=== PATIENT | female | born 1970 | race Caucasian/White ===

== ENCOUNTER 2019-02-12 12:08 | Emergency (ER) | payer MEDICAID, OTHER ==
[~2019-02-12] VITALS: Ht 157.5 cm; Wt 72.6 kg
--- OUTSIDE RECORDS SUMMARY | 2019-02-12 12:17 | XMS REPORT ---
Author Author STAR GARCIA Organization [facility] Address [address] [place] [address] Care Team Providers Care Cloth Shearer Name Role Phone STAR GARCIA Unavailable PROBLEMS Type Condition ICD9-CM Code [id number] Code Onset Dates Condition Status SNOMED Code Problem Essential hypertension I10 Active 28899258 Problem COPD mixed type J44.9 Active 17500901 Problem Hyperlipidemia, unspecified hyperlipidemia type E78.5 Active 19949199 Problem Gastroesophageal reflux disease without esophagitis K21.9 Active 981230568 Problem Lumbago with sciatica, left side M54.42 Active 331968142 Problem Depression with anxiety F41.8 Active 99084183 Problem Lumbago with sciatica, right side M54.41 Active 167676142854085 Problem Mental retardation F79 Active 421476805 Problem Other chronic pain G89.29 Active 86668892 Problem Anxiety with depression F41.8 Active 32101074 Problem Neuropathy of both feet G57.93 Active 655238464 Problem Insomnia, unspecified type G47.00 Active 770335019 ALLERGIES No Information ENCOUNTERS Encounter Location Date Diagnosis [address] [address] January, Lumbago with sciatica, left side M54.[address] [address] Dec, Lumbago with sciatica, left side M54.[address] [address] Dec, Insomnia, unspecified type G47.00 and Depression with anxiety F41.[address] [address] Dec, [address] [address] Dec, [facility] [address] [address] Dec, Lumbago with sciatica, left side M54.[address] [address] Nov, Lumbago with sciatica, left side M54.42 [facility] [address] [id number] [address] Nov, Depression with anxiety F41.[address] [address] Nov, Depression with anxiety F41.8 [facility] [address] [id number] [address] Nov, [address] [address] Nov, [address] [address] Nov, Depression with anxiety F41.8 ; Hyperlipidemia, unspecified hyperlipidemia type E78.5 and Essential hypertension I10 [facility] [address] [address] Nov, [address] [address] Nov, Essential hypertension I10 [address] [address] Nov, [address] [address] Nov, Essential hypertension I10 [address] [address] Oct, [facility] [address] [facility] [id number] [address] Oct, [address] [address] Oct, [facility] [address] [facility] [id number] [address] Oct, Neuropathy of both feet G57.93 [facility] [address] [place] [address] [place] [id number] 14 Oct, [address] [address] Oct, [address] [address] Oct, Essential hypertension I10 ; Anxiety with depression F41.8 ; COPD mixed type J44.9 ; Other chronic pain G89.29 ; Non-recurrent acute suppurative otitis media of right ear without spontaneous rupture of tympanic membrane H66.001 ; Lumbago with sciatica, left side M54.42 ; Lumbago with sciatica, right side M54.41 ; Insomnia, unspecified type G47.00 ; Neuropathy of both feet G57.93 and Gastroesophageal reflux disease without esophagitis K21.9 [facility] [address] [facility] [id number] [address] Jul, Depression with anxiety F41.8 ; COPD mixed type J44.9 ; Essential hypertension I10 ; Hyperlipidemia, unspecified hyperlipidemia type E78.5 ; Pain in thoracic spine M54.6 and Other chronic pain G89.[address] [facility] [address] [place] [address] Apr, [address] [address] Mar, COPD mixed type J44.9 ; Depression with anxiety F41.8 ; Gastroesophageal reflux disease without esophagitis K21.9 ; Essential hypertension I10 and Mental retardation F79 [facility] [address] [place] [address] Aug, IMMUNIZATIONS No Known Immunizations SOCIAL HISTORY Never Assessed REASON FOR VISIT Controlled Med Refill 11/22 PLAN OF CARE VITAL SIGNS MEDICATIONS Medication Instructions Dosage Frequency Start Date End Date Duration Status Klonopin 0.5 MG Orally 2 times a day 1/2 tablet 12h Oct, 05 days Active RESULTS No Results PROCEDURES No Known procedures INSTRUCTIONS MEDICATIONS ADMINISTERED No Known Medications MEDICAL (GENERAL) HISTORY Type Description Date Medical History patient poor historian Medical History HTN Medical History anxiety and depression Medical History Chronic obstructive pulmonary disease, unspecified Surgical History hysterectomy Surgical History Surgical History colonoscopy with possible polyps, repeat 1-2 years from now 2016 Hospitalization History surgeries/childbirth Hospitalization History chest pain
--- OUTSIDE RECORDS SUMMARY | 2019-02-12 12:17 | XMS REPORT ---
Author Author MARINA GUERRERO Organization [facility] [address] Address [address] [place] [address] Care Team Providers Care Foundry Hand Name Role Phone MARINA GUERRERO Unavailable PROBLEMS Type Condition ICD9-CM Code [id number] Code Onset Dates Condition Status SNOMED Code Problem Essential hypertension I10 Active 90806218 Problem Depression with anxiety F41.8 Active 86903008 Problem COPD mixed type J44.9 Active 66132666 Problem Mental retardation F79 Active 806511704 Problem Gastroesophageal reflux disease without esophagitis K21.9 Active 254124251 ALLERGIES No Information ENCOUNTERS Encounter Location Date Diagnosis [facility] [address] [place] [address] Apr, [facility] [address] [place] [address] Mar, COPD mixed type J44.9 ; Depression with anxiety F41.8 ; Gastroesophageal reflux disease without esophagitis K21.9 ; Essential hypertension I10 and Mental retardation F79 [facility] [address] [place] [address] Aug, IMMUNIZATIONS No Known Immunizations SOCIAL HISTORY Never Assessed REASON FOR VISIT Medication question PLAN OF CARE VITAL SIGNS MEDICATIONS Unknown Medications RESULTS No Results PROCEDURES No Known procedures INSTRUCTIONS MEDICATIONS ADMINISTERED No Known Medications MEDICAL (GENERAL) HISTORY Type Description Date Medical History patient poor historian Medical History HTN Surgical History hysterectomy Surgical History Surgical History colonoscopy with possible polyps, repeat 1-1/2 years from now 2016 Hospitalization History surgeries/childbirth Hospitalization History chest pain
--- OUTSIDE RECORDS SUMMARY | 2019-02-12 12:17 | XMS REPORT ---
Author Author MARINA GUERRERO Organization [facility] [address] Address [address] [place] [address] Care Team Providers Care Recapper Name Role Phone MARINA GUERRERO Unavailable PROBLEMS Type Condition ICD9-CM Code [id number] Code Onset Dates Condition Status SNOMED Code Problem Essential hypertension I10 Active 90932273 Problem Depression with anxiety F41.8 Active 55702331 Problem COPD mixed type J44.9 Active 51631491 Problem Mental retardation F79 Active 319387748 Problem Gastroesophageal reflux disease without esophagitis K21.9 Active 318156891 ALLERGIES Substance Reaction Event Type Date Status Iodine anaphylaxis Drug Allergy Mar, Active ENCOUNTERS Encounter Location Date [facility] [address] [place] [phone] Apr, [facility] [address] [place] [phone] Mar, COPD mixed type J44.9 ; Depression with anxiety F41.8 ; Gastroesophageal reflux disease without esophagitis K21.9 ; Essential hypertension I10 and Mental retardation F79 [facility] [place] [address] [place] [phone] Aug, IMMUNIZATIONS No Known Immunizations SOCIAL HISTORY Never Assessed REASON FOR VISIT Establish Chaka Sher RN, Patient brought in medications with her to [facility], she reports taking xanax 1 mg 3 times per day but she did not have the [facility] PLAN OF CARE Activity Details Follow Up 4 Weeks Reason:copd/bp VITAL SIGNS Height 62 in 2018-04-01 Weight 155.1 lbs 2018-04-01 Temperature 97.9 degrees Fahrenheit 2018-04-01 Heart Rate 88 bpm 2018-04-01 Respiratory Rate 18 2018-04-01 BMI 28.37 kg/m2 2018-04-01 Blood pressure systolic 150 mmHg 2018-04-01 Blood pressure diastolic 92 mmHg 2018-04-01 MEDICATIONS Medication Instructions Dosage Frequency Start Date End Date Duration Status Duloxetine HCl 30 MG Orally Once a day 1 capsule 24h Active Ondansetron HCl 4 MG Orally every8 hrs 1 tablet as needed Active Pantoprazole Sodium 40 MG Orally Once a day 1 tablet 24h Active ProAir HFA 108 (90 Base) MCG/ACT Inhalation every 6 hrs 2 puffs as needed 6h Active Aspirin Adult Low Dose 81 MG Orally Once a day 1 tablet 24h Active Potassium Chloride ER 10 MEQ Orally Once a day 2 tablet with food 24h Active Loperamide HCl 2 MG Orally Four times a day 1 tablet as needed 6h Active Cyclobenzaprine HCl 10 MG Orally Three times a day 1 tablet as needed 8h Active Propranolol HCl 20 mg Orally 3 times a day 1 tablet 8h Active RESULTS No Results PROCEDURES Procedure Date Ordered Result Body Site LAB [facility] April 01, 2018 INSTRUCTIONS MEDICATIONS ADMINISTERED No Known Medications MEDICAL (GENERAL) HISTORY Type Description Date Medical History patient poor historian Medical History HTN Surgical History hysterectomy Surgical History Surgical History colonoscopy with possible polyps, repeat 1-1/2 years from now 2016 Hospitalization History surgeries/childbirth Hospitalization History chest pain
--- OUTSIDE RECORDS SUMMARY | 2019-02-12 12:17 | XMS REPORT ---
Author Author AMANDO QUISPE Organization [facility] Address [address] [place] [address] Care Team Providers Care Mat Repairer Name Role Phone AMANDO QUISPE Unavailable PROBLEMS Type Condition ICD9-CM Code ZGD29-YB Code Onset Dates Condition Status SNOMED Code Problem COPD mixed type J44.9 Active 81372533 Problem Other chronic pain G89.29 Active 17591910 Problem Hyperlipidemia, unspecified hyperlipidemia type E78.5 Active 00283195 Problem Mental retardation F79 Active 764804480 Problem Gastroesophageal reflux disease without esophagitis K21.9 Active 054846886 Problem Essential hypertension I10 Active 02434629 Problem Depression with anxiety F41.8 Active 46502058 ALLERGIES Substance Reaction Event Type Date Status Iodine anaphylaxis Drug Allergy Jul, Active ENCOUNTERS Encounter Location Date Diagnosis [facility] [address] [facility] [id number] [address] Jul, Depression with anxiety F41.8 ; COPD mixed type J44.9 ; Essential hypertension I10 ; Hyperlipidemia, unspecified hyperlipidemia type E78.5 ; Pain in thoracic spine M54.6 and Other chronic pain G89.29 [facility] [address] [place] [address] Apr, [facility] [address] [place] [phone] Mar, COPD mixed type J44.9 ; Depression with anxiety F41.8 ; Gastroesophageal reflux disease without esophagitis K21.9 ; Essential hypertension I10 and Mental retardation F79 [facility] [address] [place] [phone] Aug, IMMUNIZATIONS No Known Immunizations SOCIAL HISTORY Never Assessed REASON FOR VISIT establish care - transf from dr hector byrne in [place], medica tion refills Constance Trevizo MA PLAN OF CARE Activity Details Follow Up 3 Months. 3 months or as indicated by lab Reason: VITAL SIGNS Height 62 in 2018-08-12 Weight 154.5 lbs 2018-08-12 Temperature 97.2 degrees Fahrenheit 2018-08-12 Heart Rate 97 bpm 2018-08-12 Respiratory Rate 20 2018-08-12 BMI 28.26 kg/m2 2018-08-12 Blood pressure systolic 136 mmHg 2018-08-12 Blood pressure diastolic 84 mmHg 2018-08-12 MEDICATIONS Medication Instructions Dosage Frequency Start Date End Date Duration Status Potassium Chloride ER 10 MEQ Orally Once a day 2 tablet with food 24h Active ProAir HFA 108 (90 Base) MCG/ACT Inhalation every 6 hrs 2 puffs as needed 6h Active Propranolol HCl 20 mg Orally 3 times a day 1 tablet 8h Active Duloxetine HCl 30 MG Orally Once a day 1 capsule 24h Active Tizanidine HCl 4 MG Orally 4 times a day, prn muscle spasm 1 tablet as needed Jul, 28 days Active Simvastatin 5 mg Orally Once a day 1 tablet in the evening 24h 30 day(s) Active Aspirin Adult Low Dose 81 MG Orally Once a day 1 tablet 24h Active Pantoprazole Sodium 40 MG Orally Once a day 1 tablet 24h Active Loperamide HCl 2 MG Orally Four times a day 1 tablet as needed 6h Active Ondansetron HCl 4 MG Orally every8 hrs 1 tablet as needed Active Aspirin 81 MG Orally Once a day 1 tablet 24h Jul, 30 day(s) Active RESULTS No Results PROCEDURES No Known procedures INSTRUCTIONS MEDICATIONS ADMINISTERED No Known Medications MEDICAL (GENERAL) HISTORY Type Description Date Medical History patient poor historian Medical History HTN Surgical History hysterectomy Surgical History Surgical History colonoscopy with possible polyps, repeat 1-1/2 years from now 2016 Hospitalization History surgeries/childbirth Hospitalization History chest pain
--- OUTSIDE RECORDS SUMMARY | 2019-02-12 12:17 | XMS REPORT | Continuity of Care Document ---
Author Organization Unknown Address Unknown Allergies There is no data. Medications There is no data. Problems There is no data. Procedures There is no data. Results There is no data. Encounters ACCT No. Visit Date/Time Discharge Status Pt. Type Provider Facility Loc./Unit Complaint [id number] 02/03/2019 10:20:00 02/03/2019 23:59:59 CLS Outpatient GENOVEVA BROWN [facility]
--- OUTSIDE RECORDS SUMMARY | 2019-02-12 12:17 | XMS REPORT ---
Author Author MARINA GUERRERO [facility] Address [address] [place] [address] Care Team Providers Care Book Illustrator Name Role Phone MARINA GUERRERO Unavailable PROBLEMS Unknown Problems ALLERGIES No Information ENCOUNTERS Encounter Location Date Diagnosis [facility] [address] [facility] [id number] [place] [id number] Aug, IMMUNIZATIONS No Known Immunizations SOCIAL HISTORY Never Assessed REASON FOR VISIT PMH attempt PLAN OF CARE VITAL SIGNS MEDICATIONS Medication Instructions Dosage Frequency Start Date End Date Duration Status Propranolol HCl 20 mg Orally 3 times a day 1 tablet 8h Active RESULTS No Results PROCEDURES No Known procedures INSTRUCTIONS MEDICATIONS ADMINISTERED No Known Medications MEDICAL (GENERAL) HISTORY Type Description Date Medical History patient poor historian
[2019-02-12] MEDS: LIDOCAINE 1% INJ 20 ML 20 ML VIAL INJ ONE (12:20)
--- NOTE | 2019-02-12 12:24 | ED Head Injury ---
General Chief Complaint: Head/Cervical Problems Stated Complaint: HEAD INJ Source: patient Exam Limitations: no limitations History of Present Illness Date Seen by Provider: February 12, 2019 Time Seen by Provider: 12:08 Initial Comments Patient comes ER by private conveyance with her sister and chief complaint that 3 or 4 days ago she was working in her dog's kennel and struck the top of her right parietal scalp against the inside bar of the kennel. She thinks, infected because now it's getting more swollen and painful and causing headaches today. She has history of abscesses in the past. No fevers chills nausea or loss of consciousness. Allergies and Home Medications Allergies Coded Allergies: iodine (Verified Allergy, Unknown, 02/12/19) diphenhydramine (Verified Adverse Reaction, Unknown, eyes water, 02/12/19) Patient Home Medication List Home Medication List Reviewed: Yes Review of Systems Review of Systems Constitutional: No chills, No fever, No malaise Eyes: Denies Blindness, Denies Blurred Vision Ears, Nose, Mouth, Throat: denies ear pain, denies ear discharge Respiratory: No cough, No short of breath Cardiovascular: No chest pain, No edema Gastrointestinal: No abdominal pain, No nausea Genitourinary: No discharge, No dysuria Past Toiqysu-Rcwwoy-Snnxrr Hx Patient Social History Smoking Status: Current Everyday Smoker Physical Exam Vital Signs Capillary Refill : Height, Weight, BMI Height: '" Weight: lbs. oz. kg; BMI Method: General Appearance: WD/WN, no apparent distress HEENT: PERRL/EOMI, normal ENT inspection, TMs normal, pharynx normal, other (no Chavez sign and raccoon eyes or hemotympanum. She does have a right parietal scalp an erythematous, raised 1 cm nodule with a central pore and pointing consistent with possible abscess.) Neck: non-tender, full range of motion, normal inspection Cardiovascular: normal peripheral pulses, regular rate, rhythm Respiratory: no respiratory distress, no accessory muscle use Psychiatric: alert, oriented x 3 Procedures/Interventions I&D : Site: right parietal scalp Blade Size: 15 Progress Wound was cleaned thoroughly with hydrogen peroxide and then infiltrated with 2 cc of 1% lidocaine without epinephrine. When the skin was not styes we then made a cross becerril incision using a 15 blade scalpel and expressed about 1-2 cc of whi te thick caseous purulent material. Progress/Results/Core Measures Results/Orders My Orders Orders - SKYLAR ROSE Lidocaine 1% Inj 20 Ml (Xylocaine 1% Inj (02/12/19 12:30) Progress Progress Note : Time: 12:21 Progress Note Plan to harshal this with lidocaine and put her on a couple days of antibiotics and follow-up in a week with primary care. It's an unusual presentation for an abscess/folliculitis. Departure Impression Primary Impression: Abscess Disposition: 01 HOME, SELF-CARE Condition: Stable Departure-Patient Inst. Decision time for Depature: 12:31 Referrals: [facility]EL[facility] (PCP) Primary Care Physician GENOVEVA BROWN APRN (Family) Primary Care Physician Patient Instructions: Abscess Incision and Drainage Add. Discharge Instructions: Keep the wound clean with regular soap and water or shampoo only. Do not put anything on the wound. material control supervisor the Bactrim take one tablet twice a day for the next 5 days. Follow-up with primary care. Improving. Tylenol and Motrin as necessary for pain. Hydrocodone for breakthrough pain. All discharge instructions reviewed with patient and/or family. Voiced understanding. Scripts Hydrocodone Bit/Acetaminophen (Hydrocodone/Acetaminophen 5/325mg Tablet) 1 Tab Tab 1 EACH PO Q6H PRN for PAIN-MODERATE MDD 10, #6 TAB 0 Refills Prov: SKYLAR ROSE 02/12/19 Sulfamethoxazole/Trimethoprim (Bactrim Ds Tablet) 1 Each Tablet 1 EACH PO BID for 5 Days, #10 TAB 0 Refills Prov: SKYLAR ROSE 02/12/19 SKYLAR ROSE February 12, 2019 12:24
[2019-02-12] MEDS ORDERED: ACHD5005 PO (12:33)
[2019-02-12] MEDS ORDERED: SULF1TAB35 PO (12:33)
[2019-02-12 12:45] VITALS: BP 173/91
== END 2019-02-12 12:46 | disposition home or self-care (01) ==
LOC: ER FS 12:11
DX: L02.811 Cutaneous abscess of head [any part, except face] (principal); F17.200 Nicotine dependence, unspecified, uncomplicated; Z91.041 Radiographic dye allergy status; Z88.8 Allergy status to other drugs, medicaments and biological substances; W22.09XA Striking against other stationary object, initial encounter
CPT/HCPCS: 99282

== ENCOUNTER 2019-06-03 19:00 | Emergency (ER) | payer MEDICAID ==
[~2019-06-03] VITALS: Ht 157 cm; Wt 73.0 kg
[~2019-06-03 19:00] MED LIST: ACHD5005 PO; SULF1TAB35 PO
--- NOTE | 2019-06-03 20:18 | Diagnostic Imaging Report ---
PROCEDURE: CT head and CT cervical spine without contrast. TECHNIQUE: Multiple contiguous axial images were obtained through the brain and cervical spine without the use of intravenous contrast. Sagittal and coronal reformations through the cervical spine were then performed. Auto Exposure Controls were utilized during the CT exam to meet ALARA standards for radiation dose reduction. INDICATION: Fall with head and neck pain CT HEAD: CT images of the head were obtained. FINDINGS: Ventricles and sulci are within normal limits for size. There is no intracranial hemorrhage identified. There is no abnormal mass effect or shift of midline structures. IMPRESSION: Unremarkable CT of the head. CT CERVICAL SPINE: Multiple contiguous axial CT images of the cervical spine were obtained with sagittal and coronal reformatted images produced. FINDINGS: There is loss of normal cervical lordosis. Vertebral body heights and disc spaces are maintained. Prevertebral soft tissues are unremarkable, and there is no evidence of paraspinous hematoma. IMPRESSION: Loss of normal cervical lordosis which may be due to positioning or muscle spasm. There is, otherwise, no CT evidence of acute cervical spinal abnormality. Dictated by: Dictated on workstation # [id number]
[2019-06-03 20:19] LABS: HEMATOCRIT 36 % (35-52); HEMOGLOBIN 11.8 G/DL (11.5-16.0); MEAN CORPUSCULAR HEMOGLOBIN 31 PG (25-34); MEAN CORPUSCULAR HGB CONC 33 G/DL (32-36); MEAN CORPUSCULAR VOLUME 94 FL (80-99); MEAN PLATELET VOLUME 10.2 FL (7.4-10.4); PLATELET COUNT 238 10^3/uL (130-400); RED CELL DISTRIBUTION WIDTH 13.2 % (10.0-14.5); WHITE BLOOD COUNT 9.2 10^3/uL (4.3-11.0)
--- NOTE | 2019-06-03 20:19 | Diagnostic Imaging Report ---
INDICATION: Fall with chest pain and dyspnea Single AP view of the chest is obtained. There is no previous study for comparison. Overall heart size and pulmonary vascularity are within normal limits. There is mild atelectasis in the right base. There is no evidence of pneumothorax or consolidation. No significant pleural fluid is seen. IMPRESSION: Mild right basilar atelectasis with otherwise unremarkable chest. Dictated by: Dictated on workstation # [id number]
[2019-06-03 20:20] LABS: BASOPHILS # (AUTO) 0.1 10^3/uL (0.0-0.1); BASOPHILS % (AUTO) 1 % (0-10); EOSINOPHILS # (AUTO) 0.2 10^3/uL (0.0-0.3); EOSINOPHILS % (AUTO) 2 % (0-10); LYMPHOCYTES # (AUTO) 3.2 X 10^3 (1.0-4.0); LYMPHOCYTES % (AUTO) 35 % (12-44); MONOCYTES # (AUTO) 0.6 X 10^3 (0.0-1.0); MONOCYTES % (AUTO) 6 % (0-12); NEUTROPHILS # (AUTO) 5.1 X 10^3 (1.8-7.8); NEUTROPHILS % (AUTO) 56 % (42-75)
[2019-06-03 20:33] LABS: PROTHROMBIN TIME PATIENT 13.7 SEC (12.2-14.7)
[2019-06-03 20:41] LABS: BUN/CREATININE RATIO 8; CARBON DIOXIDE 28 MMOL/L (21-32); CHLORIDE 97 MMOL/L (98-107); CREATININE SERUM 0.73 MG/DL (0.60-1.30); GFR ESTIMATED > 60; POTASSIUM 3.5 MMOL/L (3.6-5.0); SODIUM 138 MMOL/L (135-145)
[2019-06-03 20:42] LABS: ALANINE AMINOTRANSFERASE 41 U/L (0-55); ALBUMIN 3.6 GM/DL (3.2-4.5); ALKALINE PHOSPHATASE 152 U/L (40-136); BILIRUBIN,TOTAL 0.3 MG/DL (0.1-1.0); CALCIUM 8.5 MG/DL (8.5-10.1); GLUCOSE 104 MG/DL (70-105); MAGNESIUM 1.4 MG/DL (1.6-2.4); TOTAL PROTEIN 6.3 GM/DL (6.4-8.2)
--- NOTE | 2019-06-03 21:18 | ED General ---
General Chief Complaint: General Problems/Pain Stated Complaint: WEAK,HEADACHE, BUMPS ON HEAD, CHEST PAIN Nursing Triage Note: PT FELL ONE WEEK AGO AND HIT BACK OF HER HEAD. PT WAS NOT SEEN FOR THE FALL AT THAT TIME. PT PRESENTS TODAY WITH DIZZINESS, CHEST PAIN, ABRASIONS TO LEFT SIDE, AND PAIN IN BACK OF HEAD FROM THE FALL Nursing Sepsis Screen: No Definite Risk Source of Information: Patient, Family History of Present Illness Date Seen by Provider: Jun 03, 2019 Time Seen by Provider: 20:51 Initial Comments 49-year-old female presenting with complaints of falling about a week ago. She has been having dizziness with occipital headache since then. She also has been coughing and having chest pain. She is not feeling well overall. She has some occasional nausea and vomiting. She denies any fever or chills. She has been more somnolent. She is been sleeping at home in bed most the day. Her family brought her to the emergency department this evening to be evaluated. She has a sore spot on the back of her head from where she had hit it. Allergies and Home Medications Allergies Coded Allergies: iodine (Verified Allergy, Unknown, 02/12/19) diphenhydramine (Verified Adverse Reaction, Unknown, eyes water, 02/12/19) Home Medications Hydrocodone Bit/Acetaminophen 1 Tab Tab, 1 EACH PO Q6H PRN for PAIN-MODERATE Prescribed by: SKYLAR ROSE on 02/12/19 1233 Sulfamethoxazole/Trimethoprim 1 Each Tablet, 1 EACH PO BID Prescribed by: SKYLAR ROSE on 02/12/19 1233 Patient Home Medication List Home Medication List Reviewed: Yes Review of Systems Review of Systems Constitutional: No chills; dizziness; No fever; malaise EENTM: No ear pain, No double vision, No mouth swelling, No epistaxis, No throat swelling Respiratory: cough Cardiovascular: chest pain (pain with the deep breaths) Gastrointestinal: nausea, vomiting (occasional) Genitourinary: decreased output; No dysuria Musculoskeletal: muscle pain Skin: No rash Psychiatric/Neurological: Headache (occipital where she hit her head) Past Iejrbvw-Pjceaw-Bfoiac Hx Past Med/Social Hx: Reviewed Nursing Past Med/Soc Hx Patient Social History Alcohol Use: Denies Use Recreational Drug Use: No Drug of Choice: marijuana Smoking Status: Current Everyday Smoker Type Used: Cigarettes 2nd Hand Smoke Exposure: No Recent Foreign Travel: No Contact w/Someone Who Travel: No Recent Infectious Disease Expo: No Recent Hopitalizations: No Physical Abuse: No Sexual Abuse: No Mistreated: No Fear: No Seasonal Allergies Seasonal Allergies: No Past Medical History Surgeries: Yes Section, Gallbladder, Hysterectomy Respiratory: No Cardiac: Yes High Cholesterol Neurological: Yes Neuropathy Genitourinary: No Gastrointestinal: No Musculoskeletal: Yes Chronic Back Pain Endocrine: No HEENT: No Cancer: No Psychosocial: No Integumentary: No Blood Disorders: No Physical Exam Vital Signs Vital Signs - First Documented 06/03/19 19:05 Temp 37.1 Pulse 61 Resp 22 B/P (MAP) 139/94 (109) Pulse Ox 96 O2 Delivery Room Air Capillary Refill : Less Than 3 Seconds Height, Weight, BMI Height: 5'2.00" Weight: 160lbs. oz. [id number]; 29.00 BMI Method:Stated General Appearance: No Apparent Distress, Chronically ill, Other (patient appears somnolent) Eyes: Bilateral Eye PERRL, Bilateral Eye EOMI HEENT: PERRL/EOMI, TMs Normal, Pharynx Normal Neck: Normal Inspection, Supple Respiratory: Chest Non Tender, Lungs Clear, Normal Breath Sounds, No Accessory Muscle Use, No Respiratory Distress Cardiovascular: Regular Rate, Rhythm, Normal Peripheral Pulses Gastrointestinal: Normal Bowel Sounds, No Pulsatile Mass, Non Tender, Soft Extremity: Normal Capillary Refill, Normal Inspection, No Pedal Edema Neurologic/Psychiatric: Oriented x3, No Motor/Sensory Deficits, Other (patient is awake but somnolent) Skin: Normal Color, Warm/Dry Progress/Results/Core Measures Suspected Sepsis Recent Fever Within 48 Hours: No Infection Criteria Present: None New/Unexplained Altered Menta: No Sepsis Screen: No Definite Risk SIRS Temperature: Pulse: 61 Respiratory Rate: 22 Laboratory Tests 06/03/19 19:50: White Blood Count 9.2 Blood Pressure 139 /94 Mean: 109 Laboratory Tests 06/03/19 19:50: Creatinine 0.73, INR Comment 1.0, Platelet Count 238, Total Bilirubin 0.3 Results/Orders Lab Results Laboratory Tests Test 06/03/19 19:50 Range/Units White Blood Count 9.2 4.3-11.0 10^3/uL Red Blood Count 3.81 L 4.35-5.85 10^6/uL Hemoglobin 11.8 11.5-16.0 G/DL Hematocrit 36 35-52 % Mean Corpuscular Volume 94 80-99 FL Mean Corpuscular Hemoglobin 31 25-34 PG Mean Corpuscular Hemoglobin Concent 33 32-36 G/DL Red Cell Distribution Width 13.2 10.0-14.5 % Platelet Count 238 130-400 10^3/uL Mean Platelet Volume 10.2 7.4-10.4 FL Neutrophils (%) (Auto) 56 42-75 % Lymphocytes (%) (Auto) 35 12-44 % Monocytes (%) (Auto) 6 0-12 % Eosinophils (%) (Auto) 2 0-10 % Basophils (%) (Auto) 1 0-10 % Neutrophils # (Auto) 5.1 1.8-7.8 X 10^3 Lymphocytes # (Auto) 3.2 1.0-4.0 X 10^3 Monocytes # (Auto) 0.6 0.0-1.0 X 10^3 Eosinophils # (Auto) 0.2 0.0-0.3 10^3/uL Basophils # (Auto) 0.1 0.0-0.1 10^3/uL Prothrombin Time 13.7 12.2-14.7 SEC INR Comment 1.0 0.8-1.4 Activated Partial Thromboplast Time 26 24-35 SEC Sodium Level 138 135-145 MMOL/L Potassium Level 3.5 L 3.6-5.0 MMOL/L Chloride Level 97 L 98-107 MMOL/L Carbon Dioxide Level 28 21-32 MMOL/L Anion Gap 13 5-14 MMOL/L Blood Urea Nitrogen 6 L 7-18 MG/DL Creatinine 0.73 0.60-1.30 MG/DL Estimat Glomerular Filtration Rate > 60 BUN/Creatinine Ratio 8 Glucose Level 104 70-105 MG/DL Calcium Level 8.5 8.5-10.1 MG/DL Corrected Calcium 8.8 8.5-10.1 MG/DL Magnesium Level 1.4 L 1.6-2.4 MG/DL Total Bilirubin 0.3 0.1-1.0 MG/DL Aspartate Amino Transf (AST/SGOT) 40 H 5-34 U/L Alanine Aminotransferase (ALT/SGPT) 41 0-55 U/L Alkaline Phosphatase 152 H 40-136 U/L Troponin I < 0.30 <0.30 NG/ML Pro-B-Type Natriuretic Peptide 250.0 H <75.0 PG/ML Total Protein 6.3 L 6.4-8.2 GM/DL Albumin 3.6 3.2-4.5 GM/DL My Orders Orders - DORIAN ALEJANDRA MD Cbc With Automated Diff (06/03/19 19:30) Magnesium (06/03/19 19:30) Chest 1 View Ap/Pa Only (06/03/19:30) Ekg Tracing (06/03/19:30) Comprehensive Metabolic Panel (06/03/19:30) Protime With Inr (06/03/19:30) Partial Thromboplastin Time (06/03/19:30) O2 (06/03/19:30) Monitor-Rhythm Ecg Trace Only (06/03/19:30) Ed Iv/Invasive Line Start (06/03/19:30) Troponin I (06/03/19:30) Probnp Fs (06/03/19:30) Ct Head/Cervical Spine Wo (06/03/19 19:30) Ketorolac Injection (Toradol Injection) (06/03/19 21:30) Medications Given in ED Current Medications Medications Dose Ordered Sig/Jason Route Start Time Stop Time Status Last Admin Dose Admin Ketorolac Tromethamine 30 mg ONCE ONCE IVP 06/03/19 21:30 06/03/19 21:31 DC 06/03/19 21:23 30 MG Vital Signs/I&O 06/03/19 06/03/19 19:05 21:50 Temp 37.1 Pulse 61 60 Resp 22 18 B/P (MAP) 139/94 (109) 128/74 Pulse Ox 96 94 O2 Delivery Room Air Capillary Refill : Less Than 3 Seconds Blood Pressure Mean: 109 Progress Note #1: Progress Note Check basic labs as well as CT abdomen and evaluate for any intracranial hemorrhage or stroke. With her also complaining of the sharp chest pain with breathing well check an electrocardiogram and chest x-ray. Progress Note #2: Progress Note No acute findings on CT of the head. Her chest x-ray did not show any infiltrate or pneumothorax. Her labs were negative for acute coronary syndrome. She had no elevation of her white blood cell count. She was requesting something for her headache and to be discharged to home. She didn't look like she was little dehydrated and I advised her to give her some fluids and try and get her to feel better here. She refused that wanted to just get something for pain to be discharged home. She stated that she will follow up with Therese Brown in the clinic for further concerns. Give a dose of Toradol here IV and discharged home as the patient was already little somnolent a did not feel comfortable giving her any sedating medications or narcotics. ECG Initial ECG Impression Date: Jun 03, 2019 Initial ECG Impression Time: 19:10 Initial ECG Rate: 62 Initial ECG Rhythm: Normal Sinus Initial ECG Comparisson: No Previous ECG Available Comment Normal sinus rhythm with heart rate 62 bpm. DC interval of 217 ms. QT interval 448 ms and a QT corrected interval 455 ms. There is no acute ST elevation. No prior tracing available for comparison. Diagnostic Imaging Diagonstic Imaging: CT Plain Films/CT/US/NM/MRI: c-spine, head Comments NAME: ANA CRISTINA CHERRY [facility] REC#: [id number] PT STATUS: DEP ER : 1970 PHYSICIAN: DORIAN ALEJANDRA MD ADMIT DATE: 06/03/19/ER FS Signed Date of Exam:06/03/19 CT HEAD/CERVICAL SPINE WO PROCEDURE: CT head and CT cervical spine without contrast. TECHNIQUE: Multiple contiguous axial images were obtained through the brain and cervical spine without the use of intravenous contrast. Sagittal and coronal reformations through the cervical spine were then performed. Auto Exposure Controls were utilized during the CT exam to meet ALARA standards for radiation dose reduction. INDICATION: Fall with head and neck pain CT HEAD: CT images of the head were obtained. FINDINGS: Ventricles and sulci are within normal limits for size. There is no intracranial hemorrhage identified. There is no abnormal mass effect or shift of midline structures. IMPRESSION: Unremarkable CT of the head. CT CERVICAL SPINE: Multiple contiguous axial CT images of the cervical spine were obtained with sagittal and coronal reformatted images produced. FINDINGS: There is loss of normal cervical lordosis. Vertebral body heights and disc spaces are maintained. Prevertebral soft tissues are unremarkable, and there is no evidence of paraspinous hematoma. IMPRESSION: Loss of normal cervical lordosis which may be due to positioning or muscle spasm. There is, otherwise, no CT evidence of acute cervical spinal abnormality. Dictated by: Dictated on workstation # [id number] Dict: 06/03/192014 Trans: 06/03/[address] [facility] [id number] Interpreted by: AURE AUGUST MD Electronically signed by: AURE AUGUST MD 06/03/192152 Diagonstic Imaging: Xray Plain Films/CT/US/NM/MRI: chest Comments NAME: ANA CRISTINA CHERRY [facility] REC#: [id number] PT STATUS: DEP ER : 1970 PHYSICIAN: DORIAN ALEJANDRA MD ADMIT DATE: 06/03/19/ER FS Signed Date of Exam:06/03/19 CHEST 1 VIEW AP/PA ONLY INDICATION: Fall with chest pain and dyspnea Single AP view of the chest is obtained. There is no previous study for comparison. Overall heart size and pulmonary vascularity are within normal limits. There is mild atelectasis in the right base. There is no evidence of pneumothorax or consolidation. No significant pleural fluid is seen. IMPRESSION: Mild right basilar atelectasis with otherwise unremarkable chest. Dictated by: Dictated on workstation # [id number] Dict: 06/03/192016 Trans: 06/03/192152 [facility] [id number] Interpreted by: AURE AUGUST MD Electronically signed by: AURE AUGUST MD 06/03/192152 Departure Impression Primary Impression: Concussion Qualified Codes: S06.0X0A - Concussion without loss of consciousness, initial encounter Additional Impressions: Dehydration Hypomagnesemia Occipital headache Disposition: 01 HOME, SELF-CARE Condition: Stable Departure-Patient Inst. Decision time for Depature: 21:41 [place]: [facility] [place] Primary Care Physician GENOVEVA BROWN APRN (Family) Primary Care Physician Patient Instructions: Concussion, Adult (DC), Tension Headache (DC), Low Magnesium Level (DC), Dehydration, Adult (DC) Add. Discharge Instructions: Check back with Therese Brown in clinic. Try to drink more fluids Continue on your regular medicines. Be more careful in your bed and with walking around to prevent falls. All discharge instructions reviewed with patient and/or family. Voiced understanding. DORIAN ALEJANDRA MD Jun 03, 2019 21:18
[2019-06-03] MEDS ORDERED: KETOROLAC 30 MG/ML VIAL IVP ONE (21:30)
[2019-06-03 21:50] VITALS: BP 128/74
== END 2019-06-03 21:52 | disposition home or self-care (01) ==
LOC: EDUNIT# 19:00 → ER FS 19:02
DX: S06.0X9A Concussion with loss of consciousness of unspecified duration, initial encounter (principal); E86.0 Dehydration; E83.42 Hypomagnesemia; R51 Headache; E78.00 Pure hypercholesterolemia, unspecified; G62.9 Polyneuropathy, unspecified; F17.210 Nicotine dependence, cigarettes, uncomplicated; Z90.710 Acquired absence of both cervix and uterus; Z88.8 Allergy status to other drugs, medicaments and biological substances; W19.XXXA Unspecified fall, initial encounter; W22.8XXA Striking against or struck by other objects, initial encounter
CPT/HCPCS: 36415; 70450; 71045; 72125; 80053; 83735; 83880; 84484; 85025; 85610; 85730; 93005; 93041

== ENCOUNTER 2019-12-03 15:14 | Emergency (ER) | payer MEDICAID ==
[~2019-12-03] VITALS: Ht 157.4 cm; Wt 70.4 kg
--- NOTE | 2019-12-03 15:23 | ED Abdominal Pain ---
General Chief Complaint: Abdominal/GI Problems Stated Complaint: COUGHING BLOOD Source of Information: Patient, EMS History of Present Illness Date Seen by Provider: Dec 03, 2019 Time Seen by Provider: 15:23 Initial Comments 49-year-old female presents with generalized body aches, nausea, vomiting, diarrhea, cough. Patient vomited/coughed up a little bit of red. She nausea versus blood or a cough drop. Patient has no abdominal pain. Patient feels a little dizzy. Patient is not having chest pain. Patient is unsure if she's had a fever. She denies any shortness of breath. She does not have any urinary symptom s Allergies and Home Medications Allergies Coded Allergies: iodine (Verified Allergy, Unknown, 02/12/19) diphenhydramine (Verified Adverse Reaction, Unknown, eyes water, 02/12/19) Home Medications Hydrocodone Bit/Acetaminophen 1 Tab Tab, 1 EACH PO Q6H PRN for PAIN-MODERATE Prescribed by: SKYLAR ROSE on 02/12/19 1233 Sulfamethoxazole/Trimethoprim 1 Each Tablet, 1 EACH PO BID Prescribed by: SKYLAR ROSE on 02/12/19 1233 Patient Home Medication List Home Medication List Reviewed: Yes Review of Systems Review of Systems Constitutional: dizziness; No fever Respiratory: Cough Cardiovascular: Denies Chest Pain, Denies Edema, Denies Irregular Heart Rate Gastrointestinal: Denies Abdominal Pain; Diarrhea, Nausea, Vomiting Genitourinary: No Symptoms Reported Musculoskeletal: no symptoms reported Skin: no symptoms reported, change in hair/nails Endocrine: No Symptoms Reported Past Fwqrhmz-Ksdihs-Umxddc Hx Past Med/Social Hx: Reviewed Nursing Past Med/Soc Hx Patient Social History Drug of Choice: marijuana Type Used: Cigarettes 2nd Hand Smoke Exposure: No Recent Hopitalizations: No Seasonal Allergies Seasonal Allergies: No Past Medical History Surgeries: Yes Section, Gallbladder, Hysterectomy Respiratory: No Cardiac: Yes High Cholesterol Neurological: Yes Neuropathy Genitourinary: No Gastrointestinal: No Musculoskeletal: Yes Chronic Back Pain Endocrine: No HEENT: No Cancer: No Psychosocial: No Integumentary: No Blood Disorders: No Physical Exam Vital Signs Vital Signs - First Documented 12/03/19 15:23 Temp 36.6 Pulse 102 Resp 18 B/P (MAP) 102/71 (81) Pulse Ox 94 O2 Delivery Room Air Capillary Refill : Height/Weight/BMI Height: 5'2.00" Weight: 160lbs. oz. 72.838168qr; 29.00 BMI Method:Stated General Appearance: WD/WN, no apparent distress Respiratory: chest non-tender, lungs clear, normal breath sounds Cardiovascular: normal peripheral pulses, regular rate, rhythm Gastrointestinal: non tender, soft Extremities: non-tender, normal inspection Back: no CVA tenderness, no vertebral tenderness Neurologic/Psychiatric: no motor/sensory deficits, alert, normal mood/affect, oriented x 3 Skin: normal color, warm/dry Progress/Results/Core Measures Results/Orders Lab Results Laboratory Tests Test 12/03/19 15:18 12/03/19 15:32 Range/Units White Blood Count 15.9 H 4.3-11.0 10^3/uL Red Blood Count 5.34 4.35-5.85 10^6/uL Hemoglobin 16.5 H 11.5-16.0 G/DL Hematocrit 48 35-52 % Mean Corpuscular Volume 89 80-99 FL Mean Corpuscular Hemoglobin 31 25-34 PG Mean Corpuscular Hemoglobin Concent 35 32-36 G/DL Red Cell Distribution Width 13.2 10.0-14.5 % Platelet Count 390 130-400 10^3/uL Mean Platelet Volume 9.7 7.4-10.4 FL Sodium Level 135 135-145 MMOL/L Potassium Level 2.7 L 3.6-5.0 MMOL/L Chloride Level 85 L 98-107 MMOL/L Carbon Dioxide Level 25 21-32 MMOL/L Anion Gap 25 H 5-14 MMOL/L Blood Urea Nitrogen 14 7-18 MG/DL Creatinine 1.58 H 0.60-1.30 MG/DL Estimat Glomerular Filtration Rate 35 BUN/Creatinine Ratio 9 Glucose Level 114 H 70-105 MG/DL Calcium Level 10.2 H 8.5-10.1 MG/DL Corrected Calcium 8.5-10.1 MG/DL Total Bilirubin 0.5 0.1-1.0 MG/DL Aspartate Amino Transf (AST/SGOT) 16 5-34 U/L Alanine Aminotransferase (ALT/SGPT) 17 0-55 U/L Alkaline Phosphatase 118 40-136 U/L Total Protein 8.7 H 6.4-8.2 GM/DL Albumin 4.7 H 3.2-4.5 GM/DL Lipase 36 8-78 U/L Urine Color YELLOW Urine Clarity CLEAR Urine pH 6.0 5-9 Urine Specific [place] 1.010 L 1.016-1.022 Urine Protein NEGATIVE NEGATIVE Urine Glucose (UA) NEGATIVE NEGATIVE Urine Ketones NEGATIVE NEGATIVE Urine Nitrite NEGATIVE NEGATIVE Urine Bilirubin NEGATIVE NEGATIVE Urine Urobilinogen 0.2 < = 1.0 MG/DL Urine Leukocyte Esterase NEGATIVE NEGATIVE Urine RBC (Auto) NEGATIVE NEGATIVE Urine RBC RARE /HPF Urine WBC RARE /HPF Urine Squamous Epithelial Cells 10-25 H /HPF Urine Crystals NONE /LPF Urine Bacteria NEGATIVE /HPF Urine Casts NONE /LPF Urine Mucus NONE /LPF Urine Culture Indicated NO Micro Results Microbiology 12/03/19 Influenza Types A,B Antigen (BRENT) - Final, Complete My Orders Orders - DUKE BHATIA L DO Cbc No Diff (12/03/19 15:24) Comprehensive Metabolic Panel (12/03/19 15:24) Lipase (12/03/19 15:24) Ua Culture If Indicated (12/03/19 15:24) Influenza A And B Antigens (12/03/19 15:24) Acute Abd Series (12/03/19 15:24) Ed Iv/Invasive Line Start (12/03/19 15:24) Ns Iv 1000 Ml (Sodium Chloride 0.9%) (12/03/19 15:24) Ondansetron Injection (Zofran Injectio (12/03/19 15:30) Famotidine Injection (Pepcid Injection) (12/03/19 15:24) Potassium Chloride (Tablet) (K Dur Table (12/03/19 16:15) Medications Given in ED Current Medications Medications Dose Ordered Sig/Jason Route Start Time Stop Time Status Last Admin Dose Admin Ondansetron HCl 4 mg ONCE ONCE IVP 12/03/19 15:30 12/03/19 15:31 DC 12/03/19 15:31 4 MG Vital Signs/I&O 12/03/19 15:23 Temp 36.6 Pulse 102 Resp 18 B/P (MAP) 102/71 (81) Pulse Ox 94 O2 Delivery Room Air Departure Impression Primary Impression: Viral gastroenteritis Disposition: HOME, SELF-CARE Condition: Stable Departure-Patient Inst. Referrals: [facility] ([facility]P) Primary Care Physician GENOVEVA BROWN APRN (Family) Primary Care Physician Patient Instructions: Viral Gastroenteritis, Adult (DC), Viral Syndrome (DC) Add. Discharge Instructions: Please follow CBC recommendations for self quarantining for 14 days. Please refrain from unnecessary activity in the community. Aryan as needed for nausea Take a potassium pill daily Follow-up with her primary care provider by phone call and to 3 days to determine next appointment Emergency department focuses on treating and ruling out life-threatening diseases. Whenever possible, a diagnosis is given. However, most patients are given an impression based on their history, physical exam, and workup during your brief time in the ER. Information about probable diagnosis and other educational material has been provided. Please take the time to read and understand this information. It is very important that you follow up with a physician as discussed during the visit today. Failure to adhere to your follow-up instructions may lead to severe disability, injury, or so please make sure to keep your appointments or o btain one as requested. Please keep in mind the emergency department is not designed to your primary care or "family doctor" and nonurgent issues are best evaluated by an outpatient physician All discharge instructions reviewed with patient and/or family. Voiced understanding. Scripts Potassium Chloride (Potassium Chloride) 20 Meq Tab.er.prt 20 MEQ PO DAILY, #30 CAP Prov: DUKE BHATIA DO 12/03/19 Ondansetron (Ondansetron Odt) 4 Mg Tab.rapdis 4 MG PO Q6H PRN for NAUSEA/VOMITING, #20 TAB 0 Refills Prov: DUKE BHATIA DO 12/03/19 DUKE BHATIA DO Dec 03, 2019 15:23
[2019-12-03] MEDS ORDERED: FAMOTIDINE 20MG/2ML IV (PEPCID) IV STA (15:24)
[2019-12-03] MEDS ORDERED: NS IV 1000 ML 1,000 ML IV SCH (15:24)
[2019-12-03] MEDS ORDERED: ONDANSETRON 4 MG/2 ML (SDV) Z0FRAN IVP ONE (15:30)
[2019-12-03 15:37] LABS: HEMOGLOBIN 16.5 G/DL (11.5-16.0); MEAN PLATELET VOLUME 9.7 FL (7.4-10.4); RED CELL DISTRIBUTION WIDTH 13.2 % (10.0-14.5); WHITE BLOOD COUNT 15.9 10^3/uL (4.3-11.0)
[2019-12-03 15:47] LABS: CLARITY,URINE CLEAR; COLOR,URINE YELLOW
[2019-12-03 15:48] LABS: BACTERIA,URINE NEGATIVE /HPF; BILIRUBIN,URINE NEGATIVE (NEGATIVE); GLUCOSE, URINE (UA) NEGATIVE (NEGATIVE); KETONES,URINE NEGATIVE (NEGATIVE); LEUKOCYTE ESTERASE ,URINE NEGATIVE (NEGATIVE); NITRITE,URINE NEGATIVE (NEGATIVE); PROTEIN,URINE NEGATIVE (NEGATIVE); RBC,URINE RARE /HPF; WBC,URINE RARE /HPF
[2019-12-03 15:58] LABS: ALANINE AMINOTRANSFERASE 17 U/L (0-55); ALBUMIN 4.7 GM/DL (3.2-4.5); ALKALINE PHOSPHATASE 118 U/L (40-136); BILIRUBIN,TOTAL 0.5 MG/DL (0.1-1.0); BUN/CREATININE RATIO 9; CALCIUM 10.2 MG/DL (8.5-10.1); CARBON DIOXIDE 25 MMOL/L (21-32); CHLORIDE 85 MMOL/L (98-107); CREATININE SERUM 1.58 MG/DL (0.60-1.30); GFR ESTIMATED 35; GLUCOSE 114 MG/DL (70-105); LIPASE 36 U/L (8-78); POTASSIUM 2.7 MMOL/L (3.6-5.0); SODIUM 135 MMOL/L (135-145); TOTAL PROTEIN 8.7 GM/DL (6.4-8.2)
--- NOTE | 2019-12-03 16:07 | Diagnostic Imaging Report ---
INDICATION: Nausea and emesis. EXAMINATION: Supine and upright views of the abdomen were obtained with a single view of chest. COMPARISON: Previous chest x-ray of 06/03/2019. Heart size and pulmonary vascularity are within normal limits. There is no evidence of an acute abnormality. Old left rib fracture is noted. Bowel gas pattern is unremarkable. There are punctate calcifications projecting over the kidneys, bilaterally. There are numerous calcified phleboliths seen in the pelvis, bilaterally, as well. No bowel obstruction is identified. There is aortoiliac atherosclerotic calcification. Gallbladder fossa contains surgical clips. IMPRESSION: Bilateral punctate renal calcifications compatible with nephrolithiasis. Clinical correlation with regard to possible stone passage would be useful. Otherwise, no acute abnormality is identified. Dictated by: Dictated on workstation # [id number]
[2019-12-03] MEDS ORDERED: KCL 20 MEQ TAB (K-DUR) PO ONE (16:15)
[2019-12-03] MEDS ORDERED: ONDA4TAB11 PO (16:16)
[2019-12-03] MEDS ORDERED: POTA20TA15 PO (16:16)
[2019-12-03 16:29] VITALS: BP 115/64
--- OUTSIDE RECORDS SUMMARY | 2019-12-03 19:51 | XMS REPORT ---
Author Author Trixie BROWN [facility] Address [address] [place] [address] Care Team Providers Care Town Clerk Name Role Phone GENOVEVA BROWN Unavailable PROBLEMS Type Condition ICD9-CM Code [id number] Code Onset Dates Condition S tatus SNOMED Code Problem Essential hypertension I10 Active 23015030 Problem COPD mixed type J44.9 Active 1364 5005 Problem Other chronic pain G89.29 Active 8 4339538 Problem Gastroesophageal reflux disease without esophagitis K21.9 Active 392548837 Problem Insomnia, unspecified type G47.00 Act moy 886616573 Problem Depression with anxiety F41.8 Active 16966278 Problem Dehydration E86.0 Active 68973454 Problem Mental retardation F79 Active 2 32802627 Problem Hyperlipidemia, unspecified hyperlipidemia type E7 8.5 Active 68015233 Problem Neuropathy of both feet G57.93 Active 120547805 Problem Lumbago with sciatica, left side M54.42 Active 871836025 Problem Lumbago with sciatica, right side M54.41 Active [id number] ALLERGIES No Information ENCOUNTERS Encounter Location Date Diagnosis [address] [place] [address] Jul, [address] [place] [address] Jun, Depression with anxiety F41. 8 [address] [place] [address] May, Essential hypertension I10 a nd Depression with anxiety F41.[address] [place] [address] May, [address] [place] [address] May, [facility] [address] [place] [address] May, [facility] [address] [place] [address] May, [facility] [address] [place] [address] May, Diarrhea, unspecified type R 19.7 [facility] [address] [place] [address] May, Depression with anxiety F41. [address] [place] [address] May, Orthostatic hypotension I95. 1 ; Depression with anxiety F41.8 ; Dehydration E86.0 ; Concussion without loss of consciousness, subsequent encounter S06.0X0D and COPD mixed type J44.9 [facility] [place] [address] [place] [address] May, [facility] [address] [facility] [place] [address] May, [facility] [address] [place] [address] May, Lumbago with sciatica, right side M54.41 [facility] [address] [place] [address] May, [address] [place] [address] May, Depression with anxiety F41. 8 [facility] [address] [place] [address] Apr, [facility] [address] [place] [address] Apr, [facility] [address] [place] [address] Apr, [facility] [address] [facility] [place] [address] Apr, Depression with anxiety F41. 8 and Insomnia, unspecified type G47.00 [facility] [address] [place] [address] Apr, [facility] [address] [place] [address] Apr, [facility] [address] [facility] [place] [address] Mar, [facility] [address] [place] [address] Mar, [facility] [address] [place] [address] Mar, Hyperlipidemia, unspecified hyperlipidemia type E78.5 [facility] [address] [place] [address] Mar, Insomnia, unspecified type G 47.00 [facility] [address] [place] [address] Mar, [facility] [address] [place] [address] Mar, Depression with anxiety F41. 8 [facility] [address] [place] [address] Mar, Acute swimmer''s ear of left side H60.332 ; High risk medications (not anticoagulants) long-term use Z79.899 and Depression with anxiety F41.8 [facility] [place] [address] Mar, [facility] [address] [place] [address] Mar, [facility] [address] [place] [address] Mar, [facility] [address] [place] [address] Mar, [facility] [place] [address] [place] [address] Mar, Diarrhea, unspecified type R 19.7 [facility] [place] [address] [place] [address] Feb, [facility] [address] [place] [address] Feb, Depression with anxiety F41. 8 and Lumbago with sciatica, left side M54.42 [facility] [address] [place] [address] Feb, [facility] [place] [address] [place] [address] Feb, Insomnia, unspecified type G 47.00 [facility] [address] [place] [address] Feb, [facility] [address] [place] [address] Feb, Lumbago with sciatica, left side M54.42 [facility] [address] [place] [address] Feb, Depression with anxiety F41. 8 [facility] [place] [address] [place] [address] January, Anxiety with depression F41. 8 [facility] [place] [address] [place] [address] January, [facility] [place] [address] [place] [address] January, [facility] [address] [place] [address] January, Depression with anxiety F41. 8 ; Lumbago with sciatica, left side M54.42 ; Diarrhea, unspecified type R19.7 and Hematuria, unspecified type R31.9 [facility] [address] [place] [address] January, Depression with anxiety F41. 8 [facility] [address] [place] [address] January, [facility] [address] [place] [address] January, Lumbago with sciatica, left side M54.42 [facility] [address] [place] [address] Dec, Lumbago with sciatica, left side M54.42 [facility] [address] [place] [address] Dec, Insomnia, unspecified type G 47.00 and Depression with anxiety F41.8 [address] [place] [address] Dec, [facility] [address] [place] [address] Dec, [facility] [address] [place] [address] Dec, Lumbago with sciatica, left side M54.42 [facility] [address] [address] [place] [address] Nov, Lumbago with sciatica, left side M54.42 [facility] [address] [facility] [place] [address] Nov, Depression with anxiety F41.8 [facility] [address] [place] [address] Nov, Depression with anxiety F41. 8 [facility] [address] [facility] [place] [address] Nov, [facility] [address] [place] [address] Nov, [facility] [address] [place] [address] Nov, Depression with anxiety F41. 8 ; Hyperlipidemia, unspecified hyperlipidemia type E78.5 and Essential hypertension I10 [facility] [address] [place] [address] Nov, [facility] [place] [address] [place] [address] Nov, Essential hypertension I10 [facility] [address] [place] [address] Nov, [facility] [address] [place] [address] Nov, Essential hypertension I10 [facility] [place] [address] [place] [address] Oct, [facility] [address] [facility] [place] [address] Oct, [facility] [address] [place] [address] Oct, [facility] [address] [facility] [place] [address] Oct, Neuropathy of both feet G57.93 [facility] [address] [facility] [place] [address] Oct, [facility] [place] [address] [place] [address] Oct, [facility] [address] [place] [address] Oct, Essential hypertension I10 ; Anxiety with [...] Gastroesophageal reflux disease without esophagitis K21.9 [facility] [address] [facility] [id number] [place] [address] Jul, Depression with anxiety F41.8 ; COPD mix ed type J44.9 ; Essential hypertension I10 ; Hyperlipidemia, unspecified hyperlipidemia type E78.5 ; Pain in thoracic spine M54.6 and Other chronic pain G89.29 [facility] [address] [place] [id number] [place] [address] Apr, [facility] [address] [place] [address] [place] [address] Mar, COPD mixed type J44.9 ; Depression with anxiety F41.8 ; Gastroesophageal reflux disease without esophagitis K21.9 ; Essential hypertension I10 and Mental retardation F79 [facility] [address] [place] [address] Aug, 17 IMMUNIZATIONS No Known Immunizations SOCIAL HISTORY Never Assessed REASON FOR VISIT med refill PLAN OF CARE VITAL SIGNS MEDICATIONS Medication Instructions Dosage Frequency Start Date End Date Duration S tatus Ultram 50 MG Orally 4 times a day 1 tablet as needed 6h 07 days Active RESULTS No Results PROCEDURES No Known procedures INSTRUCTIONS MEDICATIONS ADMINISTERED No Known Medications MEDICAL (GENERAL) HISTORY Type Description Date Medical History patient poor historian Medical History HTN Medical History anxiety and depression Medical History Chronic obstructive pulmonary disease, u nspecified Surgical History hysterectomy Surgical History Surgical History colonoscopy with possible polyps, repeat 1-1/2 years from now 2016 Hospitalization History surgeries/childbirth Hospitalization History chest pain
--- OUTSIDE RECORDS SUMMARY | 2019-12-03 19:51 | XMS REPORT | Continuity of Care Document ---
Author Organization Unknown Address Unknown Phone Unavailable Allergies Active Description Code Type Severity Reaction Onset Reported/Identified Relationship to Patient Clinical Status Yes diphenhydramine [id number] D rug Allergy Unknown eyes water 02/12/2019 Yes iodine [id number] Drug Allergy Unknown N/A 02/12/2019 Yes No Known Drug Allergies [id number] Drug Allergy Unknown N/A 02/12/2019 Medications There is no data. Problems Date Dx Coded Attending Type Code Diagnosis Diagnosed By 02/12/2019 SKYLAR ROSE MD Ot F17.200 NICOTINE DEPENDENCE, UNSPECIFIED, UNCOMP 02/12/2019 SKYLAR ROSE MD Ot L02.811 CUTANEOUS ABSCESS OF HEAD [ANY PART, EXC 02/12/2019 SKYLAR ROSE MD Ot W22.09XA STRIKING AGAINST OTHER STATIONARY OBJECT 02/12/2019 SKYLAR ROSE MD Ot Z88. 8 ALLERGY STATUS TO OTH DRUG/MEDS/BIOL SUB 02/12/2019 SKYLAR ROSE MD Ot Z91.041 RADIOGRAPHIC DYE ALLERGY STATUS 02/15/2019 SKYLAR ROSE MD Ot F17.200 NICOTINE DEPENDENCE, UNSPECIFIED, UNCOMP 02/15/2019 SKYLAR ROSE MD Ot L02.811 CUTANEOUS ABSCESS OF HEAD [ANY PART, EXC 02/15/2019 SKYLAR ROSE MD Ot W22.09XA STRIKING AGAINST OTHER STATIONARY OBJECT 02/15/2019 SKYLAR ROSE MD Ot Z88. 8 ALLERGY STATUS TO OTH DRUG/MEDS/BIOL SUB 02/15/2019 SKYLAR ROSE MD Ot Z91.041 RADIOGRAPHIC DYE ALLERGY STATUS 06/05/2019 DORIAN ALEJANDRA MD Ot E78.0 0 PURE HYPERCHOLESTEROLEMIA, UNSPECIFIED 06/05/2019 DORIAN ALEJANDRA MD Ot E83.4 2 HYPOMAGNESEMIA 06/05/2019 DORIAN ALEJANDRA MD Ot E86.0 DEHYDRATION 06/05/2019 DORIAN ALEJANDRA MD Ot F17.2 10 NICOTINE DEPENDENCE, CIGARETTES, UNCOMPL 06/05/2019 DORIAN ALEJANDRA MD, Ot G62.9 POLYNEUROPATHY, UNSPECIFIED 06/05/2019 DORIAN ALEJANDRA MD, Ot R51 HEADACHE 06/05/2019 DORIAN ALEJANDRA MD, Ot S06.0X9A CONCUSSION W LOSS OF CONSCIOUSNESS OF UN 06/05/2019 DORIAN ALEJANDRA MD, Ot W19.XXXA UNSPECIFIED FALL, INITIAL ENCOUNTER 06/05/2019 DORIAN ALEJANDRA MD, Ot W22.8XXA STRIKING AGAINST OR STRUCK BY OTHER OBJE 06/05/2019 DORIAN ALEJANDRA MD, Ot Z88.8 ALLERGY STATUS TO [facility] DRUG/MEDS/BIOL SUB 06/05/2019 DORIAN ALEJANDRA MD, Ot Z90.7 10 ACQUIRED ABSENCE OF BOTH CERVIX AND UTER Procedures There is no data. Results Test Result Range LIPID PANEL - 11/25/18 09:00 CHOLESTEROL, TOTAL 276 mg/dL <200 HDL CHOLESTEROL 55 mg/dL >50 TRIGLYCERIDES 216 mg/dL <150 LDL-CHOLESTEROL 180 mg/dL (calc) NRG CHOL/HDLC RATIO 5.0 (calc) <5.0 NON HDL CHOLESTEROL 221 mg/dL (calc) <13 0 CMP - 11/25/18 09:00 GLUCOSE 107 mg/dL 65-99 UREA NITROGEN (BUN) 9 mg/dL 7-25 CREATININE 0.54 mg/dL 0.50-1.10 eGFR NON-AFR. CZECH 111 mL/min/1.73m2 > OR = 60 eGFR 128 mL/min/1.73m2 > OR = 60 BUN/CREATININE RATIO NOT APPLICABLE (calc) 6-22 SODIUM 140 mmol/L 135-146 POTASSIUM 3.6 mmol/L 3.5-5.3 CHLORIDE 103 mmol/L 98-110 CARBON DIOXIDE 29 mmol/L 20-32 CALCIUM 9.6 mg/dL 8.6-10.2 PROTEIN, TOTAL 6.8 g/dL 6.1-8.1 ALBUMIN 4.2 g/dL 3.6-5.1 GLOBULIN 2.6 g/dL (calc) 1.9-3.7 ALBUMIN/GLOBULIN RATIO 1.6 (calc) 1.0-2. 5 BILIRUBIN, TOTAL 0.3 mg/dL 0.2-1.2 ALKALINE PHOSPHATASE 105 U/L 33-115 AST 16 U/L 10-35 ALT 17 U/L 6-29 CBC w/MANUAL DIFF - 11/25/18 09:00 WHITE BLOOD CELL COUNT 7.6 Thousand/uL 3 .8-10.8 RED BLOOD CELL COUNT 4.58 Million/uL 3.8 0-5.10 HEMOGLOBIN 14.0 g/dL 11.7-15.5 HEMATOCRIT 41.9 % 35.0-45.0 MCV 91.5 fL 80.0-100.0 MCH 30.6 pg 27.0-33.0 MCHC 33.4 g/dL 32.0-36.0 RDW 12.9 % 11.0-15.0 PLATELET COUNT 195 Thousand/uL 140-400 MPV 10.4 fL 7.5-12.5 ABSOLUTE NEUTROPHILS 4704 cells/uL 1500- 7800 ABSOLUTE MONOCYTES 388 cells/uL 200-950 ABSOLUTE EOSINOPHILS 160 cells/uL 15-500 ABSOLUTE BASOPHILS 76 cells/uL 0-200 NEUTROPHILS 61.9 % NRG LYMPHOCYTES 26.8 % NRG MONOCYTES 5.1 % NRG EOSINOPHILS 2.1 % NRG BASOPHILS 1.0 % NRG ABSOLUTE BAND NEUTROPHILS 236 cells/uL 0 -750 ABSOLUTE LYMPHOCYTES 2037 cells/uL 850-3 900 BAND NEUTROPHILS 3.1 % NRG PLATELET ESTIMATION ADEQUATE ADEQUATE COMMENT(S) NRG PDM - GABAPENTIN - 03/13/19 09:14 Prescribed Drug 1 Gabapentin NRG COMMENT NRG Prescribed Drug 2 Tramadol NRG Prescribed Drug 3 Clonazepam NRG Gabapentin 31692 ng/mL <1000 medMATCH Gabapentin CONSISTENT NRG PDM - TRAMADOL - 03/13/19 09:14 Prescribed Drug 1 Gabapentin NRG COMMENT NRG Desmethyltramadol NEGATIVE ng/mL <100 medMATCH Desmethyltram INCONSISTENT NRG Tramadol NEGATIVE ng/mL <100 medMATCH Tramadol INCONSISTENT NRG Prescribed Drug 2 Tramadol NRG Prescribed Drug 3 Clonazepam NRG PDM - TRAMADOL - 04/02/19 10:34 Prescribed Drug 1 Tramadol NRG COMMENT NRG Desmethyltramadol 3904 ng/mL <100 medMATCH Desmethyltram CONSISTENT NRG Tramadol >67079 ng/mL <100 medMATCH Tramadol CONSISTENT NRG Complete blood count (CBC) with automate d white blood cell (WBC) differential - 06/03/19 19:50 Blood leukocytes automated count (number/volume) 9.2 10*3/uL 4.3-11.0 Blood erythrocytes automated count (number/volume) 3.81 10*6/uL 4.35-5.85 Venous blood hemoglobin measurement (mass/volume) 11.8 g/dL 11.5-16.0 Blood hematocrit (volume fraction) 36 % 35-52 Automated erythrocyte mean corpuscular volume 94 [ foz_us] 80-99 Automated erythrocyte mean corpuscular h emoglobin (mass per erythrocyte) 31 pg 25-34 Automated erythrocyte mean corpuscular h emoglobin concentration measurement (mass/volume) 33 g/dL 32-36 Automated erythrocyte distribution width ratio 13. 2 % 10.0- 14.5 Automated blood platelet count (count/volume) 238 10*3/uL 130-400 Automated blood platelet mean volume measurement 10.2 [foz_us] 7.4-10.4 Automated blood neutrophils/100 leukocytes 56 % 42-75 Automated blood lymphocytes/100 leukocytes 35 % 12-44 Blood monocytes/100 leukocytes 6 % 0-12 Automated blood eosinophils/100 leukocytes 2 % 0-10 Automated blood basophils/100 leukocytes 1 % 0-10 Blood neutrophils automated count (number/volume) 5.1 10*3 1.8-7.8 Blood lymphocytes automated count (number/volume) 3.2 10*3 1.0-4.0 Blood monocytes automated count (number/volume) 0. 6 10*3 0.0-1.0 Automated eosinophil count 0.2 10*3/uL 0 .0-0.3 Automated blood basophil count (count/volume) 0.1 10*3/uL 0.0-0.1 PT panel in platelet poor plasma by coag ulation assay - 06/03/19 19:50 Prothrombin time (PT) in platelet poor plasma by coagu lation assay 13.7 s 12.2-14.7 INR in platelet poor plasma or blood by coagulation as say 1.0 0.8-1.4 Activated partial thromboplastin time (a PTT) in platelet poor plasma bycoagulation assay - 06/03/19 19:50 Activated partial thromboplastin time (a PTT) in platelet poor plasma bycoagulation assay 26 s 24-35 Comprehensive metabolic panel - 06/03/19 19:50 Serum or plasma sodium measurement (moles/volume) 138 mmol/L 135-145 Serum or plasma potassium measurement (moles/volume) 3.5 mmol/L 3.6-5.0 Serum or plasma chloride measurement (moles/volume) 97 mmol/L 98-107 Carbon dioxide 28 mmol/L 21-32 Serum or plasma anion gap determination (moles/volume) 13 mmol/L 5-14 Serum or plasma urea nitrogen measurement (mass/volume ) 6 mg/dL 7-18 Serum or plasma creatinine measurement (mass/volume) 0.73 mg/dL 0.60-1.30 Serum or plasma urea nitrogen/creatinine mass ratio 8 NRG Serum or plasma creatinine measurement w ith calculation of estimated glomerular filtration rate > NRG Serum or plasma glucose measurement (mass/volume) 104 mg/dL 70-105 Serum or plasma calcium measurement (mass/volume) 8.5 mg/dL 8.5-10.1 Serum or plasma total bilirubin measurement (mass/volu me) 0.3 mg/dL 0.1-1.0 Serum or plasma alkaline phosphatase zari surement (enzymatic activity/volume) 152 U/L 40-136 Serum or plasma aspartate aminotransfera se measurement (enzymatic activity/volume) 40 U/L 5-34 Serum or plasma alanine aminotransferase measurement (enzymatic activity/volume) 41 U/L 0-55 Serum or plasma protein measurement (mass/volume) 6.3 g/dL 6.4-8.2 Serum or plasma albumin measurement (mass/volume) 3.6 g/dL 3.2-4.5 CALCIUM CORRECTED 8.8 mg/dL 8.5-10.1 Magnesium - 06/03/19 19:50 Magnesium 1.4 mg/dL 1.6-2.4 Serum or plasma troponin i.cardiac measu rement (mass/volume) - 06/03/19 19:50 Serum or plasma troponin i.cardiac measurement (mass/v olume) < ng/mL <0.30 PROBNP FS - 06/03/19 19:50 PROBNP FS 250.0 pg/mL <75.0 Influenza virus A and B antigen detectio n - 12/03/19 15:15 FLU RESULT NEGATIVE FOR INFLUENZA A AND B ANTIGENS BY IA NR Automated blood complete blood count (he mogram) panel - 12/03/19 15:18 Blood leukocytes automated count (number/volume) 15.9 10*3/uL 4.3-11.0 Blood erythrocytes automated count (number/volume) 5.34 10*6/uL 4.35-5.85 Venous blood hemoglobin measurement (mass/volume) 16.5 g/dL 11.5-16.0 Blood hematocrit (volume fraction) 48 % 35-52 Automated erythrocyte mean corpuscular volume 89 [ foz_us] 80-99 Automated erythrocyte mean corpuscular h emoglobin (mass per erythrocyte) 31 pg 25-34 Automated erythrocyte mean corpuscular h emoglobin concentration measurement (mass/volume) 35 g/dL 32-36 Automated erythrocyte distribution width ratio 13. 2 % 10.0- 14.5 Automated blood platelet count (count/volume) 390 10*3/uL 130-400 Automated blood platelet mean volume measurement 9.7 [foz_us] 7.4-10.4 Comprehensive metabolic panel - 12/03/19 15:18 Serum or plasma sodium measurement (moles/volume) 135 mmol/L 135-145 Serum or plasma potassium measurement (moles/volume) 2.7 mmol/L 3.6-5.0 Serum or plasma chloride measurement (moles/volume) 85 mmol/L 98-107 Carbon dioxide 25 mmol/L 21-32 Serum or plasma anion gap determination (moles/volume) 25 mmol/L 5-14 Serum or plasma urea nitrogen measurement (mass/volume ) 14 mg/dL 7-18 Serum or plasma creatinine measurement (mass/volume) 1.58 mg/dL 0.60-1.30 Serum or plasma urea nitrogen/creatinine mass ratio 9 NRG Serum or plasma creatinine measurement w ith calculation of estimated glomerular filtration rate 35 NRG Serum or plasma glucose measurement (mass/volume) 114 mg/dL 70-105 Serum or plasma calcium measurement (mass/volume) 10.2 mg/dL 8.5-10.1 Serum or plasma total bilirubin measurement (mass/volu me) 0.5 mg/dL 0.1-1.0 Serum or plasma alkaline phosphatase zari surement (enzymatic activity/volume) 118 U/L 40-136 Serum or plasma aspartate aminotransfera se measurement (enzymatic activity/volume) 16 U/L 5-34 Serum or plasma alanine aminotransferase measurement (enzymatic activity/volume) 17 U/L 0-55 Serum or plasma protein measurement (mass/volume) 8.7 g/dL 6.4-8.2 Serum or plasma albumin measurement (mass/volume) 4.7 g/dL 3.2-4.5 Lipase - 12/03/19 15:18 Lipase 36 U/L 8-78 Complete urinalysis with reflex to cultu re - 12/03/19 15:32 Urine color determination YELLOW NRG Urine clarity determination CLEAR NR G Urine pH measurement by test strip 6.0 5-9 Specific gravity of urine by test strip 1.010 1.016-1.022 Urine protein assay by test strip, semi-quantitative NEGATIVE NEGATIVE Urine glucose detection by automated test strip NE GATIVE NEGATIVE Erythrocytes detection in urine sediment by light micr oscopy NEGATIVE NEGATIVE Urine ketones detection by automated test strip NE GATIVE NEGATIVE Urine nitrite detection by test strip NEGATIVE NEGATIVE Urine total bilirubin detection by test strip NEGA TIVE NEGATIVE Urine urobilinogen measurement by automated test strip (mass/volume) 0.2 mg/dL < = 1.0 Urine leukocyte esterase detection by dipstick NEG ATIVE NEGATIVE Automated urine sediment erythrocyte cou nt by microscopy (number/high power field) RARE NRG Automated urine sediment leukocyte count by microscopy (number/high power field) RARE NRG Bacteria detection in urine sediment by light microsco py NEGATIVE NRG Squamous epithelial cells detection in u rine sediment by light microscopy 10-25 NRG Crystals detection in urine sediment by light microsco py NONE NRG Casts detection in urine sediment by light microscopy NONE NRG Mucus detection in urine sediment by light microscopy NONE NRG Complete urinalysis with reflex to culture NO NRG Encounters ACCT No. Visit Date/Time Discharge Status Pt. Type Provider Facility Loc./Unit Complaint [id number] 06/16/2019 10:00:00 06/16/2019 23:59:5 9 [facility] Outpatient [facility]EV[facility]OWN [facility] [id number] 04/02/2019 09:20:00 Document Registration [id number] 03/13/2019 09:00:00 Document Registration [id number] 11/25/2018 10:20:00 Document Registration [id number] 12/03/2019 15:16:00 020 16:27:00 DIS Emergency DUKE BHATIA DO [facility] ER FS COUGHING BLOOD [id number] 06/03/2019 19:02:00 019 21:52:00 DIS Outpatient JUSTYN WALSH, DORIAN Peng [facility] ER FS WEAK,HEADACHE, BUMPS ON HEAD, CHEST PAIN [id number] 02/12/2019 12:11:00 019 12:46:00 DIS Emergency ROSE WALSH, SKYLAR Flower [facility] ER FS HEAD INJ
== END 2019-12-03 16:27 | disposition home or self-care (01) ==
LOC: EDUNIT# 15:14 → ER FS 15:16
DX: A08.4 Viral intestinal infection, unspecified (principal); Z88.8 Allergy status to other drugs, medicaments and biological substances
CPT/HCPCS: 36415; 74022; 80053; 81000; 83690; 85027; 87804

== ENCOUNTER 2020-03-22 15:34 | Emergency (ER) | payer MEDICAID ==
[~2020-03-22] VITALS: Ht 157.5 cm; Wt 71.4 kg
[~2020-03-22 15:34] MED LIST changes: +ONDA4TAB11 PO; +POTA20TA15 PO
[2020-03-22 15:54] LABS: HEMATOCRIT 40 % (35-52); HEMOGLOBIN 13.9 G/DL (11.5-16.0); MEAN CORPUSCULAR HEMOGLOBIN 33 PG (25-34); WHITE BLOOD COUNT 16.2 10^3/uL (4.3-11.0)
[2020-03-22 15:55] LABS: BASOPHILS # (AUTO) 0.1 10^3/uL (0.0-0.1); BASOPHILS % (AUTO) 0 % (0-10); EOSINOPHILS # (AUTO) 0.1 10^3/uL (0.0-0.3); EOSINOPHILS % (AUTO) 0 % (0-10); LYMPHOCYTES % (AUTO) 18 % (12-44); MEAN CORPUSCULAR HGB CONC 35 G/DL (32-36); MEAN CORPUSCULAR VOLUME 93 FL (80-99); MEAN PLATELET VOLUME 10.6 FL (7.4-10.4); MONOCYTES % (AUTO) 6 % (0-12); NEUTROPHILS % (AUTO) 74 % (42-75); PLATELET COUNT 391 10^3/uL (130-400); RED CELL DISTRIBUTION WIDTH 14.4 % (10.0-14.5)
[2020-03-22 16:10] LABS: BAND NEUTROPHILS 1 %; BASOPHILS % (MANUAL) 0 %; EOSINOPHILS % (MANUAL) 0 %; LYMPHOCYTES % (MANUAL) 22 %; MONOCYTES % (MANUAL) 6 %; NEUTROPHILS % (MANUAL) 71 %; RBC MORPH NORMAL
[2020-03-22] MEDS ORDERED: NS IV 1000 ML 1,000 ML ONE (16:10)
[2020-03-22 16:20] LABS: INR 1.2 (0.8-1.4); PROTHROMBIN TIME PATIENT 15.6 SEC (12.2-14.7)
[2020-03-22] MEDS ORDERED: NS IV 1000 ML 1,000 ML IV SCH ×2 (16:30→17:45)
[2020-03-22 16:41] LABS: ALANINE AMINOTRANSFERASE 24 U/L (0-55); ALBUMIN 4.3 GM/DL (3.2-4.5); ALKALINE PHOSPHATASE 83 U/L (40-136); BILIRUBIN,TOTAL 0.7 MG/DL (0.1-1.0); BUN/CREATININE RATIO 9; CALCIUM 9.2 MG/DL (8.5-10.1); CARBON DIOXIDE 21 MMOL/L (21-32); CREATININE SERUM 6.61 MG/DL (0.60-1.30); GFR ESTIMATED 7; GLUCOSE 120 MG/DL (70-105); TOTAL PROTEIN 7.8 GM/DL (6.4-8.2)
--- NOTE | 2020-03-22 16:41 | ED Neurological Problem ---
General Chief Complaint: Altered Mental Status Stated Complaint: STROKE SYMPTOMS Nursing Triage Note: Patient reports she has not been out of bed in 3-4 days and has not been eating and drinking because she has been depressed. Patient's mother states she checked on patient today and that patient was not "acting right", so she brought patient to the ED for evaluation. Mother is unsure of last known normal time. Patient is oriented to person, time, and situation. Patient also states that she did not have good balance and was very weak when she attempted to walk today. Nursing Sepsis Screen: No Definite Risk Source: patient Exam Limitations: clinical condition History of Present Illness Date Seen by Provider: Mar 22, 2020 Time Seen by Provider: 15:33 Initial Comments The patient is a 50-year-old female brought in for altered mental status. The patient's mother brought her to the emergency Department today and states that she checked on the patient because she had not been out of bed in the last 3-4 days and apparently had not been eating or drinking because she had been feeling depressed. When the patient's mother went to check on her 1500 today she found her altered. The patient is having difficulty speaking upon arrival and having difficulty moving her legs and arms. Timing/Duration: other (within the last 3-4 days) Severity: moderate Associated Symptoms: confusion Allergies and Home Medications Allergies Coded Allergies: iodine (Verified Allergy, Unknown, 02/12/19) diphenhydramine (Verified Adverse Reaction, Unknown, eyes water, 02/12/19) Home Medications Hydrocodone Bit/Acetaminophen 1 Tab Tab, 1 EACH PO Q6H PRN for PAIN-MODERATE Prescribed by: SKYLAR ROSE on 02/12/19 1233 Ondansetron 4 Mg Tab.rapdis, 4 MG PO Q6H PRN for NAUSEA/VOMITING Prescribed by: DUKE BHATIA on 12/03/19 1616 Potassium Chloride 20 Meq Tab.er.prt, 20 MEQ PO DAILY Prescribed by: DUKE BHATIA on 12/03/19 1616 Sulfamethoxazole/Trimethoprim 1 Each Tablet, 1 EACH PO BID Prescribed by: SKYLAR ROSE on 02/12/19 1233 Patient Home Medication List Home Medication List Reviewed: Yes Review of Systems Review of Systems Constitutional: no symptoms reported Eyes: No Symptoms Reported Ears, Nose, Mouth, Throat: no symptoms reported Respiratory: no symptoms reported Cardiovascular: no symptoms reported Gastrointestinal: no symptoms reported Genitourinary: no symptoms reported Musculoskeletal: no symptoms reported Skin: no symptoms reported Psychiatric/Neurological: Depressed (denies suicidal ideation), Other (confused, having difficulty moving all extremities on arrival) Endocrine: No Symptoms Reported Hematologic/Lymphatic: No Symptoms Reported All Other Systems Reviewed Negative Unless Noted: Yes Past Mltlhqz-Kznqwx-Yfcsaw Hx Past Med/Social Hx: Reviewed Nursing Past Med/Soc Hx Patient Social History Alcohol Use: Occasionally Uses Recreational Drug Use: Yes Drug of Choice: Recent marijuana use, history of meth use. Smoking Status: Current Everyday Smoker Type Used: Cigarettes 2nd Hand Smoke Exposure: No Recent Foreign Travel: No Contact w/Someone Who Travel: No Recent Infectious Disease Expo: No Recent Hopitalizations: No Physical Abuse: No Sexual Abuse: No Mistreated: No Fear: No Seasonal Allergies Seasonal Allergies: No Past Medical History Surgeries: Yes Section, Gallbladder, Hysterectomy Respiratory: Yes COPD Cardiac: Yes High Cholesterol Neurological: Yes Neuropathy, Stroke Genitourinary: No Gastrointestinal: No Musculoskeletal: Yes Chronic Back Pain Endocrine: No HEENT: No Cancer: No Psychosocial: No Integumentary: No Blood Disorders: No Physical Exam Vital Signs Vital Signs - First Documented 03/22/20 15:48 Temp 36.4 Pulse 77 Resp 12 B/P (MAP) 108/72 (84) Pulse Ox 93 O2 Delivery Room Air Capillary Refill : Less Than 3 Seconds Height, Weight, BMI Height: 5'2.00" Weight: 160lbs. oz. 72.852965jh; 28.00 BMI Method:Stated General Appearance: WD/WN, other (confused and having difficulty speaking upon arrival) HEENT: PERRL/EOMI, pharynx normal Neck: full range of motion, supple, normal inspection Respiratory: lungs clear, normal breath sounds, no respiratory distress, no accessory muscle use Cardiovascular: regular rate, rhythm, no edema, no JVD Gastrointestinal: normal bowel sounds, non tender, soft Extremities: non-tender, normal inspection, no pedal edema, no calf tenderness, normal capillary refill Neurologic/Psychiatric: summer intern II-XII nml as tested, alert, disoriented x 3 (disoriented to time upon arrival) Crainal Nerves: normal hearing, PERRL Skin: normal color, warm/dry Progress/Results/Core Measures Results/Orders Lab Results Laboratory Tests Test 03/22/20 15:46 7/6/20 15:56 03/22/20 16:27 Range/Units White Blood Count 16.2 H 4.3-11.0 10^3/uL Red Blood Count 4.27 L 4.35-5.85 10^6/uL Hemoglobin 13.9 11.5-16.0 G/DL Hematocrit 40 35-52 % Mean Corpuscular Volume 93 80-99 FL Mean Corpuscular Hemoglobin 33 25-34 PG Mean Corpuscular Hemoglobin Concent 35 32-36 G/DL Red Cell Distribution Width 14.4 10.0-14.5 % Platelet Count 391 130-400 10^3/uL Mean Platelet Volume 10.6 H 7.4-10.4 FL Neutrophils (%) (Auto) 74 42-75 % Lymphocytes (%) (Auto) 18 12-44 % Monocytes (%) (Auto) 6 0-12 % Eosinophils (%) (Auto) 0 0-10 % Basophils (%) (Auto) 0 0-10 % Neutrophils # (Auto) 12.0 H 1.8-7.8 X 10^3 Lymphocytes # (Auto) 3.0 1.0-4.0 X 10^3 Monocytes # (Auto) 1.0 0.0-1.0 X 10^3 Eosinophils # (Auto) 0.1 0.0-0.3 10^3/uL Basophils # (Auto) 0.1 0.0-0.1 10^3/uL Neutrophils % (Manual) 71 % Lymphocytes % (Manual) 22 % Monocytes % (Manual) 6 % Eosinophils % (Manual) 0 % Basophils % (Manual) 0 % Band Neutrophils 1 % Blood Morphology Comment NORMAL Prothrombin Time 15.6 H 12.2-14.7 SEC INR Comment 1.2 0.8-1.4 Activated Partial Thromboplast Time 26 24-35 SEC Sodium Level 133 L 135-145 MMOL/L Potassium Level 3.8 3.6-5.0 MMOL/L Chloride Level 89 L 98-107 MMOL/L Carbon Dioxide Level 21 21-32 MMOL/L Anion Gap 23 H 5-14 MMOL/L Blood Urea Nitrogen 58 H 7-18 MG/DL Creatinine 6.61 H 0.60-1.30 MG/DL Estimat Glomerular Filtration Rate 7 BUN/Creatinine Ratio 9 Glucose Level 120 H 70-105 MG/DL Calcium Level 9.2 8.5-10.1 MG/DL Corrected Calcium 9.0 8.5-10.1 MG/DL Total Bilirubin 0.7 0.1-1.0 MG/DL Aspartate Amino Transf (AST/SGOT) 26 5-34 U/L Alanine Aminotransferase (ALT/SGPT) 24 0-55 U/L Alkaline Phosphatase 83 40-136 U/L Troponin I < 0.30 <0.30 NG/ML Total Protein 7.8 6.4-8.2 GM/DL Albumin 4.3 3.2-4.5 GM/DL Glucometer 121 H 70-110 MG/DL Salicylates Level < 5.0 L 5.0-20.0 MG/DL Acetaminophen Level < 10 L 10-30 UG/ML Serum Alcohol < 10 <10 MG/DL My Orders Orders - MARCO QURESHI DO Cbc With Automated Diff (03/22/20 15:39) Protime With Inr (03/22/20 15:39) Partial Thromboplastin Time (03/22/20 15:39) Comprehensive Metabolic Panel (03/22/20 15:39) Troponin I Fs (03/22/20 15:39) Ua Culture If Indicated (03/22/20 15:39) Chest 1 View Ap/Pa Only (03/22/20 15:39) Ekg Tracing (03/22/20 15:39) Nothing By Mouth (03/22/20 Dinner) Accucheck Stat ONCE (03/22/20 15:39) Ed Iv/Invasive Line Start (03/22/20 15:39) Ed Iv/Invasive Line Start (03/22/20 15:39) Vital Signs Stroke Patient Q15M (03/22/20 15:39) Ct Head Wo-R/O Stroke (03/22/20 15:39) O2 (03/22/20 15:39) Intake & Output 06,14,22 (03/22/20 15:39) Monitor-Rhythm Ecg Trace Only (03/22/20 15:39) Dysphagia Screening Tool (03/22/20 15:39) Manual Differential (03/22/20 15:46) Ns Iv 1000 Ml (Sodium Chloride 0.9%) (03/22/20 16:10) Ns Iv 1000 Ml (Sodium Chloride 0.9%) (03/22/20 16:30) Alcohol (03/22/20 16:41) Drug Screen Stat (Urine) (03/22/20 16:41) Acetaminophen (03/22/20 16:41) Salicylate (03/22/20 16:41) Ns Iv 1000 Ml (Sodium Chloride 0.9%) (03/22/20 17:45) Vital Signs/I&O 03/22/20 15:48 Temp 36.4 Pulse 77 Resp 12 B/P (MAP) 108/72 (84) Pulse Ox 93 O2 Delivery Room Air Blood Pressure Mean: 84 FSBG Bedside Testing Finger Stick Blood Glucose: 121 Blood Glucose Action Taken: n/a Progress Progress Note : Progress Note @1730 - Pt's speech has improved significantly. Pt now moving extremities better, no focal deficit. @174 - Pt's family prefers [facility] in [facility]. Spoke with transfer line, they will call physician and call back. @1804 - Called for update, told physician had not even been paged yet as she was busy. @1811 - Dr. Rodriguez accepts the transfer to [facility] at this time. Diagnostic Imaging Diagonstic Imaging: CT Plain Films/CT/US/NM/MRI: head Comments [facility], [place] NAME: ANA CRISTINA CHERRY MED REC#: [id number] PT STATUS: REG ER : 1970 PHYSICIAN: MARCO QURESHI DO ADMIT DATE: 03/22/20/ER FS Draft Date of Exam:03/22/20 CT HEAD WO-R/O STROKE INDICATION: Slurred speech and confusion. TECHNIQUE: Multiple contiguous axial images were obtained through the brain without the use of intravenous contrast. Auto Exposure Controls were utilized during the CT exam to meet ALARA standards for radiation dose reduction. COMPARISON: 06/03/2019. There are no extra-axial fluid collections. No intracranial hemorrhage. No intracranial mass or mass effect. No midline shift. The ventricles are normal in size and position. There were no focal parenchymal abnormalities in the brain. Calvarial windows appear unremarkable. IMPRESSION: Negative noncontrast brain CT. Dictated on workstation # [id number] Dict: 03/22/20 1652 Trans: 03/22/20 1656 [facility] [id number] Interpreted by: SHWETHA BRANNON MD Electronically signed by: Critical Care Note Critical Care Start Time: 17:00 Stop Time: 18:00 Total Time (minutes) 60 Progress Prevention of acute renal failure, response to treatment, multiple examinations, interpretation of lab results, arranging transfer, discussion with consultants, discussion with family Departure Impression Primary Impression: Acute kidney failure Additional Impressions: Altered mental status Dehydration Disposition: XFER SHT-TRM HOSP Condition: Stable Admissions Decision to Admit Reason: Admit from ER (General) Transfer Transfer Reason: Exceeds level of care Time Spoke to Accepting Phy: 18:[address] Rodriguez accepts the admission at [facility] Transfer Time: 18:20 Transfer Facility: [facility] Method of Transfer: EMS Departure-Patient Inst. Referrals: [facility]/ELIZABETH (PCP) Primary Care Physician GENOVEVA BROWN APRN (Family) Primary Care Physician MARCO QURESHI DO Mar 22, 2020 16:41
--- NOTE | 2020-03-22 16:55 | Diagnostic Imaging Report ---
Indication: Slurred speech and confusion Portable chest 4:42 PM Heart size and pulmonary vascularity are normal. There is a small nodular lesion at the right lung apex measuring 8 mm in diameter that appears increased compared to exam 06/03/2019. IMPRESSION: Possible developing pulmonary nodule right apex. Further evaluation with CT recommended. Dictated by: Dictated on workstation # [id number]
--- NOTE | 2020-03-22 16:56 | Diagnostic Imaging Report ---
INDICATION: Slurred speech and confusion. TECHNIQUE: Multiple contiguous axial images were obtained through the brain without the use of intravenous contrast. Auto Exposure Controls were utilized during the CT exam to meet ALARA standards for radiation dose reduction. COMPARISON: 06/03/2019. There are no extra-axial fluid collections. No intracranial hemorrhage. No intracranial mass or mass effect. No midline shift. The ventricles are normal in size and position. There were no focal parenchymal abnormalities in the brain. Calvarial windows appear unremarkable. IMPRESSION: Negative noncontrast brain CT. Dictated by: Dictated on workstation # [id number]
[2020-03-22 17:03] LABS: ACETAMINOPHEN < 10 UG/ML (10-30); SALICYLATE < 5.0 MG/DL (5.0-20.0)
--- NOTE | 2020-03-22 17:14 | NUR ---
Patient's daughter contacted, they prefer [facility] for transfer destination for patient.
[2020-03-22 17:15] LABS: CHLORIDE 89 MMOL/L (98-107); POTASSIUM 3.8 MMOL/L (3.6-5.0); SODIUM 133 MMOL/L (135-145)
--- OUTSIDE RECORDS SUMMARY | 2020-03-22 17:22 | XMS REPORT | Continuity of Care Document ---
Author Organization Unknown Address Unknown Phone Unavailable Allergies Active Description Code Type Severity Reaction Onset Reported/Identified Relationship to Patient Clinical Status Yes diphenhydramine [id number] D rug Allergy Unknown eyes water 02/12/2019 Yes iodine [id number] Drug Allergy Unknown N/A 02/12/2019 Yes No Known Drug Allergies [id number] Drug Allergy Unknown N/A 02/12/2019 Medications There [...] Ot G62.9 POLYNEUROPATHY, UNSPECIFIED 06/05/2019 DORIAN ALEJANDRA MD Ot R51 HEADACHE 06/05/2019 DORIAN ALEJANDRA MD, Ot S06.0X9A CONCUSSION W LOSS OF CONSCIOUSNESS OF UN 06/05/2019 DORIAN ALEJANDRA MD, Ot W19.XXXA UNSPECIFIED FALL, INITIAL ENCOUNTER 06/05/2019 DORIAN ALEJANDRA MD, Ot W22.8XXA STRIKING AGAINST OR STRUCK BY OTHER OBJE 06/05/2019 DORIAN ALEJANDRA MD, Ot Z88.8 ALLERGY STATUS TO OTH DRUG/MEDS/BIOL SUB 06/05/2019 DORIAN ALEJANDRA MD, Ot Z90.7 10 ACQUIRED ABSENCE OF BOTH CERVIX AND UTER 12/05/2019 BHATIA DO, DUKE L Ot A08.4 VIRAL INTESTINAL INFECTION, UNSPECIFIED 12/05/2019 BHATIA DO, DUKE L Ot R11.2 NAUSEA WITH VOMITING, UNSPECIFIED 12/05/2019 BHATIA DO, DUKE L Ot Z88.8 ALLERGY STATUS TO OTH DRUG/MEDS/BIOL SUB Procedures There is no data. Results Test [...] 7-25 CREATININE 0.54 mg/dL 0.50-1.10 eGFR NON-AFR. ITALIAN 111 mL/min/1.73m2 > OR = 60 eGFR [...] NRG Prescribed Drug 3 Clonazepam NRG Gabapentin 51307 ng/mL <1000 medMATCH Gabapentin CONSISTENT NRG PDM [...] ng/mL <100 medMATCH Desmethyltram CONSISTENT NRG Tramadol >80446 ng/mL <100 medMATCH Tramadol CONSISTENT NRG Complete [...] INFLUENZA A AND B ANTIGENS BY IA NRG Automated blood complete blood count (he mogram) [...] urinalysis with reflex to culture NO NRG Complete blood count (CBC) with automate d white blood cell (WBC) differential - 03/22/20 15:46 Blood leukocytes automated count (number/volume) 16.2 10*3/uL 4.3-11.0 Blood erythrocytes automated count (number/volume) 4.27 10*6/uL 4.35-5.85 Venous blood hemoglobin measurement (mass/volume) 13.9 g/dL 11.5-16.0 Blood hematocrit (volume fraction) 40 % 35-52 Automated erythrocyte mean corpuscular volume 93 [ foz_us] 80-99 Automated erythrocyte mean corpuscular h emoglobin (mass per erythrocyte) 33 pg 25-34 Automated erythrocyte mean corpuscular h emoglobin concentration measurement (mass/volume) 35 g/dL 32-36 Automated erythrocyte distribution width ratio 14. 4 % 10.0- 14.5 Automated blood platelet count (count/volume) 391 10*3/uL 130-400 Automated blood platelet mean volume measurement 10.6 [foz_us] 7.4-10.4 Automated blood neutrophils/100 leukocytes 74 % 42-75 Automated blood lymphocytes/100 leukocytes 18 % 12-44 Blood monocytes/100 leukocytes 6 % 0-12 Automated blood eosinophils/100 leukocytes 0 % 0-10 Automated blood basophils/100 leukocytes 0 % 0-10 Blood neutrophils automated count (number/volume) 12.0 10*3 1.8-7.8 Blood lymphocytes automated count (number/volume) 3.0 10*3 1.0-4.0 Blood monocytes automated count (number/volume) 1. 0 10*3 0.0-1.0 Automated eosinophil count 0.1 10*3/uL 0 .0-0.3 Automated blood basophil count (count/volume) 0.1 10*3/uL 0.0-0.1 Manual absolute plasma cell count - 03/06 15:46 Blood monocytes/100 leukocytes 6 % NRG Manual blood segmented neutrophils/100 leukocytes 71 % NRG Blood band neutrophils/100 leukocytes 1 % NRG Manual blood lymphocytes/100 leukocytes 22 % NRG Manual eosinophils/100 leukocytes in nose 0 % NRG Manual blood basophils/100 leukocytes 0 % NRG Blood erythrocyte morphology finding identification NORMAL NRG PT panel in platelet poor plasma by coag ulation assay - 03/22/20 15:46 Prothrombin time (PT) in platelet poor plasma by coagu lation assay 15.6 s 12.2-14.7 INR in platelet poor plasma or blood by coagulation as say 1.2 0.8-1.4 Activated partial thromboplastin time (a PTT) in platelet poor plasma bycoagulation assay - 03/22/20 15:46 Activated partial thromboplastin time (a PTT) in platelet poor plasma bycoagulation assay 26 s 24-35 Comprehensive metabolic panel - 03/22/20 15:46 Serum or plasma sodium measurement (moles/volume) 133 mmol/L 135-145 Serum or plasma potassium measurement (moles/volume) 3.8 mmol/L 3.6-5.0 Serum or plasma chloride measurement (moles/volume) 89 mmol/L 98-107 Carbon dioxide 21 mmol/L 21-32 Serum or plasma anion gap determination (moles/volume) 23 mmol/L 5-14 Serum or plasma urea nitrogen measurement (mass/volume ) 58 mg/dL 7-18 Serum or plasma creatinine measurement (mass/volume) 6.61 mg/dL 0.60-1.30 Serum or plasma urea nitrogen/creatinine mass ratio 9 NRG Serum or plasma creatinine measurement w ith calculation of estimated glomerular filtration rate 7 NRG Serum or plasma glucose measurement (mass/volume) 120 mg/dL 70-105 Serum or plasma calcium measurement (mass/volume) 9.2 mg/dL 8.5-10.1 Serum or plasma total bilirubin measurement (mass/volu me) 0.7 mg/dL 0.1-1.0 Serum or plasma alkaline phosphatase zari surement (enzymatic activity/volume) 83 U/L 40-136 Serum or plasma aspartate aminotransfera se measurement (enzymatic activity/volume) 26 U/L 5-34 Serum or plasma alanine aminotransferase measurement (enzymatic activity/volume) 24 U/L 0-55 Serum or plasma protein measurement (mass/volume) 7.8 g/dL 6.4-8.2 Serum or plasma albumin measurement (mass/volume) 4.3 g/dL 3.2-4.5 CALCIUM CORRECTED 9.0 mg/dL 8.5-10.1 TROPONIN I FS - 03/22/20 15:46 TROPONIN I FS < 0.30 <0.30 Capillary blood glucose measurement by g lucometer (mass/volume) - 03/22/20 15:56 Capillary blood glucose measurement by glucometer (mas s/volume) 121 mg/dL 70-110 Serum or plasma salicylates measurement (mass/volume) - 03/22/20 16:27 Serum or plasma salicylates measurement (mass/volume) < mg/dL 5.0-20.0 Serum or plasma acetaminophen measuremen t (mass/volume) - 03/22/20 16:27 Serum or plasma acetaminophen measurement (mass/volume ) < ug/mL 10-30 Serum or plasma ethanol measurement (mas s/volume) - 03/22/20 16:27 Serum or plasma ethanol measurement (mass/volume) < mg/dL <10 Encounters ACCT No. Visit Date/Time Discharge Status Pt. Type Provider Facility Loc./Unit Complaint [id number] 06/16/2019 10:00:00 06/16/2019 23:59:5 9 [facility] Outpatient GENOVEVA BROWN [facility] [id number] 04/02/2019 09:20:00 Document Registration [id number] 03/13/2019 09:00:00 Document Registration [id number] 11/25/2018 10:20:00 Document Registration [id number] 12/03/2019 15:16:00 020 16:27:00 DIS Outpatient DUKE BHATIA DO [facility] ER FS COUGHING BLOOD [id number] 06/03/2019 19:02:00 019 21:52:00 DIS Outpatient DORIAN ALEJANDRA MD [facility] ER FS WEAK,HEADACHE, BUMPS ON HEAD, CHEST PAIN [id number] 02/12/2019 12:11:00 019 12:46:00 DIS Emergency SKYLAR ROSE MD [facility] ER FS HEAD INJ [id number] 03/22/2020 15:35:[address] Emergency TITUS LARA DO [facility] ER FS STROKE SYMPTOMS
[2020-03-22 19:49] LABS: BILIRUBIN,URINE NEGATIVE (NEGATIVE); CLARITY,URINE CLEAR; COLOR,URINE YELLOW; GLUCOSE, URINE (UA) NEGATIVE (NEGATIVE); KETONES,URINE NEGATIVE (NEGATIVE); NITRITE,URINE NEGATIVE (NEGATIVE); PROTEIN,URINE 1+ (NEGATIVE)
[2020-03-22 19:50] LABS: BACTERIA,URINE FEW /HPF; HYALINE CASTS, URINE 0-2 /LPF; LEUKOCYTE ESTERASE ,URINE NEGATIVE (NEGATIVE)
[2020-03-22 20:40] VITALS: BP 94/52
[2020-03-22 21:05] LABS: AMPHETAMINE SCREEN, URINE POSITIVE (NEGATIVE); BARBITURATE SCREEN URINE NEGATIVE (NEGATIVE); BENZODIAZEPINES SCREEN URINE POSITIVE (NEGATIVE); CANNABINOID SCREEN, URINE NEGATIVE (NEGATIVE); COCAINE SCREEN URINE NEGATIVE (NEGATIVE); METHADONE STAT NEGATIVE (NEGATIVE); METHAMPHETAMINE SCREEN URINE S POSITIVE (NEGATIVE); OPIATE SCREEN URINE NEGATIVE (NEGATIVE); OXYCODONE STAT NEGATIVE (NEGATIVE); PROPOXYPHENE STAT NEGATIVE (NEGATIVE); TRICYCLIC ANTIDEPRESSANTS SCRE NEGATIVE (NEGATIVE)
== END 2020-03-22 20:42 | disposition short-term general hospital (02) ==
LOC: EDUNIT# 15:34 → ER FS 15:35
DX: N17.9 Acute kidney failure, unspecified (principal); R41.82 Altered mental status, unspecified; E86.0 Dehydration; J44.9 Chronic obstructive pulmonary disease, unspecified; E78.00 Pure hypercholesterolemia, unspecified; G62.9 Polyneuropathy, unspecified; M54.9 Dorsalgia, unspecified; Z86.73 Personal history of transient ischemic attack (TIA), and cerebral infarction without residual deficits; Z88.8 Allergy status to other drugs, medicaments and biological substances; Z91.048 Other nonmedicinal substance allergy status
CPT/HCPCS: 36415; 70450; 71045; 80053; 80306; 81000; 82962; 84484; 85007; 85027; 85610; 85730; 93005; 93041; 99284; G0480 ×3; 80320; 80329

== ENCOUNTER 2020-11-29 16:53 | Emergency (ER) | payer MEDICAID ==
[~2020-11-29] VITALS: Ht 167 cm; Wt 70.0 kg
[2020-11-29 17:26] LABS: BACTERIA,URINE NEGATIVE /HPF; BILIRUBIN,URINE NEGATIVE (NEGATIVE); CLARITY,URINE CLEAR; COLOR,URINE YELLOW; GLUCOSE, URINE (UA) NEGATIVE (NEGATIVE); KETONES,URINE NEGATIVE (NEGATIVE); LEUKOCYTE ESTERASE ,URINE NEGATIVE (NEGATIVE); NITRITE,URINE NEGATIVE (NEGATIVE); PROTEIN,URINE NEGATIVE (NEGATIVE); RBC,URINE RARE /HPF; WBC,URINE RARE /HPF
[2020-11-29 17:29] VITALS: BP 124/61
[2020-11-29 17:32] LABS: AMPHETAMINE SCREEN, URINE NEGATIVE (NEGATIVE); BARBITURATE SCREEN URINE NEGATIVE (NEGATIVE); BENZODIAZEPINES SCREEN URINE POSITIVE (NEGATIVE); CANNABINOID SCREEN, URINE NEGATIVE (NEGATIVE); COCAINE SCREEN URINE NEGATIVE (NEGATIVE); METHADONE STAT NEGATIVE (NEGATIVE); METHAMPHETAMINE SCREEN URINE S NEGATIVE (NEGATIVE); OPIATE SCREEN URINE NEGATIVE (NEGATIVE); TRICYCLIC ANTIDEPRESSANTS SCRE POSITIVE (NEGATIVE)
[2020-11-29 17:33] LABS: OXYCODONE STAT NEGATIVE (NEGATIVE); PROPOXYPHENE STAT NEGATIVE (NEGATIVE)
--- NOTE | 2020-11-29 17:44 | ED General ---
General Chief Complaint: Trauma-Non Activation Stated Complaint: FELL,HIT HEAD Nursing Triage Note: PT FELL 4 DAYS AGO AND HITTHE BACK RIGHT SIDE OF HER HEAD. NO LOC Nursing Sepsis Screen: No Definite Risk Source of Information: Patient History of Present Illness Date Seen by Provider: Nov 29, 2020 Time Seen by Provider: 16:55 Initial Comments 50 yo female presents from Dr. Munoz's office with her mom. She reports falling and hitting back of her head 4 days ago. She had no LOC. He had seen her in clinic today and was concerned about her being confused. Pt recognized me from a few years ago when I worked with [employer] and remember that I used to have blonde hair. Initially she declined to be evaluated then she agreed after her mom talked her into being seen. She denies any Methamphetamines but does admit to alcohol today. She denies any acute change in vision, nausea, vomiting. Location Injury Occurred: HOME Allergies and Home Medications Allergies Coded Allergies: iodine (Verified Allergy, Unknown, 02/12/19) diphenhydramine (Verified Adverse Reaction, Unknown, eyes water, 02/12/19) Home Medications Hydrocodone Bit/Acetaminophen 1 Tab Tab, 1 EACH PO Q6H PRN for PAIN-MODERATE Prescribed by: SKYLAR ROSE on 02/12/19 1233 Ondansetron 4 Mg Tab.rapdis, 4 MG PO Q6H PRN for NAUSEA/VOMITING Prescribed by: DUKE BHATIA on 12/03/19 1616 Potassium Chloride 20 Meq Tab.er.prt, 20 MEQ PO DAILY Prescribed by: DUKE BHATIA on 12/03/19 1616 Sulfamethoxazole/Trimethoprim 1 Each Tablet, 1 EACH PO BID Prescribed by: SKYLAR ROSE on 02/12/19 1233 Patient Home Medication List Home Medication List Reviewed: Yes Review of Systems Review of Systems Constitutional: No chills, No diaphoresis, No fever EENTM: No ear discharge, No ear pain, No blurred vision, No double vision, No eye pain, No vision loss, No epistaxis, No nose congestion Respiratory: No cough Cardiovascular: no symptoms reported Gastrointestinal: No nausea, No vomiting Genitourinary: No dysuria Musculoskeletal: no symptoms reported Skin: other (mild tenderness and mild swelling to occiput on right side where she hit her head 4 days ago with fall) Psychiatric/Neurological: Headache (back of head where she hit it with fall 4 days ago) Hematologic/Lymphatic: No Symptoms Reported Immunological/Allergic: no symptoms reported Past Rzvmecw-Lerhas-Shylgz Hx Past Med/Social Hx: Reviewed Nursing Past Med/Soc Hx Patient Social History Alcohol Use: Denies Use Drug of Choice: Recent marijuana use, history of meth use. Type Used: Cigarettes 2nd Hand Smoke Exposure: No Recent Infectious Disease Expo: No Recent Hopitalizations: No Seasonal Allergies Seasonal Allergies: No Past Medical History Surgeries: Yes Section, Gallbladder, Hysterectomy Respiratory: Yes COPD Cardiac: Yes High Cholesterol Neurological: Yes Neuropathy, Stroke Genitourinary: No Gastrointestinal: No Musculoskeletal: Yes Chronic Back Pain Endocrine: No HEENT: No Cancer: No Psychosocial: No Integumentary: No Blood Disorders: No Physical Exam Vital Signs Vital Signs - First Documented 11/29/20 17:29 Temp 36.5 Pulse 81 Resp 18 B/P (MAP) 124/61 (82) Pulse Ox 96 O2 Delivery Room Air Capillary Refill : Less Than 3 Seconds Height, Weight, BMI Height: 5'2.00" Weight: 160lbs. oz. 72.939049kb; 25.00 BMI Method:Stated General Appearance: No Apparent Distress (slurred speech and disheveled appearance) Eyes: Bilateral Eye PERRL, Bilateral Eye EOMI HEENT: PERRL/EOMI, Pharynx Normal, Other (blue tympanostomy tube present in both TM without drainage. No hemotympanum. 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 Norm as Tested Skin: Normal Color, Warm/Dry Progress/Results/Core Measures Suspected Sepsis Recent Fever Within 48 Hours: No Infection Criteria Present: None New/Unexplained Altered Menta: No Sepsis Screen: No Definite Risk SIRS Temperature: Pulse: 81 Respiratory Rate: 18 Laboratory Tests 11/29/20 17:25: White Blood Count 9.1 Blood Pressure 124 /61 Mean: 82 Laboratory Tests 11/29/20 17:25: Creatinine 0.52L, Platelet Count 247, Total Bilirubin 0.2 Results/Orders Lab Results Laboratory Tests Test 11/29/20 17:05 11/29/20 17:25 Range/Units Urine Color YELLOW Urine Clarity CLEAR Urine pH 6.0 5-9 Urine Specific [place] 1.020 1.016-1.022 Urine Protein NEGATIVE NEGATIVE Urine Glucose (UA) NEGATIVE NEGATIVE Urine Ketones NEGATIVE NEGATIVE Urine Nitrite NEGATIVE NEGATIVE Urine Bilirubin NEGATIVE NEGATIVE Urine Urobilinogen 0.2 < = 1.0 MG/DL Urine Leukocyte Esterase NEGATIVE NEGATIVE Urine RBC (Auto) NEGATIVE NEGATIVE Urine RBC RARE /HPF Urine WBC RARE /HPF Urine Squamous Epithelial Cells 5-10 /HPF Urine Crystals NONE /LPF Urine Bacteria NEGATIVE /HPF Urine Casts NONE /LPF Urine Mucus SMALL H /LPF Urine Culture Indicated NO Urine Opiates Screen NEGATIVE NEGATIVE Urine Oxycodone Screen NEGATIVE NEGATIVE Urine Methadone Screen NEGATIVE NEGATIVE Urine Propoxyphene Screen NEGATIVE NEGATIVE Urine Barbiturates Screen NEGATIVE NEGATIVE Ur Tricyclic Antidepressants Screen POSITIVE H NEGATIVE Urine Phencyclidine Screen NEGATIVE NEGATIVE Urine Amphetamines Screen NEGATIVE NEGATIVE Urine Methamphetamines Screen NEGATIVE NEGATIVE Urine Benzodiazepines Screen POSITIVE H NEGATIVE Urine Cocaine Screen NEGATIVE NEGATIVE Urine Cannabinoids Screen NEGATIVE NEGATIVE White Blood Count 9.1 4.3-11.0 10^3/uL Red Blood Count 4.19 L 4.35-5.85 10^6/uL Hemoglobin 13.3 11.5-16.0 G/DL Hematocrit 40 35-52 % Mean Corpuscular Volume 95 80-99 FL Mean Corpuscular Hemoglobin 32 25-34 PG Mean Corpuscular Hemoglobin Concent 33 32-36 G/DL Red Cell Distribution Width 13.2 10.0-14.5 % Platelet Count 247 130-400 10^3/uL Mean Platelet Volume 10.4 7.4-10.4 FL Immature Granulocyte % (Auto) 1 % Neutrophils (%) (Auto) 66 42-75 % Lymphocytes (%) (Auto) 26 12-44 % Monocytes (%) (Auto) 5 0-12 % Eosinophils (%) (Auto) 2 0-10 % Basophils (%) (Auto) 1 0-10 % Neutrophils # (Auto) 6.0 1.8-7.8 X 10^3 Lymphocytes # (Auto) 2.4 1.0-4.0 X 10^3 Monocytes # (Auto) 0.5 0.0-1.0 X 10^3 Eosinophils # (Auto) 0.2 0.0-0.3 10^3/uL Basophils # (Auto) 0.1 0.0-0.1 10^3/uL Immature Granulocyte # (Auto) 0.1 0.0-0.1 10^3/uL Sodium Level 140 135-145 MMOL/L Potassium Level 3.6 3.6-5.0 MMOL/L Chloride Level 100 98-107 MMOL/L Carbon Dioxide Level 27 21-32 MMOL/L Anion Gap 13 5-14 MMOL/L Blood Urea Nitrogen 9 7-18 MG/DL Creatinine 0.52 L 0.60-1.30 MG/DL Estimat Glomerular Filtration Rate > 60 BUN/Creatinine Ratio 17 Glucose Level 101 70-105 MG/DL Calcium Level 9.0 8.5-10.1 MG/DL Corrected Calcium 8.9 8.5-10.1 MG/DL Total Bilirubin 0.2 0.1-1.0 MG/DL Aspartate Amino Transf (AST/SGOT) 33 5-34 U/L Alanine Aminotransferase (ALT/SGPT) 24 0-55 U/L Alkaline Phosphatase 100 40-136 U/L Total Protein 7.2 6.4-8.2 GM/DL Albumin 4.1 3.2-4.5 GM/DL Lipase 36 8-78 U/L Serum Alcohol 21 H <10 MG/DL My Orders Orders - DORIAN ALEJANDRA MD Comprehensive Metabolic Panel (11/29/20 17:10) Lipase (11/29/20 17:10) Ua Culture If Indicated (11/29/20 17:10) Ed Iv/Invasive Line Start (11/29/20 17:10) Cbc With Automated Diff (11/29/20 17:10) Ct Head Wo (11/29/20 17:10) Drug Screen Stat (Urine) (11/29/20 17:10) Alcohol (11/29/20 17:42) Vital Signs/I&O 11/29/20 17:29 Temp 36.5 Pulse 81 Resp 18 B/P (MAP) 124/61 (82) Pulse Ox 96 O2 Delivery Room Air Capillary Refill : Less Than 3 Seconds Blood Pressure Mean: 82 Progress Note #1: Progress Note With her prior history of having acute renal failure and methamphetamine abuse last March and having altered mental status at that time will obtain urinalysis with drug screen as well as labs in addition to the CT of her head. Progress Note #2: Progress Note Urinalysis did not demonstrate any acute infection. Her urine drug screen showed tricyclic antidepressant and benzodiazepines. CBC stable without acute significant abnormality. Her CT head was read out as no acute fracture or intracranial process. She has a small scalp hematoma. Patient was anxious to leave and have follow-up with Dr. MUNOZ. She stated that she was due for medications that she needed to take home. Her mother did remark that she had been drinking a lot of alcohol today. This is likely the cause of the increased confusion and concern for Dr. MUNOZ when the patient was seen at his office. Patient will be discharged with her family. Encouraged to push fluids and rest. Chemistry stable and Alcohol level only 21. Diagnostic Imaging Diagonstic Imaging: CT Plain Films/CT/US/NM/MRI: head Comments [facility] [place] [place] NAME: ANA CRISTINA CHERRY [facility] REC#: [id number] PT STATUS: REG ER : 1970 PHYSICIAN: DORIAN ALEJANDRA MD ADMIT DATE: 11/29/20/ER FS Signed Date of Exam:11/29/20 CT HEAD WO EXAMINATION: CT head without contrast. TECHNIQUE: Multiple contiguous axial images were obtained through the brain without the use of intravenous contrast. All CT scans use one or more of the following dose optimizing techniques: automated exposure control, MA and/or KvP adjustment based on a patient size and exam type, or iterative reconstruction. HISTORY: Fall 4 days ago. Scalp contusion. Headache. COMPARISON: 03/22/2020. FINDINGS: No large acute territorial ischemia, mass, or hemorrhage. No midline shift or mass effect. The ventricles, cortical sulci, and basilar cisterns are patent and unremarkable. The orbits are normal. Paranasal sinuses are normal. Mastoid air cells are clear. No soft tissue abnormality is seen. No osseus lesions or fractures are seen. IMPRESSION: 1. No large acute territorial ischemia, mass, or hemorrhage. Dictated by: Dictated on workstation # [id number] Dict: 11/29/20 1747 Trans: 11/29/20 1757 [facility] [id number] Interpreted by: NILES DAVIS DO Electronically signed by: NILES DAVIS DO 11/29/20 1757 Departure Impression Primary Impression: Contusion of scalp, initial encounter Additional Impressions: Fall Qualified Codes: W19.XXXA - Unspecified fall, initial encounter Confusion Disposition: 01 HOME, SELF-CARE Condition: Stable Departure-Patient Inst. Decision time for Depature: 17:55 Referrals: WILMA MUNOZ DO (PCP/Family) Primary Care Physician Patient Instructions: Minor Head Injury, Adult ED, Minor Contusion ED Add. Discharge Instructions: Ice 10-15 minutes every few hours as needed for pain and swelling to your scalp and back of head. Stay well hydrated and drink plenty of water and electrolyte drinks. Continue on your regular medications and follow up with Dr. Munoz for continued concerns All discharge instructions reviewed with patient and/or family. Voiced understanding. DORIAN ALEJANDRA MD Nov 29, 2020 17:44
--- NOTE | 2020-11-29 17:50 | Diagnostic Imaging Report ---
EXAMINATION: CT head without contrast. TECHNIQUE: Multiple contiguous axial images were obtained through the brain without the use of intravenous contrast. All CT scans use one or more of the following dose optimizing techniques: automated exposure control, MA and/or KvP adjustment based on a patient size and exam type, or iterative reconstruction. HISTORY: Fall 4 days ago. Scalp contusion. Headache. COMPARISON: 03/22/2020. FINDINGS: No large acute territorial ischemia, mass, or hemorrhage. No midline shift or mass effect. The ventricles, cortical sulci, and basilar cisterns are patent and unremarkable. The orbits are normal. Paranasal sinuses are normal. Mastoid air cells are clear. No soft tissue abnormality is seen. No osseus lesions or fractures are seen. IMPRESSION: 1. No large acute territorial ischemia, mass, or hemorrhage. Dictated by: Dictated on workstation # [id number]
[2020-11-29 17:51] LABS: BASOPHILS % (AUTO) 1 % (0-10); EOSINOPHILS % (AUTO) 2 % (0-10); HEMATOCRIT 40 % (35-52); HEMOGLOBIN 13.3 G/DL (11.5-16.0); LYMPHOCYTES # (AUTO) 2.4 X 10^3 (1.0-4.0); LYMPHOCYTES % (AUTO) 26 % (12-44); MEAN CORPUSCULAR HEMOGLOBIN 32 PG (25-34); MEAN CORPUSCULAR HGB CONC 33 G/DL (32-36); MEAN CORPUSCULAR VOLUME 95 FL (80-99); MEAN PLATELET VOLUME 10.4 FL (7.4-10.4); MONOCYTES % (AUTO) 5 % (0-12); NEUTROPHILS % (AUTO) 66 % (42-75); PLATELET COUNT 247 10^3/uL (130-400); WHITE BLOOD COUNT 9.1 10^3/uL (4.3-11.0)
[2020-11-29 17:52] LABS: BASOPHILS # (AUTO) 0.1 10^3/uL (0.0-0.1); EOSINOPHILS # (AUTO) 0.2 10^3/uL (0.0-0.3); MONOCYTES # (AUTO) 0.5 X 10^3 (0.0-1.0)
[2020-11-29 18:08] LABS: CARBON DIOXIDE 27 MMOL/L (21-32); CHLORIDE 100 MMOL/L (98-107); POTASSIUM 3.6 MMOL/L (3.6-5.0); SODIUM 140 MMOL/L (135-145)
[2020-11-29 18:11] LABS: ALKALINE PHOSPHATASE 100 U/L (40-136); BILIRUBIN,TOTAL 0.2 MG/DL (0.1-1.0); BUN/CREATININE RATIO 17; CREATININE SERUM 0.52 MG/DL (0.60-1.30); GFR ESTIMATED > 60; GLUCOSE 101 MG/DL (70-105)
[2020-11-29 18:12] LABS: ALANINE AMINOTRANSFERASE 24 U/L (0-55); ALBUMIN 4.1 GM/DL (3.2-4.5); LIPASE 36 U/L (8-78); TOTAL PROTEIN 7.2 GM/DL (6.4-8.2)
== END 2020-11-29 18:01 | disposition home or self-care (01) ==
LOC: EDUNIT# 16:53 → ER FS 16:54
DX: S00.03XA Contusion of scalp, initial encounter (principal); R41.0 Disorientation, unspecified; G89.29 Other chronic pain; M54.9 Dorsalgia, unspecified; Z86.73 Personal history of transient ischemic attack (TIA), and cerebral infarction without residual deficits; Z91.041 Radiographic dye allergy status; Z88.8 Allergy status to other drugs, medicaments and biological substances; Z79.891 Long term (current) use of opiate analgesic; W22.8XXA Striking against or struck by other objects, initial encounter
CPT/HCPCS: 36415; 70450; 80053; 80306; 81000; 83690; 85025; G0480; 80320

== ENCOUNTER → 2021-05-18 | Outpatient (CLI) | payer MEDICAID ==
[~2021-05-18] MED LIST changes: -SULF1TAB35 PO; +SULF1TAB38 PO
--- NOTE | 2021-05-18 14:16 | Diagnostic Imaging Report ---
INDICATION: Pneumonia and cough as well as shortness of breath. TIME OF EXAM: 01:41 p.m. COMPARISON: Comparison is made with prior chest from 03/22/2020. FINDINGS: Heart size is normal. There is a rounded density in right upper lobe which appears increased since prior exam. Developing mass cannot be excluded. Remainder of the lung gilmore are clear. There is no effusion or pneumothorax. IMPRESSION: Increasing density in the right upper lobe. Dedicated CT chest would be recommended for further evaluation. Dictated by: Dictated on workstation # [id number]
== END ==
LOC: RAD FS 12:58
PROVIDERS: ATTEND Nurse Practitioner Family
DX: J15.8 Pneumonia due to other specified bacteria (principal)
CPT/HCPCS: 71046

== ENCOUNTER 2021-07-25 15:33 | Emergency (ER) | payer MEDICAID ==
[~2021-07-25] VITALS: Ht 157.4 cm; Wt 56.9 kg
--- NOTE | 2021-07-25 15:44 | ED Cough/URI ---
General Chief Complaint: Respiratory Problems Stated Complaint: PNEUMONIA SYMPTOMS History of Present Illness Date Seen by Provider: Jul 25, 2021 Time Seen by Provider: 15:44 Initial Comments 51-year-old female sent out due to cough and "pneumonia symptoms. No reports of fever. Patient has a history of COPD. She finished a course of Augmentin yesterday. She just recently tested negative for Covid and has been vaccinated. Patient presents because a continued cough with shortness of breath. Patient w as prescribed a nebulizer but did not get it due to insurance issues. She does report she has an inhaler. Allergies and Home Medications Allergies Coded Allergies: clindamycin (Verified Allergy, Unknown, Vomiting; Dizziness, 07/25/21) iodine (Verified Allergy, Unknown, 02/12/19) diphenhydramine (Verified Adverse Reaction, Unknown, eyes water, 02/12/19) Patient Home Medication List Home Medication List Reviewed: Yes Hydrocodone Bit/Acetaminophen (Lortab 5 Mg Tablet) 1 Tab Tab, 1 EACH PO Q6H PRN for PAIN-MODERATE Prescribed by: SKYLAR ROSE on 02/12/19 1233 Ondansetron (Ondansetron Odt) 4 Mg Tab.rapdis, 4 MG PO Q6H PRN for NAUSEA/VOMITING Prescribed by: DUKE BHATIA on 12/03/19 1616 Potassium Chloride (Potassium Chloride) 20 Meq Tab.er.prt, 20 MEQ PO DAILY Prescribed by: DUKE BHATIA on 12/03/19 1616 Sulfamethoxazole/Trimethoprim (Bactrim Ds Tablet) 1 Each Tablet, 1 EACH PO BID Prescribed by: SKYLAR ROSE on 02/12/19 1233 Review of Systems Review of Systems Constitutional: No chills, No fever Respiratory: cough, short of breath Cardiovascular: No chest pain Gastrointestinal: No abdominal pain, No nausea, No vomiting Skin: no symptoms reported Psychiatric/Neurological: No Symptoms Reported Hematologic/Lymphatic: No Symptoms Reported Past Gdufepe-Laxizo-Btzdis Hx Seasonal Allergies Seasonal Allergies: No Past Medical History Surgeries: Yes Section, Gallbladder, Hysterectomy Respiratory: Yes COPD Cardiac: Yes High Cholesterol Neurological: Yes Neuropathy, Stroke Genitourinary: No Gastrointestinal: No Musculoskeletal: Yes Chronic Back Pain Endocrine: No HEENT: No Cancer: No Psychosocial: No Integumentary: No Blood Disorders: No Physical Exam Vital Signs - First Documented 07/25/21 15:45 Temp 36.9 Pulse 100 Resp 22 B/P (MAP) 136/93 (107) Pulse Ox 94 O2 Delivery Nasal Cannula O2 Flow Rate 2.00 Capillary Refill : Height: 5'2.00" Weight: 160lbs. oz. 72.701815jt; 25.00 BMI Method:Stated General Appearance: no apparent distress, cachetic Respiratory: decreased breath sounds, other (Coarse breath sounds) Cardiovascular: normal peripheral pulses, regular rate, rhythm Gastrointestinal: non tender, soft Neurologic/Psychiatric: alert, normal mood/affect, oriented x 3 Skin: normal color, warm/dry Progress/Results/Core Measures Suspected Sepsis SIRS Temperature: Pulse: Respiratory Rate: Laboratory Tests 07/25/21 15:45: White Blood Count 11.0 Blood Pressure / Mean: Laboratory Tests 07/25/21 15:45: Creatinine 0.45L, Platelet Count 414H, Total Bilirubin 0.3 Results/Orders Lab Results Laboratory Tests Test 07/25/21 15:45 Range/Units White Blood Count 11.0 4.3-11.0 10^3/uL Red Blood Count 5.80 H 3.80-5.11 10^6/uL Hemoglobin 16.3 H 11.5-16.0 g/dL Hematocrit 50 35-52 % Mean Corpuscular Volume 87 80-99 fL Mean Corpuscular Hemoglobin 28 25-34 pg Mean Corpuscular Hemoglobin Concent 32 32-36 g/dL Red Cell Distribution Width 12.3 10.0-14.5 % Platelet Count 414 H 130-400 10^3/uL Mean Platelet Volume 10.7 9.0-12.2 fL Immature Granulocyte % (Auto) 1 % Neutrophils (%) (Auto) 62 42-75 % Lymphocytes (%) (Auto) 29 12-44 % Monocytes (%) (Auto) 6 0-12 % Eosinophils (%) (Auto) 2 0-10 % Basophils (%) (Auto) 1 0-10 % Neutrophils # (Auto) 6.8 1.8-7.8 X 10^3 Lymphocytes # (Auto) 3.2 1.0-4.0 X 10^3 Monocytes # (Auto) 0.7 0.0-1.0 X 10^3 Eosinophils # (Auto) 0.2 0.0-0.3 10^3/uL Basophils # (Auto) 0.1 0.0-0.1 10^3/uL Immature Granulocyte # (Auto) 0.1 0.0-0.1 10^3/uL Sodium Level 139 135-145 MMOL/L Potassium Level 3.2 L 3.6-5.0 MMOL/L Chloride Level 99 98-107 MMOL/L Carbon Dioxide Level 28 21-32 MMOL/L Anion Gap 12 5-14 MMOL/L Blood Urea Nitrogen 3 L 7-18 MG/DL Creatinine 0.45 L 0.60-1.30 MG/DL Estimat Glomerular Filtration Rate 146 BUN/Creatinine Ratio 7 Glucose Level 151 H 70-105 MG/DL Calcium Level 9.3 8.5-10.1 MG/DL Corrected Calcium 9.6 8.5-10.1 MG/DL Magnesium Level 1.4 L 1.6-2.4 MG/DL Total Bilirubin 0.3 0.1-1.0 MG/DL Aspartate Amino Transf (AST/SGOT) 37 H 5-34 U/L Alanine Aminotransferase (ALT/SGPT) 42 0-55 U/L Alkaline Phosphatase 519 H 40-136 U/L C-Reactive Protein 2.19 H <0.50 MG/DL Pro-B-Type Natriuretic Peptide 262.9 H <75.0 PG/ML Total Protein 6.9 6.4-8.2 GM/DL Albumin 3.6 3.2-4.5 GM/DL My Orders Orders - BHATIA,DUKE L DO Cbc With Automated Diff (07/25/21 15:53) Comprehensive Metabolic Panel (07/25/21 15:53) Magnesium (07/25/21 15:53) Probnp Fs (07/25/21 15:53) Crp Fs (07/25/21 15:53) Chest Pa/Lat (2 View) (07/25/21 15:53) Albuterol/Ipra Inhalation Soln (Duoneb I (07/25/21 16:00) Svn Small Volume Nebulizer (07/25/21 15:53) Cefepime Injection (Maxipime Injection) (07/25/21 16:45) Ct Chest Wo (07/25/21 16:32) Medications Given in ED Current Medications Medications Dose Ordered Sig/Jaosn Route Start Time Stop Time Status Last Admin Dose Admin Albuterol/ Ipratropium 3 ml ONCE ONCE INH 07/25/21 16:00 07/25/21 16:01 DC 07/25/21 16:00 3 ML Cefepime HCl 1000 mg/Sterile Water 10 ml @ 200 mls/hr ONCE ONCE IV 07/25/21 16:45 07/25/21 16:47 DC 07/25/21 16:51 200 MLS/HR Vital Signs/I&O 07/25/21 15:45 Temp 36.9 Pulse 100 Resp 22 B/P (MAP) 136/93 (107) Pulse Ox 94 O2 Delivery Nasal Cannula O2 Flow Rate 2.00 Capillary Refill : Progress Note : Progress Note Patient with complete lung collapse with pleural effusion per CT on the right. Patient is also requiring some minor oxygen with her O2 saturations around 88 upon arrival. Discussed findings with patient and recommended that we transfer her to [facility] for further treatment and evaluation. Patient refused admission. I offered her multiple other hospitals which she refused. I had a long discussion regarding patient's diagnosis and potential cause for , disability and worsening of her condition. Patient reports that she wan ts a cigarette and I offered her nicotine patches. Patient was adamant throughout her stay that she was not go to be admitted to the hospital. Her family also try to convince her to stay. We were unable to convince her and patient left AMA. She was stable but with potential to rapidly become worse which was once again explained to her. Patient reports that she will go to the hospital tomorrow on her own. Departure Impression Primary Impression: Pleural effusion on right Disposition: AGAINST MEDICAL ADVICE Condition: Unchanged Departure-Patient Inst. Referrals: WILMA MUNOZ DO (PCP/Family) Primary Care Physician DUKE BHATIA DO Jul 25, 2021 15:44
[2021-07-25 15:45] VITALS: BP 136/93
[2021-07-25] MEDS ORDERED: RT-ALBUTEROL/IPRATROPIUM 3 ML (DUONEB) VIAL INH ONE (16:00)
--- NOTE | 2021-07-25 16:28 | Diagnostic Imaging Report ---
INDICATION: Cough and shortness of breath. TECHNIQUE/COMPARISON: PA and lateral films of the chest were performed at 4:23 PM and compared to 05/18/2021. FINDINGS: There is significant unfavorable change compared to the prior study. There is now complete opacification of the right hemithorax and this may represent a combination of atelectasis, consolidation, and/or pleural fluid. There is no pneumothorax. There is central vascular congestion with some interstitial edema. There is no consolidation on the left side. There is no pneumothorax or pleural fluid on the left side. IMPRESSION: Unfavorable change with complete opacification of the right hemithorax which is a new finding compared to the prior study. This may represent a combination of pleural fluid, atelectasis, and/or consolidation, consider a chest CT for further evaluation. There is central vascular congestion on the left side with interstitial edema. Dictated by: Dictated on workstation # [id number]
[2021-07-25 16:39] LABS: BASOPHILS % (AUTO) 1 % (0-10); EOSINOPHILS % (AUTO) 2 % (0-10); HEMATOCRIT 50 % (35-52); HEMOGLOBIN 16.3 g/dL (11.5-16.0); LYMPHOCYTES # (AUTO) 3.2 X 10^3 (1.0-4.0); LYMPHOCYTES % (AUTO) 29 % (12-44); MEAN CORPUSCULAR HEMOGLOBIN 28 pg (25-34); MEAN CORPUSCULAR HGB CONC 32 g/dL (32-36); MEAN CORPUSCULAR VOLUME 87 fL (80-99); MEAN PLATELET VOLUME 10.7 fL (9.0-12.2); MONOCYTES % (AUTO) 6 % (0-12); NEUTROPHILS # (AUTO) 6.8 X 10^3 (1.8-7.8); NEUTROPHILS % (AUTO) 62 % (42-75); PLATELET COUNT 414 10^3/uL (130-400)
[2021-07-25 16:40] LABS: BASOPHILS # (AUTO) 0.1 10^3/uL (0.0-0.1); EOSINOPHILS # (AUTO) 0.2 10^3/uL (0.0-0.3); MONOCYTES # (AUTO) 0.7 X 10^3 (0.0-1.0)
[2021-07-25 16:41] LABS: ALBUMIN 3.6 GM/DL (3.2-4.5); BILIRUBIN,TOTAL 0.3 MG/DL (0.1-1.0); CALCIUM 9.3 MG/DL (8.5-10.1); CREATININE SERUM 0.45 MG/DL (0.60-1.30); MAGNESIUM 1.4 MG/DL (1.6-2.4); POTASSIUM 3.2 MMOL/L (3.6-5.0); TOTAL PROTEIN 6.9 GM/DL (6.4-8.2)
[2021-07-25] MEDS ORDERED: CEFEPIME INJECTION 1,000 MG in WATER (STERILE) FOR INJECTION 10 ML IV ONE (16:45)
--- NOTE | 2021-07-25 16:57 | Diagnostic Imaging Report ---
EXAMINATION: CT chest without contrast. TECHNIQUE: Multiple contiguous axial images were obtained through the chest without the use of intravenous contrast. All CT scans use one or more of the following dose optimizing techniques: automated exposure control, MA and/or KvP adjustment based on patient size and exam type or iterative reconstruction. HISTORY: Abnormal right lung COMPARISON: Chest radiograph 07/25/2021 FINDINGS: Thyroid: The thyroid is normal. Mediastinum: Heart size is normal without significant pericardial effusion. Calcifications of the aorta and coronary vessels. Thoracic aorta is normal in caliber. There is mild right to left mediastinal shift. No suspicious lymphadenopathy. Lungs and airways: There is a large right pleural effusion which causes complete collapse of the right lung. There are mild emphysematous changes in the left lung with trace left pleural effusion. No suspicious pulmonary lesion is seen. Air bronchograms are seen within the right lung. Upper abdomen: The subphrenic structures are normal. Musculoskeletal: Multilevel sclerotic lesions are seen throughout the spine. Multilevel degenerative changes of the spine. No compression fracture. IMPRESSION: 1. Large right pleural effusion causing complete collapse of the right lung and right to left mediastinal shift. 2. Small left pleural effusion. 3. Multiple sclerotic lesions seen throughout the spine. Recommend correlation with nuclear medicine bone scan. Dictated by: Dictated on workstation # [id number]
[2021-07-26] MEDS ORDERED: ALPR1TAB7 PO (07:43)
[2021-07-26] MEDS ORDERED: PROP20TA5 PO (07:43)
[2021-07-26] MEDS ORDERED: PANT40TA52 PO (07:43)
[2021-07-26] MEDS ORDERED: GBPN600T PO (07:43)
[2021-07-26] MEDS ORDERED: METH-732 PO (07:43)
[2021-07-26] MEDS ORDERED: RISP0.5T65 PO (07:43)
[2021-07-26] MEDS ORDERED: SERT-413 PO (07:43)
[2021-07-26] MEDS ORDERED: FLUT1BLS15 INH (07:43)
[2021-07-26] MEDS ORDERED: RT-ALBUINH IH (10:44)
[2021-07-26] MEDS ORDERED: MONT10TA32 PO (10:44)
[2021-07-26] MEDS ORDERED: AMIT50TA3 PO (10:44)
[2021-07-26] MEDS ORDERED: ASPI-1238 PO (10:44)
== END 2021-07-25 17:42 | disposition left against medical advice (07) ==
LOC: EDUNIT# 15:33 → ER FS 15:35
DX: J90 Pleural effusion, not elsewhere classified (principal); J44.9 Chronic obstructive pulmonary disease, unspecified; G89.29 Other chronic pain; M54.9 Dorsalgia, unspecified; Z86.73 Personal history of transient ischemic attack (TIA), and cerebral infarction without residual deficits; Z79.891 Long term (current) use of opiate analgesic
CPT/HCPCS: 36415; 71046; 71250; 80053; 83735; 83880; 85025; 86141

== ENCOUNTER 2021-07-25 19:25 | Inpatient (IN) | payer MEDICAID ==
[~2021-07-25] VITALS: Ht 157.5 cm; Wt 54.2 kg
--- NOTE | 2021-07-25 19:52 | ED Respiratory ---
General Stated Complaint: DX W/ PNEUMONIA Source: patient, RN/MD (Dr Bhatia [place] [facility]) Exam Limitations: no limitations History of Present Illness Date Seen by Provider: Jul 25, 2021 Time Seen by Provider: 19:40 Initial Comments Patient ER by private conveyance with chief complaint for the past week or so she has been having worsening shortness of breath cough without fever or chills. Diagnosed outpatient and treated with Augmentin which she completed a course of today. She is not feeling any better. She states he has a history of COPD smokes about a pack of cigarettes per day and went to the ER at [place]. There she was diagnosed with a complete right lung pleural effusion and collapse of the right lung. She was offered admission which she adamantly declined. She ended up going AGAINST MEDICAL ADVICE and after speaking with her family and still being short of breath she decided to come into the ER to be admitted today. She does not require supplemental oxygen at baseline however she has oxygen sats of 86 to 88% on ambulating into the room. Uses marijuana occasionally and states her last use of methamphetamines was about 2 months ago. Allergies and Home Medications Allergies Coded Allergies: clindamycin (Verified Allergy, Unknown, Vomiting; Dizziness, 07/25/21) iodine (Verified Allergy, Unknown, 02/12/19) diphenhydramine (Verified Adverse Reaction, Unknown, eyes water, 02/12/19) Patient Home Medication List Home Medication List Reviewed: Yes Hydrocodone Bit/Acetaminophen (Lortab 5 Mg Tablet) 1 Tab Tab, 1 EACH PO Q6H PRN for PAIN-MODERATE Prescribed by: SKYLAR ROSE on 02/12/19 1233 Ondansetron (Ondansetron Odt) 4 Mg Tab.rapdis, 4 MG PO Q6H PRN for NAUSEA/VOMITING Prescribed by: DUKE BHATIA on 12/03/19 1616 Potassium Chloride (Potassium Chloride) 20 Meq Tab.er.prt, 20 MEQ PO DAILY Prescribed by: DUKE BHATIA on 12/03/19 1616 Sulfamethoxazole/Trimethoprim (Bactrim Ds Tablet) 1 Each Tablet, 1 EACH PO BID Prescribed by: SKYLAR ROSE on 02/12/19 1233 Review of Systems Review of Systems Constitutional: No chills, No fever; malaise, weakness EENTM: No ear discharge, No hearing loss Respiratory: cough, phlegm, short of breath Cardiovascular: No edema, No Hx of Intervention, No palpitations Gastrointestinal: No abdominal pain, No nausea, No vomiting Genitourinary: No discharge, No dysuria Musculoskeletal: No back pain, No joint pain Psychiatric/Neurological: Denies Anxiety, Denies Depressed All Other Systems Reviewed Negative Unless Noted: Yes Past Fmvymgc-Pxtjrx-Qobzaw Hx Patient Social History Tobacco Use?: Yes Tobacco type used: Cigarettes Smoking Status: Current Everyday Smoker Smokeless Tobacco Frequency: Current Everyday User (1 pack) Use of E-Cig and/or Vaping dev: No Substance use?: Yes Substance type: Methamphetamine, Marijuana Substance frequency: Once in a while Immunizations Up To Date First/Initial COVID19 Vaccinat: 12-03-20 Second COVID19 Vaccination Delta: 02-02-21 Seasonal Allergies Seasonal Allergies: No Past Medical History Surgery/Hospitalization HX: COPD, Pneumonia, HTN, High Cholesterol, GERD, Depression Surgeries: Yes Section, Gallbladder, Hysterectomy Respiratory: Yes COPD Cardiac: Yes High Cholesterol Neurological: Yes Neuropathy, Stroke Genitourinary: No Gastrointestinal: No Musculoskeletal: Yes Chronic Back Pain Endocrine: No HEENT: No Cancer: No Psychosocial: No Integumentary: No Blood Disorders: No Physical Exam Vital Signs - First Documented 07/25/21 19:43 Temp 36.9 Pulse 95 Resp 20 B/P (MAP) 130/103 (112) Pulse Ox 96 O2 Delivery Nasal Cannula O2 Flow Rate 2.00 Capillary Refill : Height: 5'2.00" Weight: 160lbs. oz. 72.645693tg; 22.00 BMI Method:Stated General Appearance: WD/WN, moderate distress Eyes: Bilateral Eye Normal Inspection, Bilateral Eye PERRL, Bilateral Eye EOMI HEENT: PERRL/EOMI, normal ENT inspection; No pharynx normal (Dry oral mucosa) Neck: full range of motion, supple, normal inspection Respiratory: respiratory distress (86% on room air after ambulating to the room. With increased work of breathing, rate of 26 to 28 breaths/min), decreased breath sounds (Right side severely diminished breath sounds), accessory muscle use Cardiovascular: normal peripheral pulses, regular rate, rhythm (90s) Gastrointestinal: normal bowel sounds, non tender Extremities: non-tender, normal inspection, no pedal edema Neurologic/Psychiatric: alert, normal mood/affect, oriented x 3 Skin: normal color, warm/dry Progress/Results/Core Measures Suspected Sepsis SIRS Temperature: Pulse: Respiratory Rate: Blood Pressure / Mean: Results/Orders My Orders Orders - SKYLAR ROSE Blood Culture (07/25/21 19:54) Sputum Culture (07/25/21 19:54) Urinalysis (07/25/21 19:54) Urine Culture (07/25/21 19:54) Protime With Inr (07/25/21 19:54) Partial Thromboplastin Time (07/25/21 19:54) Ed Iv/Invasive Line Start (07/25/21 19:54) Ed Iv/Invasive Line Start (07/25/21 19:54) Vital Signs Adult Sepsis Patie Q15M (07/25/21 19:54) O2 (07/25/21 19:54) Remove Rings In Anticipation O (07/25/21 19:54) Lactic Acid Analyzer (07/25/21 19:54) Ns Iv 1000 Ml (Sodium Chloride 0.9%) (07/25/21 20:00) Vancomycin Injection (Vancomycin Injecti (07/25/21 20:00) Drug Screen Stat (Urine) (07/25/21 19:54) Covid 19 Inhouse Test (07/25/21 19:54) Morphine Injection (Morphine Injection (07/25/21 20:01) Arterial Blood Gas (07/25/21 20:04) Vital Signs/I&O 07/25/21 07/25/21 19:43 19:43 Temp 36.9 Pulse 95 Resp 20 B/P (MAP) 130/103 (112) Pulse Ox 96 O2 Delivery Nasal Cannula Nasal Cannula O2 Flow Rate 2.00 2.00 Capillary Refill : Progress Note : Time: 19:51 Progress Note Well her white count is not impressive at 11 she has tachypnea and tachycardia so we will give her a 20mL/kg fluid bolus and do a septic work-up. Her labs are adequate so we will not reorder these. We will make sure we have some blood cultures and a lactate. Cefepime and vancomycin. The patient appears to have already received a dose of cefepime and a DuoNeb. Will discuss her findings and need for further work-up outpatient. The patient has already received a dose of cefepime at the ER in [place]. She confirms this as well as the records do. We will swab her for COVID-19 and influenza. Diagnostic Imaging Diagonstic Imaging: Xray Plain Films/CT/US/NM/MRI: chest Comments [facility], [place] NAME: ANA CRISTINA CHERRY [facility] REC#: [id number] PT STATUS: REG ER : 1970 PHYSICIAN: DUKE BHATIA DO ADMIT DATE: 07/25/21/ER FS Signed Date of Exam:07/25/21 CHEST PA/LAT (2 VIEW) INDICATION: Cough and shortness of breath. TECHNIQUE/COMPARISON: PA and lateral films of the chest were performed at 4:23 PM and compared to 05/18/2021. FINDINGS: There is significant unfavorable change compared to the prior study. There is now complete opacification of the right hemithorax and this may represent a combination of atelectasis, consolidation, and/or pleural fluid. There is no pneumothorax. There is central vascular congestion with some interstitial edema. There is no consolidation on the left side. There is no pneumothorax or pleural fluid on the left side. IMPRESSION: Unfavorable change with complete opacification of the right hemithorax which is a new finding compared to the prior study. This may represent a combination of pleural fluid, atelectasis, and/or consolidation, consider a chest CT for further evaluation. There is central vascular congestion on the left side with interstitial edema. Dictated by: Dictated on workstation # [id number] Dict: 07/25/21 1624 Trans: 07/25/21 165 [id number] Interpreted by: SHWETHA BRANNON MD Electronically signed by: SHWETHA BRANNON MD 07/25/211652 Reviewed: Reviewed by Me Diagonstic Imaging: CT Plain Films/CT/US/NM/MRI: chest Comments [facility], [place] NAME: ANA CRISTINA CHERRY [facility] REC#: [id number] PT STATUS: REG ER : 1970 PHYSICIAN: DUKE BHATIA DO ADMIT DATE: 07/25/21/ER FS Signed Date of Exam:07/25/21 CT CHEST WO EXAMINATION: CT chest without contrast. TECHNIQUE: Multiple contiguous axial images were obtained through the chest without the use of intravenous contrast. All CT scans use one or more of the following dose optimizing techniques: automated exposure control, MA and/or KvP adjustment based on patient size and exam type or iterative reconstruction. HISTORY: Abnormal right lung COMPARISON: Chest radiograph 07/25/2021 FINDINGS: Thyroid: The thyroid is normal. Mediastinum: Heart size is normal without significant pericardial effusion. Calcifications of the aorta and coronary vessels. Thoracic aorta is normal in caliber. There is mild right to left mediastinal shift. No suspicious lymphadenopathy. Lungs and airways: There is a large right pleural effusion which causes complete collapse of the right lung. There are mild emphysematous changes in the left lung with trace left pleural effusion. No suspicious pulmonary lesion is seen. Air bronchograms are seen within the right lung. Upper abdomen: The subphrenic structures are normal. Musculoskeletal: Multilevel sclerotic lesions are seen throughout the spine. Multilevel degenerative changes of the spine. No compression fracture. IMPRESSION: 1. Large right pleural effusion causing complete collapse of the right lung and right to left mediastinal shift. 2. Small left pleural effusion. 3. Multiple sclerotic lesions seen throughout the spine. Recommend correlation with nuclear medicine bone scan. Dictated by: Dictated on workstation # [id number] Dict: 07/25/211649 Trans: 07/25/211657 [facility] [id number] Interpreted by: MARCO HASSAN DO Electronically signed by: MARCO HASSAN DO 07/25/211657 Reviewed: Reviewed by Mi Departure Communication (Admissions) Time/Spoke to Admitting Phy: 20:10 Discussed the case with Dr. Jensen and she agrees to admit the patient to the ICU on oxygen, cefepime, vancomycin and with a consult to general surgery for pleurocentesis. Time/Spoke to Consulting Phy: 20:11 Discussed the case with Dr. Tsai, general surgery and he agrees to consult in the morning Impression Primary Impression: Pneumonia Qualified Codes: J18.9 - Pneumonia, unspecified organism Additional Impressions: Sepsis Qualified Codes: A41.9 - Sepsis, unspecified organism; R65.20 - Severe sepsis without septic shock; J96.01 - Acute respiratory failure with hypoxia Acute respiratory failure with hypoxemia Disposition: ADMITTED INPATIENT Condition: Stable Admissions Decision to Admit Reason: Admit from ER (General) Decision to Admit/Date: Jul 25, 2021 Time/Decision to Admit Time: 20:00 Departure-Patient Inst. Referrals: WILMA MUNOZ DO (PCP/Family) Primary Care Physician Copy Copies To 1: WILMA MUNOZ TITUS J Jul 25, 2021 19:52
[2021-07-25] MEDS ORDERED: VANCOMYCIN INJECTION 1,000 MG in NS (IVPB) 250 ML IV ONE (20:00)
[2021-07-25] MEDS ORDERED: NS IV 1000 ML 1,000 ML IV SCH (20:00)
[2021-07-25] MEDS ORDERED: morphine INJ 10 MG/ML 1ML (SYR OR VIAL) IVP STA (20:01)
[2021-07-25 20:21] LABS: ABG BASE EXCESS 4.7 MMOL/L (-2.5-2.5); ABG OXYGEN SATURATION 93 % (94-100); ABG PCO2 47 MMHG (35-45); ABG PH 7.41 (7.37-7.43); ABG PO2 67 MMHG (79-93); ABG TCO2 30.6 MMOL/L (21.0-31.0); ALLENS TEST YES-POS; INSPIRED O2 2L; PATIENT TEMP 36.9; VENTILATOR NO
--- NOTE | 2021-07-25 20:44 | Tele-ICU Consult ---
History of Present Illness History of Present Illness Date Seen by Provider: Jul 25, 2021 Time Seen by Provider: 20:25 Date of Admission This virtual visit was conducted using real time audio/video. Thank you for asking us to see this patient for respiratory insufficiency due to large R pleural effusion causing complete lung atelectasis and mediastinal shift to left. Recent events: Seen at OSH recently. PMH: COPD. SH: smoking history Y FH: Non-contributory ROS: as in HPI PE: Thin. VSS. O2 86 % sat on RA, 96% on 2 LPM NC. HEENT: No obvious masses, adenopathy or JVD. Chest: greatly diminished breath sounds R CV: RRR S1 S2 No murmur or added sounds. Abd: Non-tender. Bowel sounds Y. : Unremarkable. [employer]/psychiatric: Grossly intact. No obvious focal findings. Extremities: edema. Capillary refill < 3 seconds. Skin: unremarkable. Results: Elevated WWCC 11.0. B.41/47/67 on 2LPM. CXR: [place] hyperinflated. R chest opacified w mediastinal left shift. L air bronchograms. CTC w similar. Available chart/ vitals / labs / images reviewed. Video assessment done using teleICU camera, rest of exam as per RN. A/P: Respiratory insufficiency/ large R pleural effusion. High suspicion for malignancy: Continue present management with IVF, empiric abx Monitor for increasing oxygenation needs and/or need for intubation. Critical Care: critically ill patient. Will need high volume thoracentesis and possibly bronchoscopy or CT guided needle biopsy. Discussed with GOMEZ Serna . Asked RN to reach out to eICU if any questions or concerns later. Time spent with patient/coordination of care with other health professionals (mins): 27 Allergies and Home Medications Allergies Coded Allergies: clindamycin (Verified Allergy, Unknown, Vomiting; Dizziness, 07/25/21) iodine (Verified Allergy, Unknown, 02/12/19) diphenhydramine (Verified Adverse Reaction, Unknown, eyes water, 02/12/19) Home Medications Hydrocodone Bit/Acetaminophen 1 Tab Tab, 1 EACH PO Q6H PRN for PAIN-MODERATE Prescribed by: SKYLAR ROSE on 02/12/19 1233 Ondansetron 4 Mg Tab.rapdis, 4 MG PO Q6H PRN for NAUSEA/VOMITING Prescribed by: DUKE BHTAIA on 12/03/19 1616 Potassium Chloride 20 Meq Tab.er.prt, 20 MEQ PO DAILY Prescribed by: DUKE BHATIA on 12/03/19 1616 Sulfamethoxazole/Trimethoprim 1 Each Tablet, 1 EACH PO BID Prescribed by: SKYLAR ROSE on 02/12/19 1233 Past Medical/Social/Family Hx Patient Social History Tobacco Use?: Yes Tobacco type used: Cigarettes Smoking Status: Current Everyday Smoker Smokeless Tobacco Frequency: Current Everyday User (1 pack) Use of E-Cig and/or Vaping dev: No Substance use?: Yes Substance type: Methamphetamine, Marijuana Substance frequency: Once in a while Alcohol Use?: Yes Alcohol Frequency: Once in a while Pt stated abuse/neglect: No Immunizations Up To Date First/Initial COVID19 Vaccinat: 12-03-20 Second COVID19 Vaccination Delta: 02-02-21 Current Status status: No Advance Directives: No Communicates: Verbally Primary Language: Citizen [place] Preferred Spoken Language: Citizen [place] Is interpretation needed?: No Review of Systems Constitutional: see HPI Respiratory: see HPI Cardiovascular: see HPI Genitourinary: see HPI Musculoskeletal: see HPI Skin: see HPI (See free text) Sepsis Event Evaluation Height, Weight, BMI Height: 5'2.00" Weight: 160lbs. oz. 72.665523yw; 22.00 BMI Method:Stated Exam Exam Patient acknowledged, consented, and participated in this virtual visit which was conducted using real time audio/video Vital Signs Date Time Temp Pulse Resp B/P (MAP) Pulse Ox O2 Delivery O2 Flow Rate FiO2 07/25/21 20:35 36.8 94 16 112/92 94 Nasal Cannula 2.00 07/25/21 19:43 36.9 95 20 130/103 (112) 96 Nasal Cannula 2.00 07/25/21 19:43 96 Nasal Cannula 2.00 07/25/21 19:43 Nasal Cannula 2.00 Height & Weight Height: 5'2.00" Weight: 160lbs. oz. 72.628649jr; 22.00 BMI Method:Stated General Appearance: Cachetic Capillary Refill: Less Than 3 Seconds Peripheral Pulses: 1+ Dorsalis Pedis (R), 1+ Left Dors-Pedis (L) (See free text.) Gastrointestinal: normal bowel sounds, non tender Assessment/Plan Assessment/Plan See free text. Critical Care: Critically Ill Patient DOMINIC EMMANUEL MD Jul 25, 2021 20:44
[2021-07-25 20:51] LABS: INR 1.1 (0.8-1.4); PROTHROMBIN TIME PATIENT 14.7 SEC (12.2-14.7)
[2021-07-25] MEDS ORDERED: ACETAMINOPHEN 325 MG TABLET PO PRN (21:30)
[2021-07-25] MEDS ORDERED: ONDANSETRON 4 MG/2 ML (SDV) Z0FRAN IV PRN (21:30)
[2021-07-25] MEDS ORDERED: NICOTINE 14 MG (NICODERM) PATCH TD ONE (21:42)
[2021-07-25] MEDS: NICOTINE 14 MG (NICODERM) PATCH TD SCH (21:44)
[2021-07-25] MEDS: LACTATED RINGERS 1,000 ML IV SCH (21:44)
[2021-07-25] MEDS ORDERED: LORazepam INJ 2 MG/ML (ATIVAN) VIAL IV PRN (21:45)
[2021-07-25] MEDS ORDERED: EPINEPHrine 1 MG INJECTION 4 MG in NS (IVPB) 248 ML IV SCH (21:45)
[2021-07-25] MEDS: HYDROcodone/APAP 5 MG/325 MG (LORTAB) TAB PO PRN (21:50)
[2021-07-25] MEDS: VASOPRESSIN INJECTION 20 UNIT in NS (IVPB) 100 ML IV SCH (22:16)
[2021-07-25] MEDS: NOREPINEPHRINE 8 MG/250 ML 250 ML IV SCH (22:16)
[2021-07-25] MEDS: CEFEPIME 1,000 MG/SWFI 10 ML IV PUSH IV SCH ×2 (22:20)
[2021-07-26] MEDS: VANCOMYCIN 750 MG/NS 250 ML IVPB IV SCH ×6 (01:57→18:18)
[2021-07-26] MEDS: morphine INJ 4 MG/ML 1 ML (VIAL/SYRINGE) IV PRN ×2 (01:57→07:48)
[2021-07-26] MEDS: HYDROcodone/APAP 5 MG/325 MG (LORTAB) TAB PO PRN ×2 (04:49→16:04)
[2021-07-26] MEDS: CEFEPIME 1,000 MG/SWFI 10 ML IV PUSH IV SCH ×8 (04:49→22:44)
[2021-07-26 05:02] LABS: BASOPHILS # (AUTO) 0.1 10^3/uL (0.0-0.1); BASOPHILS % (AUTO) 1 % (0-10); EOSINOPHILS # (AUTO) 0.1 10^3/uL (0.0-0.3); EOSINOPHILS % (AUTO) 1 % (0-10); HEMATOCRIT 47 % (35-52); HEMOGLOBIN 14.9 g/dL (11.5-16.0); LYMPHOCYTES # (AUTO) 2.3 10^3/uL (1.0-4.0); LYMPHOCYTES % (AUTO) 20 % (12-44); MEAN CORPUSCULAR HEMOGLOBIN 29 pg (25-34); MEAN CORPUSCULAR HGB CONC 31 g/dL (32-36); MEAN CORPUSCULAR VOLUME 91 fL (80-99); MEAN PLATELET VOLUME 10.7 fL (9.0-12.2); MONOCYTES # (AUTO) 0.7 10^3/uL (0.0-1.0); MONOCYTES % (AUTO) 6 % (0-12); NEUTROPHILS % (AUTO) 71 % (42-75); PLATELET COUNT 378 10^3/uL (130-400); WHITE BLOOD COUNT 11.2 10^3/uL (4.3-11.0)
[2021-07-26 05:14] LABS: ALBUMIN 3.2 GM/DL (3.2-4.5); POTASSIUM 4.3 MMOL/L (3.6-5.0)
[2021-07-26 05:15] LABS: CALCIUM 8.6 MG/DL (8.5-10.1)
[2021-07-26 05:16] LABS: TOTAL PROTEIN 6.1 GM/DL (6.4-8.2)
[2021-07-26 05:18] LABS: BILIRUBIN,TOTAL 0.3 MG/DL (0.1-1.0)
[2021-07-26 05:19] LABS: PHOSPHORUS 4.9 MG/DL (2.3-4.7)
[2021-07-26 05:20] LABS: CREATININE SERUM 0.6 MG/DL (0.60-1.30)
[2021-07-26 05:23] LABS: MAGNESIUM 1.5 MG/DL (1.6-2.4)
[2021-07-26] MEDS: POTASSIUM CL 10MEQ/50ML IVPB 50 ML IV SCH (06:12)
[2021-07-26] MEDS: MAGNESIUM 1 GM/100 ML IVPB 100 ML IV SCH ×3 (06:13→08:29)
[2021-07-26] MEDS: KCL 20 MEQ TAB (K-DUR) PO SCH (06:13)
--- NOTE | 2021-07-26 07:34 | Consultation - Surgery ---
HUGOANA 07/26/21 0734: History of Present Illness History of Present Illness Patient Consulted On(arleth/time) 07/26/21 07:29 Date Seen by Provider: Jul 26, 2021 Time Seen by Provider: 07:15 Reason for Visit: Surgical consult for large R pleural effusion History of Present Illness 51 y.o F with a pmh of htn, copd, and asthma presented with constant shortness of breath, cough, fatigue. Patient is in moderate distress from respiratory issues. Patient is having a difficult time communicating because of symptoms. Patient states she is in pain and distress from symptoms. Symptoms started months ago and has been getting worse. Patient on 2L nasal canula, states it is helping but still in discomfort. Chest pain discomfort, but patient states it is from coughing and her trouble breathing. Patient cannot take deep breaths and was coughing a lot o/n. Patient has been feeling hot with nausea. Patient states she has an appetite and has been drinking fluids. Spitting up think mucous. Patient denies vomiting, diarrhea, blood in urine and stool, changes in vision, paresthesia or numbness, or significant weight loss. It was difficult to get her story from when symptoms began. Patient stated she received CXR several months ago when symptoms started but uncertain what transpired after and when clinical course was completed. Allergies and Home Medications Allergies Coded Allergies: clindamycin (Verified Allergy, Unknown, Vomiting; Dizziness, 07/25/21) iodine (Verified Allergy, Unknown, 02/12/19) diphenhydramine (Verified Adverse Reaction, Unknown, eyes water, 02/12/19) Patient Home Medication List Home Medication List Reviewed: No Albuterol Sulfate (Proair Hfa) 1 Puff Puff, 2 PUFF IH Q4H PRN for SHORTNESS OF BREATH, (Reported) Entered as Reported by: MATT BUSH on 07/26/21 1044 Last Action: Reviewed Alprazolam (Alprazolam) 1 Mg Tablet, 1 MG PO TID, (Reported) Entered as Reported by: MARILEE KHANNA on 07/26/21 0743 Last Action: Reviewed Amitriptyline HCl (Amitriptyline HCl) 50 Mg Tablet, 50-100 MG PO HS, (Reported) Entered as Reported by: MATT BUSH on 07/26/21 104 Last Action: Reviewed Aspirin (Aspirin EC) 81 Mg Tablet.dr, 81 MG PO DAILY, (Reported) Entered as Reported by: MATT BUSH on 07/26/211043 Last Action: Reviewed Fluticasone/Umeclidin/Vilanter (Trelegy Ellipta 200-62.5-25) 1 Each Blst.w.dev, 1 INH INH DAILY, (Reported) Entered as Reported by: MARILEE KHANNA on 07/26/21742 Last Action: Reviewed Gabapentin (Gabapentin) 600 Mg Tablet, 600 MG PO TID, (Reported) Entered as Reported by: MARILEE KHANNA on 07/26/21742 Last Action: Reviewed Methocarbamol (Methocarbamol) 750 Mg Tablet, 750 MG PO BID, (Reported) Entered as Reported by: MARILEE KHANNA on 07/26/21742 Last Action: Reviewed Montelukast Sodium (Montelukast Sodium) 10 Mg Tablet, 10 MG PO DAILY, (Reported) Entered as Reported by: MATT BUSH on 07/26/211043 Last Action: Reviewed Pantoprazole Sodium (Pantoprazole Sodium) 40 Mg Tablet.dr, 40 MG PO DAILY, (Reported) Entered as Reported by: MARILEE KHANNA on 07/26/21742 Last Action: Reviewed Propranolol HCl (Propranolol HCl) 20 Mg Tablet, 20 MG PO TID, (Reported) Entered as Reported by: MARILEE KHANNA on 07/26/21742 Last Action: Reviewed Sertraline HCl (Sertraline HCl) 50 Mg Tablet, 50 MG PO DAILY, (Reported) Entered as Reported by: MARILEE KHANNA on 07/26/21742 Last Action: Reviewed Discontinued Medications Hydrocodone Bit/Acetaminophen (Lortab 5 Mg Tablet) 1 Tab Tab, 1 EACH PO Q6H PRN for PAIN-MODERATE Discontinued Reason: Duplicate Order Prescribed by: SKYLAR ROSE on 02/12/19 1233 Last Action: Discontinued Ondansetron (Ondansetron Odt) 4 Mg Tab.rapdis, 4 MG PO Q6H PRN for NAUSEA/VOMITING Discontinued Reason: No Longer Taking Prescribed by: DUKE BHATIA on 12/03/19 1616 Last Action: Discontinued Potassium Chloride (Potassium Chloride) 20 Meq Tab.er.prt, 20 MEQ PO DAILY Discontinued Reason: No Longer Taking Prescribed by: DUKE BHATIA on 12/03/19 1616 Last Action: Discontinued Risperidone (Risperidone) 0.5 Mg Tablet, 0.5 MG PO DAILY, (Reported) Discontinued Reason: No Longer Taking Entered as Reported by: MARILEE KHANNA on 07/26/21 0743 Last Action: Discontinued Sulfamethoxazole/Trimethoprim (Bactrim Ds Tablet) 1 Each Tablet, 1 EACH PO BID Discontinued Reason: No Longer Taking Prescribed by: SKYLAR ROSE on 02/12/19 1233 Last Action: Discontinued Past Wnmoswm-Yrukvw-Snwgpv Hx Patient Social History Drug of Choice: Recent marijuana use, history of meth use. Smoking Status: Current Everyday Smoker Type Used: Cigarettes (Smoked 1pk since age 10.) 2nd Hand Smoke Exposure: No Recent Hopitalizations: No Alcohol Use?: Yes Substance type: Marijuana Have you traveled recently?: No Seasonal Allergies Seasonal Allergies: No Surgeries History of Surgeries: Yes Surgeries: Section, Gallbladder, Hysterectomy Respiratory History of Respiratory Disorde: Yes Respiratory Disorders: Asthma, COPD Cardiovascular History of Cardiac Disorders: Yes Cardiac Disorders: High Cholesterol Neurological History of Neurological Disord: Yes Neurological Disorders: Neuropathy, Stroke Genitourinary History of Genitourinary Disor: No Gastrointestinal History of Gastrointestinal Di: No Musculoskeletal History of Musculoskeletal Dis: Yes Musculoskeletal Disorders: Chronic Back Pain Endocrine History of Endocrine Disorders: No HEENT History of HEENT Disorders: No Cancer History of Cancer: No Psychosocial History of Psychiatric Problem: No Integumentary History of Skin or Integumenta: No Blood Transfusions History of Blood Disorders: No Family Medical History Significant Family History: Cancer (Father from pancreatic cancer, age unknown.) Review of Systems-General Constitutional: fever, weakness EENTM: No hearing loss, No vision loss, No epistaxis Respiratory: cough, dyspnea on exertion, phlegm, short of breath Cardiovascular: chest pain (States it is from breathing issues and coughing.); No palpitations, No syncope Gastrointestinal: No abdominal pain, No diarrhea, No hematemesis, No loss of appetite, No melena Genitourinary: No dysuria, No frequency, No hematuria Musculoskeletal: back pain, muscle pain (From fatigue due to symptoms.), muscle stiffness (From fatigue due to symptoms.) Skin: No change in color; dryness; No pruritus Psychiatric/Neurological: Headache; Denies Numbness, Denies Paresthesia Physical Exam-General Problems Physical Exam Vital Signs Vital Signs - First Documented 07/25/21 19:43 Temp 36.9 Pulse 95 Resp 20 B/P (MAP) 130/103 (112) Pulse Ox 96 O2 Delivery Nasal Cannula O2 Flow Rate 2.00 Capillary Refill : Less Than 3 Seconds General Appearance: moderate distress, thin Eyes: Bilateral Eye PERRL HEENT: No scleral icterus (R), No scleral icterus (L) Neck: full range of motion, normal inspection; No carotid bruit Respiratory: decreased breath sounds (Right side worse than left.), crackles (Left side) Cardiovascular: regular rate, rhythm, no gallop, no murmur Peripheral Pulses: 2+ Dorsalis Pedis (R), 2+ Radial Pulses (R), 2+ Radial Pulses (L) Gastrointestinal: normal bowel sounds, non tender, soft, no organomegaly, no pulsatile mass Back: no CVA tenderness, other (Lower back pain on palpation.) Extremities: normal range of motion, non-tender, no calf tenderness Neurologic/Psychiatric: no motor/sensory deficits, alert, normal mood/affect, oriented x 3 Skin: normal color, warm/dry Lymphatic: no adenopathy (cervical, axillary) Data Review Labs Laboratory Tests 07/25/21 20:10: Prothrombin Time 14.7, INR Comment 1.1, Activated Partial Thromboplast Time 28, Lactic Acid Level 2.14*H 07/25/21 20:14: Blood Gas Puncture Site L RAD, Blood Gas Patient Temperature 36.9, Arterial Blood pH 7.41, Arterial Blood Partial Pressure CO2 47H, Arterial Blood Partial Pressure O2 67L, Arterial Blood HCO3 29H, Arterial Blood Total CO2 30.6, Arterial Blood Oxygen Saturation 93L, Arterial Blood Base Excess 4.7H, Chance Test YES-POS, Blood Gas Ventilator Setting NO, Blood Gas Inspired Oxygen 2L 07/25/21 20:22: SARS-CoV-2 RNA (RT-PCR) Not Detected 07/25/21 22:25: Lactic Acid Level 1.95 07/26/21 04:45: White Blood Count 11.2H, Red Blood Count 5.19H, Hemoglobin 14.9, Hematocrit 47, Mean Corpuscular Volume 91, Mean Corpuscular Hemoglobin 29, Mean Corpuscular Hemoglobin Concent 31L, Red Cell Distribution Width 12.2, Platelet Count 378, Mean Platelet Volume 10.7, Immature Granulocyte % (Auto) 1, Neutrophils (%) (Auto) 71, Lymphocytes (%) (Auto) 20, Monocytes (%) (Auto) 6, Eosinophils (%) (Auto) 1, Basophils (%) (Auto) 1, Neutrophils # (Auto) 8.0H, Lymphocytes # (Auto) 2.3, Monocytes # (Auto) 0.7, Eosinophils # (Auto) 0.1, Basophils # (Auto) 0.1, Immature Granulocyte # (Auto) 0.1, Sodium Level 139, Potassium Level 4.3, Chloride Level 100, Carbon Dioxide Level 26, Anion Gap 13, Blood Urea Nitrogen 4L, Creatinine 0.60, Estimat Glomerular Filtration Rate 105, BUN/Creatinine Ratio 7, Glucose Level 147H, Calcium Level 8.6, Corrected Calcium 9.2, Phosphorus Level 4.9H, Magnesium Level 1.5L, Total Bilirubin 0.3, Aspartate Amino Transf (AST/SGOT) 42H, Alanine Aminotransferase (ALT/SGPT) 48, Alkaline Phosphatase 388H, Total Protein 6.1L, Albumin 3.2 Radiology CXR was performed on 07/26/2021 at 05:41AM. No report as of this note. Possible right side effusion. CT performed 07/25/2021: [facility], [place] NAME: ANA CRISTINA CHERRY [facility] REC#: [id number] PT STATUS: REG ER : 1970 PHYSICIAN: DUKE BHATIA DO ADMIT DATE: 07/25/21/ER FS Signed Date of Exam:07/25/21 CT CHEST WO EXAMINATION: CT chest without contrast. TECHNIQUE: Multiple contiguous axial images were obtained through the chest without the use of intravenous contrast. All CT scans use one or more of the following dose optimizing techniques: automated exposure control, MA and/or KvP adjustment based on patient size and exam type or iterative reconstruction. HISTORY: Abnormal right lung COMPARISON: Chest radiograph 07/25/2021 FINDINGS: Thyroid: The thyroid is normal. Mediastinum: Heart size is normal without significant pericardial effusion. Calcifications of the aorta and coronary vessels. Thoracic aorta is normal in caliber. There is mild right to left mediastinal shift. No suspicious lymphadenopathy. Lungs and airways: There is a large right pleural effusion which causes complete collapse of the right lung. There are mild emphysematous changes in the left lung with trace left pleural effusion. No suspicious pulmonary lesion is seen. Air bronchograms are seen within the right lung. Upper abdomen: The subphrenic structures are normal. Musculoskeletal: Multilevel sclerotic lesions are seen throughout the spine. Multilevel degenerative changes of the spine. No compression fracture. IMPRESSION: 1. Large right pleural effusion causing complete collapse of the right lung and right to left mediastinal shift. 2. Small left pleural effusion. 3. Multiple sclerotic lesions seen throughout the spine. Recommend correlation with nuclear medicine bone scan. Dictated by: Dictated on workstation # [id number] Dict: 07/25/211649 Trans: 07/25/211657 [facility] [id number] Interpreted by: MARCO HASSAN DO Electronically signed by: MARCO HASSAN DO 07/25/211657 Assessment/Plan Assessment/Plan Admission Diagonsis Respiratory insufficiency due to large R pleural effusion causing complete lung atelectasis and mediastinal shift to left. Assessment/Plan Right sided pleural effusion with complete lung atelectasis and mediastinal shift to left. Continue providing 2L O2 on nasal canula. Perform thoracentesis to remove fluid. send for culture, check bacterial, fungal send for cytology, check for abnormal cells. culture sputum, start antibiotics if culture positive. continue fluids. Provide breathing treatment prn. Provide medication for pain prn. will continue to follow. ANAYELI WRIGHT DO 07/26/21 1343: History of Present Illness History of Present Illness Time Seen by Provider: 11:46 History of Present Illness Surgery asked to consult regarding pleural effusion. HPI per ED: Patient ER by private conveyance with chief complaint for the past week or so she has been having worsening shortness of breath cough without fever or chills. Diagnosed outpatient and treated with Augmentin which she completed a course of today. She is not feeling any better. She states he has a history of COPD smokes about a pack of cigarettes per day and went to the ER at [place]. There she was diagnosed with a complete right lung pleural effusion and collapse of the right lung. She was offered admission which she adamantly declined. She ended up going AGAINST MEDICAL ADVICE and after speaking with her family and still being short of breath she decided to come into the ER to be admitted today. She does not require supplemental oxygen at baseline however she has oxygen sats of 86 to 88% on ambulating into the room. Uses marijuana occasionally and states her last use of methamphetamines was about 2 months ago. When I spoke to pt she was having SOB with speech and tachypnic/hard to catch her breath. She does report pain in right chest. Allergies and Home Medications Allergies Coded Allergies: clindamycin (Verified Allergy, Unknown, Vomiting; Dizziness, 07/25/21) iodine (Verified Allergy, Unknown, 02/12/19) diphenhydramine (Verified Adverse Reaction, Unknown, eyes water, 02/12/19) Patient Home Medication List Home Medication List Reviewed: Yes Albuterol Sulfate (Proair Hfa) 1 Puff Puff, 2 PUFF IH Q4H PRN for SHORTNESS OF BREATH, (Reported) Entered as Reported by: MATT BUSH on 07/26/211043 Last Action: Reviewed Alprazolam (Alprazolam) 1 Mg Tablet, 1 MG PO TID, (Reported) Entered as Reported by: MARILEE KHANNA on 07/26/21742 Last Action: Reviewed Amitriptyline HCl (Amitriptyline HCl) 50 Mg Tablet, 50-100 MG PO HS, (Reported) Entered as Reported by: MATT BUSH on 07/26/211043 Last Action: Reviewed Aspirin (Aspirin EC) 81 Mg Tablet.dr, 81 MG PO DAILY, (Reported) Entered as Reported by: MATT BUSH on 07/26/211043 Last Action: Reviewed Fluticasone/Umeclidin/Vilanter (Trelegy Ellipta 200-62.5-25) 1 Each Blst.w.dev, 1 INH INH DAILY, (Reported) Entered as Reported by: MARILEE KHANNA on 07/26/21742 Last Action: Reviewed Gabapentin (Gabapentin) 600 Mg Tablet, 600 MG PO TID, (Reported) Entered as Reported by: MARILEE KHANNA on 07/26/21742 Last Action: Reviewed Methocarbamol (Methocarbamol) 750 Mg Tablet, 750 MG PO BID, (Reported) Entered as Reported by: MARILEE KHANNA on 07/26/21742 Last Action: Reviewed Montelukast Sodium (Montelukast Sodium) 10 Mg Tablet, 10 MG PO DAILY, (Reported) Entered as Reported by: MATT BUSH on 07/26/21 1044 Last Action: Reviewed Pantoprazole Sodium (Pantoprazole Sodium) 40 Mg Tablet.dr, 40 MG PO DAILY, (Reported) Entered as Reported by: MARILEE KHANNA on 07/26/21742 Last Action: Reviewed Propranolol HCl (Propranolol HCl) 20 Mg Tablet, 20 MG PO TID, (Reported) Entered as Reported by: MARILEE KHANNA on 07/26/21742 Last Action: Reviewed Sertraline HCl (Sertraline HCl) 50 Mg Tablet, 50 MG PO DAILY, (Reported) Entered as Reported by: MARILEE KHANNA on 07/26/21742 Last Action: Reviewed Discontinued Medications Hydrocodone Bit/Acetaminophen (Lortab 5 Mg Tablet) 1 Tab Tab, 1 EACH PO Q6H PRN for PAIN-MODERATE Discontinued Reason: Duplicate Order Prescribed by: SKYLAR ROSE on 02/12/19 123 Last Action: Discontinued Ondansetron (Ondansetron Odt) 4 Mg Tab.rapdis, 4 MG PO Q6H PRN for NAUSEA/VOMITING Discontinued Reason: No Longer Taking Prescribed by: DUKE BHATIA on 12/03/191615 Last Action: Discontinued Potassium Chloride (Potassium Chloride) 20 Meq Tab.er.prt, 20 MEQ PO DAILY Discontinued Reason: No Longer Taking Prescribed by: DUKE BHATIA on 12/03/191615 Last Action: Discontinued Risperidone (Risperidone) 0.5 Mg Tablet, 0.5 MG PO DAILY, (Reported) Discontinued Reason: No Longer Taking Entered as Reported by: MARILEE KHANNA on 07/26/21742 Last Action: Discontinued Sulfamethoxazole/Trimethoprim (Bactrim Ds Tablet) 1 Each Tablet, 1 EACH PO BID Discontinued Reason: No Longer Taking Prescribed by: SKYLAR ROSE on 02/12/19 123 Last Action: Discontinued Past Bmfjsdq-Zgivxq-Msqwge Hx Patient Social History Drug of Choice: Recent marijuana use, history of meth use. Smoking Status: Current Everyday Smoker Type Used: Cigarettes (Smoked 1pk since age 10.) Substance type: Methamphetamine Seasonal Allergies Seasonal Allergies: Yes Surgeries History of Surgeries: Yes Surgeries: Section, Gallbladder, Hysterectomy Respiratory History of Respiratory Disorde: Yes Respiratory Disorders: Asthma, COPD Cardiovascular History of Cardiac Disorders: Yes Cardiac Disorders: High Cholesterol Neurological Neurological Disorders: Neuropathy, Stroke Genitourinary History of Genitourinary Disor: No Gastrointestinal History of Gastrointestinal Di: No Musculoskeletal History of Musculoskeletal Dis: Yes Musculoskeletal Disorders: Chronic Back Pain Endocrine History of Endocrine Disorders: No HEENT History of HEENT Disorders: No Cancer History of Cancer: No Psychosocial History of Psychiatric Problem: Yes Behavioral Health Disorders: Anxiety, Depression Family Medical History Significant Family History: Cancer (Father from pancreatic cancer, age unknown.) Review of Systems-General Constitutional: fever, malaise, weakness EENTM: No hearing loss, No vision loss, No epistaxis Respiratory: cough, dyspnea on exertion, phlegm, short of breath Cardiovascular: chest pain (States it is from breathing issues and coughing.); No palpitations Gastrointestinal: No abdominal pain, No diarrhea, No hematemesis, No loss of appetite, No melena Genitourinary: No dysuria, No frequency, No hematuria Musculoskeletal: back pain, muscle pain (From fatigue due to symptoms.), muscle stiffness (From fatigue due to symptoms.) Skin: No change in color; dryness; No pruritus Psychiatric/Neurological: Headache; Denies Numbness, Denies Paresthesia Physical Exam-General Problems Physical Exam General Appearance: moderate distress, thin Eyes: Bilateral Eye PERRL, Bilateral Eye EOMI HEENT: pharynx normal; No scleral icterus (R), No scleral icterus (L) Neck: full range of motion, normal inspection; No carotid bruit Respiratory: respiratory distress, decreased breath sounds (basically none on the Right side ), accessory muscle use, crackles (Left side) Cardiovascular: regular rate, rhythm, no murmur Gastrointestinal: normal bowel sounds, non tender, soft, no organomegaly, no pulsatile mass Back: no CVA tenderness, other (Lower back pain on palpation.) Extremities: normal range of motion, non-tender, no calf tenderness Neurologic/Psychiatric: no motor/sensory deficits, alert, normal mood/affect, oriented x 3 Skin: normal color, warm/dry Lymphatic: no adenopathy (cervical, axillary) Assessment/Plan Assessment/Plan Assessment/Plan Acute on Chronic Respiratory Failure Right sided pleural effusion with complete lung atelectasis and mediastinal shift to left. Plan: O2 on nasal canula,thoracentesis to remove fluid and send for culture, check bacterial, fungal, send for cytology, check for abnormal cells. culture sputum, start antibiotics if culture positive, continue fluids, breathing treatment prn, pain meds as needed. Discussed procedure with pt; risks and complications not limited pain, bleeding, infection, scar, pneumothorax Supervisory-Addendum Brief Verification & Attestation Participated in pt care: history, MDM, physical Personally performed: exam, history, MDM, supervision of care Care discussed with: Medical Student Procedures: n/a Verification and Attestation of Medical Student E/M Service A medical student performed and documented this service. I then reviewed and verified all information documented by the medical student and made emndoza fications to such information, when appropriate. I personally performed a physical exam, medical decision making and then discussed any differences between the notes and made revisions as necessary to create one note. Anayeli Wright , 07/26/21 , 13:46 ANA ARIAS Jul 26, 2021 07:34 ANAYELI WRIGHT DO Jul 26, 2021 13:43
[2021-07-26] MEDS ORDERED: PANT40TA52 PO (07:43)
[2021-07-26] MEDS ORDERED: GBPN600T PO (07:43)
[2021-07-26] MEDS ORDERED: METH-732 PO (07:43)
[2021-07-26] MEDS ORDERED: SERT-413 PO (07:43)
[2021-07-26] MEDS ORDERED: RISP0.5T65 PO (07:43)
[2021-07-26] MEDS ORDERED: PROP20TA5 PO (07:43)
[2021-07-26] MEDS ORDERED: FLUT1BLS15 INH (07:43)
[2021-07-26] MEDS ORDERED: ALPR1TAB7 PO (07:43)
[2021-07-26] MEDS: LACTATED RINGERS 1,000 ML IV SCH (07:55)
[2021-07-26] MEDS ORDERED: RT-ALBUTEROL/IPRATROPIUM 3 ML (DUONEB) VIAL INH PRN (08:45)
[2021-07-26 08:47] VITALS: BP 118/86
[2021-07-26] MEDS: VASOPRESSIN INJECTION 20 UNIT in NS (IVPB) 100 ML IV SCH ×2 (08:47→20:02)
--- NOTE | 2021-07-26 08:49 | Diagnostic Imaging Report ---
Portable erect AP chest at 540 hours. INDICATION: Pneumonia. FINDINGS: The appearance of the chest has worsened considerably since the prior exam of 03/22/2020 as the right hemithorax is now completely opacified by atelectasis/infiltrate and fluid. The mediastinum and the heart also seems slightly shifted to the left. There may also be a small amount of pneumonia/atelectasis in left perihilar region. The left lung is otherwise clear. The heart seems stable in size. The mediastinum is not widened. The osseous structures are intact. IMPRESSION: The appearance of the chest has worsened considerably since the prior exam as there is now near complete opacification of the right hemithorax by atelectasis/infiltrate and fluid. CT of the chest would be recommended for further study. Dictated by: Dictated on workstation # [id number]
--- NOTE | 2021-07-26 08:58 | Tele-ICU Progress Note ---
Subjective Date Seen by a Provider: Jul 26, 2021 Time Seen by a Provider: 08:58 Sepsis Event Evaluation Height, Weight, BMI Height: 5'2.00" Weight: 160lbs. oz. 72.842582bj; 22.57 BMI Method:Stated Focused Exam Lactate Level 07/25/21 20:10: Lactic Acid Level 2.14*H 07/25/21 22:25: Lactic Acid Level 1.95 Exam Exam Patient acknowledged, consented, and participated in this virtual visit which was conducted using real time audio/video Vital Signs Date Time Temp Pulse Resp B/P (MAP) Pulse Ox O2 Delivery O2 Flow Rate FiO2 07/26/21 08:47 93 118/86 07/26/21 07:44 36.1 07/26/21 07:00 93 07/26/21 06:00 88 10 118/86 96 Nasal Cannula 2.00 07/26/21 05:00 90 10 108/83 95 Nasal Cannula 2.00 07/26/21 04:00 Nasal Cannula 2.00 07/26/21 04:00 92 12 125/93 97 Nasal Cannula 2.00 07/26/21 03:00 88 11 127/96 94 Nasal Cannula 2.00 07/26/21 02:00 90 21 115/83 96 Nasal Cannula 2.00 07/26/21 02:00 36.0 07/26/21 01:00 86 13 104/82 94 Nasal Cannula 2.00 07/26/21 01:00 86 07/26/21 00:00 Nasal Cannula 2.00 07/26/21 00:00 89 38 127/88 96 Nasal Cannula 2.00 07/25/21 23:00 86 14 112/78 95 Nasal Cannula 2.00 07/25/21 22:00 87 15 119/77 97 Nasal Cannula 2.00 07/25/21 21:45 96 16 125/90 93 Nasal Cannula 2.00 07/25/21 21:30 96 20 130/99 88 Nasal Cannula 2.00 07/25/21 21:15 96 30 123/102 94 Nasal Cannula 2.00 07/25/21 21:11 Nasal Cannula 2.00 07/25/21 21:01 97 07/25/21 21:00 86 18 121/91 92 Nasal Cannula 2.00 07/25/21 21:00 36.4 07/25/21 20:35 36.8 94 16 112/92 94 Nasal Cannula 2.00 07/25/21 19:43 36.9 95 20 130/103 (112) 96 Nasal Cannula 2.00 07/25/21 19:43 96 Nasal Cannula 2.00 07/25/21 19:43 Nasal Cannula 2.00 I & O 07/26/21 07:00 Intake Total 600 ml Output Total 1 ml Balance 599 ml Height & Weight Height: 5'2.00" Weight: 160lbs. oz. 72.512645is; 22.57 BMI Method:Stated General Appearance: Cachetic Capillary Refill: Less Than 3 Seconds Peripheral Pulses: 2+ Dorsalis Pedis (R); 1+ Left Dors-Pedis (L) (See free text.); 2+ Radial Pulses (R), 2+ Radial Pulses (L) Gastrointestinal: normal bowel sounds, non tender, soft, no organomegaly, no pulsatile mass Results Lab Laboratory Tests 07/26/21 04:45 Assessment/Plan Assessment/Plan (Tele-ICU Physician , Progress Note ) Available chart/ vitals / labs / Images reviewed Video assessment done using teleICU camera, rest of exam as per RN Discussed with RN , EXAM PER RN Events overnight : Afebrile FiO2 - 96% on 2 LPM NC. I/O = Drips: Pressors: , hemodynamically stable Consultants: sx Hospital course: 07/25 - to ICU with espiratory insufficiency due to large R pleural effusion , 96% on 2 LPM NC. A/P RIGHT large pleural effusion causing complete lung atelectasis and mediastinal shift to left ( CT 07/25 - clinically High suspicion for malignancy: - Sx consullted for thora Acute respiratory insufficiency due to pleural effusion - follow after thora Possible Left PNA vs atelectasis ( covid neg 07/25 - empiric abx started 07/25 - Cefepime and vancomycin. 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 Discussed with RN to reach out if any questions or concerns A total of 31 minutes of critical care time was devoted to this patient today, required to treat and/or prevent further deterioration of critical care condition ( as above) . MAYCOL OWENS MD Jul 26, 2021 08:58
[2021-07-26] MEDS ORDERED: AMIT50TA3 PO (10:44)
[2021-07-26] MEDS ORDERED: ASPI-1238 PO (10:44)
[2021-07-26] MEDS ORDERED: MONT10TA32 PO (10:44)
[2021-07-26] MEDS ORDERED: RT-ALBUINH IH (10:44)
[2021-07-26] MEDS: inSUlin ASPART (NovoLOG) 1 UNIT/0.01 ML (CHARGE PER UNIT) SC SCH ×3 (11:09→21:14)
--- NOTE | 2021-07-26 11:23 | History & Physical ---
MATEOSHIVANI MED STUDENT 07/26/21 1123: History of Present Illness History of Present Illness Reason for visit/HPI CC: SOB, cough HPI: Trixie is a 51yo female admitted from ED to ICU for acute respiratory failure. She is a poor historian due to conversational dyspnea. She states her symptoms began 2mos ago and worsened until she was finally seen in the clinic a week ago. She was started on Augmentin and finished her course yesterday with no improvement of her symptoms, causing her to present to the ED. CXR and CT chest revealed a massive R pleural effusion. Significant hx of COPD, HTN, 40pack/year smoking history, methamphetamine use(quit 1yr ago). Complaint of mid-sternal 5/10 chest pain/discomfort. Only able to speak in short phrases due to dyspnea. Denies N/V, abd pain. Date of Admission Jul 25, 2021 at 20:15 Date Seen by a Provider: Jul 26, 2021 Time Seen by a Provider: 08:10 Attending Physician Miriam Sanchez DO Admitting Physician Raúl Ross DO Consult Allergies and Home Medications Allergies Coded Allergies: iodine (Verified Allergy, Unknown, 02/12/19) clindamycin (Verified Adverse Reaction, Mild, Vomiting; Dizziness, 07/26/21) diphenhydramine (Verified Adverse Reaction, Unknown, eyes water, 02/12/19) Patient Home Medication List Home Medication List Reviewed: Yes Albuterol Sulfate (Proair Hfa) 1 Puff Puff, 2 PUFF IH Q4H PRN for SHORTNESS OF BREATH, (Reported) Entered as Reported by: MATT BUSH on 07/26/211043 Last Action: Held Alprazolam (Alprazolam) 1 Mg Tablet, 1 MG PO TID, (Reported) Entered as Reported by: MARILEE KHANNA on 07/26/21 0743 Last Action: Continued Amitriptyline HCl (Amitriptyline HCl) 50 Mg Tablet, 50-100 MG PO HS, (Reported) Entered as Reported by: MATT BUSH on 07/26/211043 Last Action: Continued Aspirin (Aspirin EC) 81 Mg Tablet.dr, 81 MG PO DAILY, (Reported) Entered as Reported by: MATT BUSH on 07/26/211043 Last Action: Held Fluticasone/Umeclidin/Vilanter (Trelegy Ellipta 200-62.5-25) 1 Each Blst.w.dev, 1 INH INH DAILY, (Reported) Entered as Reported by: MARILEE KHANNA on 07/26/21742 Last Action: Converted Gabapentin (Gabapentin) 600 Mg Tablet, 600 MG PO TID, (Reported) Entered as Reported by: MARILEE KHANNA on 07/26/21742 Last Action: Continued Methocarbamol (Methocarbamol) 750 Mg Tablet, 750 MG PO BID, (Reported) Entered as Reported by: MARILEE KHANNA on 07/26/21742 Last Action: Continued Montelukast Sodium (Montelukast Sodium) 10 Mg Tablet, 10 MG PO DAILY, (Reported) Entered as Reported by: MATT BUSH on 07/26/211043 Last Action: Continued Pantoprazole Sodium (Pantoprazole Sodium) 40 Mg Tablet.dr, 40 MG PO DAILY, (Reported) Entered as Reported by: MARILEE KHANNA on 07/26/21742 Last Action: Continued Propranolol HCl (Propranolol HCl) 20 Mg Tablet, 20 MG PO TID, (Reported) Entered as Reported by: MARILEE KHANNA on 07/26/21742 Last Action: Continued Sertraline HCl (Sertraline HCl) 50 Mg Tablet, 50 MG PO DAILY, (Reported) Entered as Reported by: MARILEE KHANNA on 07/26/21742 Last Action: Continued Discontinued Medications Hydrocodone Bit/Acetaminophen (Lortab 5 Mg Tablet) 1 Tab Tab, 1 EACH PO Q6H PRN for PAIN-MODERATE Discontinued Reason: Duplicate Order Prescribed by: SKYLAR ROSE on 02/12/19 1233 Last Action: Discontinued Ondansetron (Ondansetron Odt) 4 Mg Tab.rapdis, 4 MG PO Q6H PRN for NAUSEA/VOMI TING Discontinued Reason: No Longer Taking Prescribed by: DUKE BHATIA on 12/03/191615 Last Action: Discontinued Potassium Chloride (Potassium Chloride) 20 Meq Tab.er.prt, 20 MEQ PO DAILY Discontinued Reason: No Longer Taking Prescribed by: DUKE BHATIA on 12/03/191615 Last Action: Discontinued Risperidone (Risperidone) 0.5 Mg Tablet, 0.5 MG PO DAILY, (Reported) Discontinued Reason: No Longer Taking Entered as Reported by: MARILEE KHANNA on 07/26/21 0743 Last Action: Discontinued Sulfamethoxazole/Trimethoprim (Bactrim Ds Tablet) 1 Each Tablet, 1 EACH PO BID Discontinued Reason: No Longer Taking Prescribed by: SKYLAR ROSE on 02/12/19 1233 Last Action: Discontinued Past Susvdul-Pvsqfu-Xylxrt Hx Patient Social History Tobacco Use?: Yes Tobacco type used: Cigarettes Smoking Status: Current Everyday Smoker Smokeless Tobacco Frequency: Current Everyday User (1 pack) Use of E-Cig and/or Vaping dev: No Substance use?: Yes Substance type: Marijuana Substance frequency: Once in a while Alcohol Use?: Yes Alcohol type: Beer Alcohol Frequency: Once in a while Pt feels they are or have been: No Immunizations Up To Date First/Initial COVID19 Vaccinat: 12/03/20 Second COVID19 Vaccination Delta: 01/15/21 Tetanus Booster (TDap): Unknown Hepatitis A: No Hepatitis B: No Seasonal Allergies Seasonal Allergies: No Current Status status: No status: No Advance Directives: No Communicates: Verbally Primary Language: Belizean Preferred Spoken Language: Belizean Is interpretation needed?: No Sensory deficits: Hearing impairment Past Medical History Surgeries: Section, Gallbladder, Hysterectomy Asthma, COPD High Cholesterol Neuropathy, Stroke Chronic Back Pain Blood Disorders: No Family Medical History Cancer (Father from pancreatic cancer, age unknown.) Review of Systems ROS-Unable to Obtain: limited d/t dyspnea Constitutional: No chills, No fever; weakness, weight loss (reports 30-40lb weight loss over past 2mos) EENTM: No hearing loss, No vision loss Respiratory: cough, dyspnea on exertion; No hemoptysis; orthopnea, phlegm, short of breath Cardiovascular: chest pain (mid chest, substernal); No edema, No palpitations Gastrointestinal: No abdominal pain, No constipation, No diarrhea Genitourinary: No decreased output, No dysuria, No frequency, No hematuria Musculoskeletal: No back pain, No joint pain, No muscle pain Skin: No change in hair/nails, No lesions, No rash Psychiatric/Neurological: Denies Anxiety, Denies Headache, Denies Numbness, Denies Paresthesia, Denies Tingling All Other Systems Reviewed Negative Unless Noted: Yes Physical Exam Vital Signs Vital Signs - First Documented 07/25/21 19:43 Temp 36.9 Pulse 95 Resp 20 B/P (MAP) 130/103 (112) Pulse Ox 96 O2 Delivery Nasal Cannula O2 Flow Rate 2.00 Capillary Refill : Less Than 3 Seconds Height, Weight, BMI Height: 5'2.00" Weight: 160lbs. oz. 72.086446nh; 22.57 BMI Method:Stated General Appearance: Chronically ill, Moderate Distress (shallow, labored breathing, slightly lethargic), Thin Eyes: Bilateral Eye Normal Inspection, Bilateral Eye PERRL, Bilateral Eye EOMI HEENT: PERRL/EOMI, Normal ENT Inspection, Pharynx Normal Neck: Full Range of Motion, Normal Inspection, Non Tender, Supple Respiratory: Respiratory Distress, Other (absent breath sounds R lung gilmore, diminished/coarse breath sounds L lung g[place], productive cough, shallow/labored breathing, 2LNC) Cardiovascular: Regular Rate, Rhythm, No Edema, No JVD, No Murmur, Normal Peripheral Pulses Gastrointestinal: Normal Bowel Sounds, Non Tender, Soft Rectal: Deferred Back: Normal Inspection, No CVA Tenderness, No Vertebral Tenderness Extremity: Normal Capillary Refill, Normal Inspection, Non Tender, No Calf Tenderness, No Pedal Edema Neurologic/Psychiatric: Alert, Oriented x3, No Motor/Sensory Deficits, Other (anxious, no focal defects) Skin: Warm/Dry, Pallor Lymphatic: No Adenopathy Assessment/Plan Assessment and Plan Respiratory insufficiency, massive R pleural effusion, suspected pneumonia COPD CXR, CT chest 07/25: massive R pleural effusion with mediastinal shift R->L, sclerotic spinal lesions Empiric Abx; Cefepime, Vanc General surgery consult; thoracentesis Telepulmonology consult; likely malignant cause, bronchoschopy or CT guided needle biopsy EICU consult Monitor VS, respiratory status, increasing O2 needs HTN Anxiety Tobaccoism Nicotine patch MIRIAM SANCHEZ DO 07/27/21 0611: History of Present Illness History of Present Illness Reason for visit/HPI CC: SOB HPI: This is a 51yoWF who smokes and takes illicit drugs who presented to the ER with SOB found to have found to have a complete white out on her CXR. She was recommended to be admitted at [facility] yesterday but she left AMA and then returned due to SOB. She had completed Augmentin from the clinic and she has had a 40lb weight loss in the last 4 months. She had a large right sided pleural effusion, Dr. Tsai has been consulted for thorocentesis. Home meds have been reviewed and will restart those if able. She remains on 2 liters of oxygen and has conversational dyspnea. Allergies and Home Medications Allergies Coded Allergies: iodine (Verified Allergy, Unknown, 02/12/19) clindamycin (Verified Adverse Reaction, Mild, Vomiting; Dizziness, 07/26/21) diphenhydramine (Verified Adverse Reaction, Unknown, eyes water, 02/12/19) Patient Home Medication List Home Medication List Reviewed: Yes Albuterol Sulfate (Proair Hfa) 1 Puff Puff, 2 PUFF IH Q4H PRN for SHORTNESS OF BREATH, (Reported) Entered as Reported by: MATT BUSH on 07/26/211043 Last Action: Held Alprazolam (Alprazolam) 1 Mg Tablet, 1 MG PO TID, (Reported) Entered as Reported by: MARILEE KHANNA on 07/26/21742 Last Action: Continued Amitriptyline HCl (Amitriptyline HCl) 50 Mg Tablet, 50-100 MG PO HS, (Reported) Entered as Reported by: MATT BUSH on 07/26/211043 Last Action: Continued Aspirin (Aspirin EC) 81 Mg Tablet.dr, 81 MG PO DAILY, (Reported) Entered as Reported by: MATT BUSH on 07/26/211043 Last Action: Held Fluticasone/Umeclidin/Vilanter (Trelegy Ellipta 200-62.5-25) 1 Each Blst.w.dev, 1 INH INH DAILY, (Reported) Entered as Reported by: MARILEE KHANNA on 07/26/21742 Last Action: Converted Gabapentin (Gabapentin) 600 Mg Tablet, 600 MG PO TID, (Reported) Entered as Reported by: MARILEE KHANNA on 07/26/21742 Last Action: Continued Methocarbamol (Methocarbamol) 750 Mg Tablet, 750 MG PO BID, (Reported) Entered as Reported by: MARILEE KHANNA on 07/26/21742 Last Action: Continued Montelukast Sodium (Montelukast Sodium) 10 Mg Tablet, 10 MG PO DAILY, (Reported) Entered as Reported by: MATT BUSH on 07/26/211043 Last Action: Continued Pantoprazole Sodium (Pantoprazole Sodium) 40 Mg Tablet.dr, 40 MG PO DAILY, (Reported) Entered as Reported by: MARILEE KHANNA on 07/26/21742 Last Action: Continued Propranolol HCl (Propranolol HCl) 20 Mg Tablet, 20 MG PO TID, (Reported) Entered as Reported by: MARILEE KHANNA on 07/26/21742 Last Action: Continued Sertraline HCl (Sertraline HCl) 50 Mg Tablet, 50 MG PO DAILY, (Reported) Entered as Reported by: MARILEE KHANNA on 07/26/21742 Last Action: Continued Discontinued Medications Hydrocodone Bit/Acetaminophen (Lortab 5 Mg Tablet) 1 Tab Tab, 1 EACH PO Q6H PRN for PAIN-MODERATE Discontinued Reason: Duplicate Order Prescribed by: SKYLAR ROSE on 02/12/19 123 Last Action: Discontinued Ondansetron (Ondansetron Odt) 4 Mg Tab.rapdis, 4 MG PO Q6H PRN for NAUSEA/VOMITING Discontinued Reason: No Longer Taking Prescribed by: DUKE BHATIA on 12/03/191615 Last Action: Discontinued Potassium Chloride (Potassium Chloride) 20 Meq Tab.er.prt, 20 MEQ PO DAILY Discontinued Reason: No Longer Taking Prescribed by: DUKE BHATIA on 12/03/191615 Last Action: Discontinued Risperidone (Risperidone) 0.5 Mg Tablet, 0.5 MG PO DAILY, (Reported) Discontinued Reason: No Longer Taking Entered as Reported by: MARILEE KHANNA on 07/26/21742 Last Action: Discontinued Sulfamethoxazole/Trimethoprim (Bactrim Ds Tablet) 1 Each Tablet, 1 EACH PO BID Discontinued Reason: No Longer Taking Prescribed by: SKYLAR ROSE on 02/12/19 123 Last Action: Discontinued Past Upsajvn-Icywou-Qmbqem Hx Patient Social History Marrital Status: single Employed/Student: unemployed Smoking Status: Current Everyday Smoker Past Medical History Anxiety, Depression Review of Systems Constitutional: see HPI, weakness EENTM: no symptoms reported Respiratory: cough, dyspnea on exertion, orthopnea, phlegm, short of breath Cardiovascular: chest pain (mid chest, substernal) Gastrointestinal: no symptoms reported Genitourinary: no symptoms reported Musculoskeletal: no symptoms reported Skin: no symptoms reported Psychiatric/Neurological: No Symptoms Reported All Other Systems Reviewed Negative Unless Noted: Yes Physical Exam General Appearance: Anxious, Chronically ill, Moderate Distress (shallow, labored breathing, slightly lethargic) Neck: Non Tender, Supple Respiratory: Accessory Muscle Use, Crackles, Decreased Breath Sounds, Respiratory Distress Cardiovascular: Tachycardia Gastrointestinal: Normal Bowel Sounds Neurologic/Psychiatric: Alert, Oriented x3, No Motor/Sensory Deficits, Normal Mood/Affect Assessment/Plan Assessment and Plan Assessment: Acute respiratory insufficiency Severe right-sided pleural effusion Bone spine lesion suspecting some sort of neoplastic process Meth use Smoker 40 pound weight loss Anxiety Plan: Thoracentesis Oxygen Antibiotics empirically Problems: (1) Acute respiratory failure with hypoxemia Status: Acute (2) Pleural effusion on right Status: Acute Admission Diagnosis Admission Status: Inpatient Order (span 2 midnights) Reason for Inpatient Admission: Pleural effusion with severe respiratory insufficiency Supervisory-Addendum Brief Verification & Attestation Participated in pt care: history, MDM, physical Personally performed: exam, history, MDM, supervision of care Care discussed with: Medical Student Procedures: n/a Results interpretation: Verified all documentation Verification and Attestation of Medical Student E/M Service A medical student performed and documented this service in my presence. I reviewed and verified all information documented by the medical student and made modifications to such information, when appropriate. I personally performed the physical exam and medical decision making. Miriam Sanchez, Jul 27, 2021,06:11 SHIVANI GALINDO MED STUDENT Jul 26, 2021 11:23 MIRIAM SANCHEZ DO Jul 27, 2021 06:11
[2021-07-26] MEDS: morphine INJ 4 MG/ML 1 ML (VIAL/SYRINGE) IVP PRN ×2 (11:40→20:06)
--- NOTE | 2021-07-26 12:42 | Diagnostic Imaging Report ---
INDICATION: Post thoracentesis. FINDINGS: Upright portable chest shows the heart size and vascularity to be upper normal. There are interstitial infiltrates present. There has been near complete removal of the right-sided effusion since 07/26/2021 study. There is a faint nodular density seen in the right upper lobe. There is patchy infiltrate at the right lower lobe. IMPRESSION: Improving chest. No pneumothorax is seen. Recommend follow-up. Dictated by: Dictated on workstation # [id number]
[2021-07-26 13:18] LABS: GLUCOSE,BODY FLUID 130 MG/DL; TOTAL PROTEIN,BODY FLUID 3.8 G/DL
[2021-07-26] MEDS: guaiFENesin/DM (ROBITUSSIN DM) 10 ML UDC PO PRN ×2 (13:37→18:29)
--- NOTE | 2021-07-26 13:50 | Progress Note-Post Operative ---
Post-Operative Progess Note Surgeon (s)/Breakdown Man (s) Surgeon ANAYELI WRIGHT DO Breakdown Man: none Pre-Operative Diagnosis Right side pleural effusion Post-Operative Diagnosis same pending path Procedure & Operative Findings Date of Procedure 07/26/21 Procedure Performed/Findings Thoracentesis with US guidance PROCEDURE NOTE: After informed consent was obtained, the patient was in her bed in Cardiac step down; sitting on edge of bed, draped over her table. US confirmed pleural effusion and marked the spot most likely to drain all the fluid. She was sterilely prepped and draped in normal fashion. At site of US marking then infiltrated local lidocaine and then down toward the rib and over the top of the rib. Next made a stab incision with #11 blade and then carefully advanced the [id number] needle. Going over the top of the rib to stay away from vessels and nerves. Immediately got a good flash of yellow straw colored fluid with scant (1-2 drops of blood), removed the needle. Advanced the catheter over the needle into the pleural cavity. At this point, we then hooked up to suction Vaccutainer and got about 3850ml out. She tolerated the procedure. Sponge, instrument and needle count correct at the end of the case. Anesthesia Type local lidocaine Estimated Blood Loss Estimated blood loss (mL): less than 5ml Specimens/Packing Specimens Removed pleural fluid ANAYELI WRIGHT DO Jul 26, 2021 13:50
[2021-07-26 14:10] LABS: BODY FLUID COLOR PALE YELLOW; BODY FLUID SOURCE PLEURAL
[2021-07-26 14:11] LABS: BF OTHER CELLS 74 %; BODY FLUID APPEARENCE MKD CLDY; BODY FLUID RBC COUNT 12500 /uL; BODY FLUID WBC TOTAL COUNT 400 /uL; LYMPHOCYTES,BODY FLUID 25 %
[2021-07-26] MEDS: METHOCARBAMOL 750 MG (ROBAXIN) TAB PO SCH (20:05)
[2021-07-26] MEDS: ALPRAZolam 1 MG (XANAX) TAB PO SCH (20:05)
[2021-07-26] MEDS: PROPRANOLOL 20 MG (INDERAL) TABLET PO SCH (20:05)
[2021-07-26] MEDS: GABAPENTIN 600 MG (NEURONTIN) TAB PO SCH (20:05)
[2021-07-26] MEDS: RT--FLUTICASONE/SALMETEROL 232-14 (AIRDUO RespiCLICK) IH SCH (20:49)
[2021-07-26] MEDS ORDERED: AMITRIPTYLINE 50 MG (ELAVIL) TAB PO PRN (21:00)
[2021-07-26] MEDS ORDERED: MONTELUKAST 10 MG (SINGULAIR) TAB PO SCH (21:00)
[2021-07-26] MEDS: NOREPINEPHRINE 8 MG/250 ML 250 ML IV SCH (21:14)
[2021-07-27] MEDS: VANCOMYCIN 750 MG/NS 250 ML IVPB IV SCH ×2 (03:01)
[2021-07-27] MEDS: HYDROcodone/APAP 5 MG/325 MG (LORTAB) TAB PO PRN ×2 (03:02→11:16)
[2021-07-27] MEDS: CEFEPIME 1,000 MG/SWFI 10 ML IV PUSH IV SCH ×4 (03:56→10:42)
[2021-07-27 05:33] LABS: BASOPHILS % (AUTO) 1 % (0-10); EOSINOPHILS # (AUTO) 0.2 10^3/uL (0.0-0.3); EOSINOPHILS % (AUTO) 2 % (0-10); HEMATOCRIT 40 % (35-52); HEMOGLOBIN 12.8 g/dL (11.5-16.0); LYMPHOCYTES % (AUTO) 23 % (12-44); MEAN CORPUSCULAR HEMOGLOBIN 29 pg (25-34); MEAN CORPUSCULAR HGB CONC 32 g/dL (32-36); MEAN CORPUSCULAR VOLUME 90 fL (80-99); MONOCYTES # (AUTO) 0.5 10^3/uL (0.0-1.0); MONOCYTES % (AUTO) 6 % (0-12); NEUTROPHILS # (AUTO) 5.8 10^3/uL (1.8-7.8); NEUTROPHILS % (AUTO) 69 % (42-75); PLATELET COUNT 238 10^3/uL (130-400); WHITE BLOOD COUNT 8.4 10^3/uL (4.3-11.0)
[2021-07-27 05:55] LABS: ALBUMIN 2.5 GM/DL (3.2-4.5); POTASSIUM 3.3 MMOL/L (3.6-5.0)
[2021-07-27 05:56] LABS: CALCIUM 7.9 MG/DL (8.5-10.1)
[2021-07-27 05:57] LABS: TOTAL PROTEIN 4.6 GM/DL (6.4-8.2)
[2021-07-27 05:59] LABS: BILIRUBIN,TOTAL 0.3 MG/DL (0.1-1.0)
[2021-07-27 06:00] LABS: PHOSPHORUS 3.4 MG/DL (2.3-4.7)
[2021-07-27 06:01] LABS: CREATININE SERUM 0.49 MG/DL (0.60-1.30)
[2021-07-27 06:04] LABS: MAGNESIUM 1.6 MG/DL (1.6-2.4)
[2021-07-27] MEDS: inSUlin ASPART (NovoLOG) 1 UNIT/0.01 ML (CHARGE PER UNIT) SC SCH ×2 (06:04→11:09)
[2021-07-27] MEDS: POTASSIUM CL 10MEQ/50ML IVPB 50 ML IV SCH (06:07)
[2021-07-27] MEDS: KCL 20 MEQ TAB (K-DUR) PO SCH (06:08)
[2021-07-27] MEDS: VASOPRESSIN INJECTION 20 UNIT in NS (IVPB) 100 ML IV SCH (06:08)
[2021-07-27] MEDS: MAGNESIUM 1 GM/100 ML IVPB 100 ML IV SCH ×3 (06:14→06:20)
--- NOTE | 2021-07-27 06:21 | Diagnostic Imaging Report ---
INDICATION: Pleural effusion. Portable AP view of chest is obtained with comparison made study of one day earlier. FINDINGS: There is continued opacification of the lower right hemithorax. There is blunting of both costophrenic sulci. Mild left basilar atelectasis and/or pneumonitis is also present. There is irregular nodule projecting over the upper lobe of the right lung without change. IMPRESSION: Basilar atelectasis and/or pneumonitis which is greater on the right. This is associated with probable mild pleural fluid. In addition, there is irregular nodule projecting over the right upper lobe. This could be infiltrate although pulmonary mass is not excluded. Continued short-term follow-up study and possible CT imaging may be of value. Dictated by: Dictated on workstation # [id number]
--- NOTE | 2021-07-27 07:42 | Progress Note - Surgery ---
ANA ARIAS 07/27/21 0742: Subjective Date Seen by a Provider: Jul 27, 2021 Time Seen by a Provider: 07:05 Subjective/Events-last exam Pt stable and resting. Still has some epigastric pain, states it occurs more when coughing. Patient breathing better but still struggles with taking breaths in. She had intermittent coughing throughout the night and did not sleep very well and had headaches off an on. She stated she has some muscle aches from laying in bed. Patient asking when she will go home. Denies V/N/D, dysuria, fever, chills, chest pain, palpitations, blood in stool, blood in urine, and lightheadedness. Review of Systems General: No Chills, No Night Sweats; Fatigue HEENT: Head Aches; No Visual Changes Pulmonary: Dyspnea, Cough Cardiovascular: No: Chest Pain, Palpitations, Lt Headedness Gastrointestinal: No: Nausea, Vomiting, Abdominal Pain, Diarrhea Genitourinary: No Dysuria, No Frequency Musculoskeletal: neck pain (from laying on bed), shoulder pain (from laying on bed) Neurological: No: Weakness, Numbness Focused Exam Lactate Level 07/25/21 20:10: Lactic Acid Level 2.14*H 07/25/21 22:25: Lactic Acid Level 1.95 Objective Exam Vital Signs Date Time Temp Pulse Resp B/P (MAP) Pulse Ox O2 Delivery O2 Flow Rate FiO2 07/27/21 06:00 68 13 106/63 89 Nasal Cannula 2.00 07/27/21 05:00 77 13 111/67 96 Nasal Cannula 2.00 07/27/21 04:00 77 17 99/60 93 Nasal Cannula 2.00 07/27/21 03:56 94 Nasal Cannula 2.00 07/27/21 03:55 36.7 Nasal Cannula 2.00 07/27/21 03:00 85 18 108/63 93 Nasal Cannula 2.00 07/27/21 02:00 75 36 105/63 97 Nasal Cannula 2.00 07/27/21 01:00 83 15 102/65 96 Nasal Cannula 2.00 07/27/21 01:00 83 07/27/21 00:18 93 Nasal Cannula 2.00 07/27/21 00:00 90 23 103/62 Nasal Cannula 2.00 07/26/21 23:00 85 30 93/54 89 Nasal Cannula 2.00 07/26/21 22:46 36.4 Nasal Cannula 2.00 07/26/21 22:00 88 14 106/70 97 Nasal Cannula 2.00 07/26/21 21:00 91 16 97/63 97 Nasal Cannula 2.00 07/26/21 20:50 94 Nasal Cannula 2.00 07/26/21 20:04 95 31 111/66 95 Nasal Cannula 2.00 07/26/21 20:00 95 Nasal Cannula 2.00 07/26/21 19:02 105 07/26/21 19:00 102 22 123/93 97 Nasal Cannula 2.00 07/26/21 19:00 36.6 Nasal Cannula 2.00 07/26/21 18:34 98 18 120/89 96 Nasal Cannula 2.00 07/26/21 17:00 104 17 110/80 94 Nasal Cannula 2.00 07/26/21 16:06 36.4 07/26/21 16:05 Nasal Cannula 2.00 07/26/21 16:00 100 19 106/69 96 Nasal Cannula 2.00 07/26/21 15:53 36.6 07/26/21 15:00 101 14 128/66 95 Nasal Cannula 2.00 07/26/21 14:00 92 10 111/96 96 Nasal Cannula 2.00 07/26/21 13:00 92 20 111/85 93 Nasal Cannula 2.00 07/26/21 12:58 95 07/26/21 12:35 Nasal Cannula 2.00 07/26/21 12:30 36.4 07/26/21 12:00 99 14 116/64 94 Nasal Cannula 2.00 07/26/21 11:00 101 15 108/92 96 Nasal Cannula 2.00 07/26/21 10:01 94 14 125/96 97 Nasal Cannula 2.00 07/26/21 10:00 95 15 125/96 96 Nasal Cannula 2.00 07/26/21 09:51 91 Nasal Cannula 2.00 07/26/21 09:00 94 17 117/82 97 Nasal Cannula 2.00 07/26/21 08:47 93 118/86 07/26/21 08:00 93 13 126/103 96 Nasal Cannula 2.00 07/26/21 07:48 Nasal Cannula 2.00 07/26/21 07:44 36.1 I & O 07/27/21 07:00 Intake Total 2050 ml Output Total 125 ml Balance 1925 ml Capillary Refill : Less Than 3 Seconds General Appearance: Anxious, Chronically ill, Moderate Distress (shallow, labored breathing, slightly lethargic) HEENT: PERRL/EOMI, Moist Mucous Membranes; No Scleral Icterus (L), No Scleral Icterus (R) Neck: Non Tender, Supple Respiratory: Accessory Muscle Use, Crackles, Decreased Breath Sounds (Increased sounds from yesterday but still decreased overall. ), Expiration (Shortened expiration), Inspiration (Shortened inspiration length.), Respiratory Distress Cardiovascular: Regular Rate, Rhythm, No Gallop, No Murmur, Tachycardia Peripheral Pulses: 2+ Dorsalis Pedis (R), 2+ Radial Pulses (R), 2+ Radial Pulses (L) Gastrointestinal: normal bowel sounds, non tender, soft, no pulsatile mass Extremity: Normal Capillary Refill, Normal Inspection, Non Tender, No Pedal Edema Neurologic/Psychiatric: Alert, Oriented x3, No Motor/Sensory Deficits, Normal Mood/Affect Skin: Warm/Dry; No Diaphoresis, No Jaundice; Pallor Lymphatic: No Adenopathy (cervical, axillary) Results Lab Laboratory Tests 07/26/21 10:32: Glucometer 120H 07/26/21 12:55: Body Fluid Source PLEURAL, Body Fluid Color PALE YELLOW, Body Fluid Appearance MKD CLDY, Body Fluid WBC 400, Body Fluid RBC [address]707, Body Fluid Polynuclear WBCs 1, Body Fluid Mononuclear WBCs 0, Body Fluid Lymphocytes 25, Body Fluid Eosinophils 0, Body Fluid Other Cells 74, Body Fluid Glucose 130, Body Fluid Total Protein 3.8 07/26/21 15:41: Glucometer 131H 07/26/21 19:46: Glucometer 119H 07/27/21 04:55: White Blood Count 8.4, Red Blood Count 4.45, Hemoglobin 12.8, Hematocrit 40, Mean Corpuscular Volume 90, Mean Corpuscular Hemoglobin 29, Mean Corpuscular Hemoglobin Concent 32, Red Cell Distribution Width 12.0, Platelet Count 238, Mean Platelet Volume 11.0, Immature Granulocyte % (Auto) 0, Neutrophils (%) (Auto) 69, Lymphocytes (%) (Auto) 23, Monocytes (%) (Auto) 6, Eosinophils (%) (Auto) 2, Basophils (%) (Auto) 1, Neutrophils # (Auto) 5.8, Lymphocytes # (Auto) 2.0, Monocytes # (Auto) 0.5, Eosinophils # (Auto) 0.2, Basophils # (Auto) 0.0, Immature Granulocyte # (Auto) 0.0, Sodium Level 140, Potassium Level 3.3L, Chloride Level 102, Carbon Dioxide Level 29, Anion Gap 9, Blood Urea Nitrogen 5L , Creatinine 0.49L, Estimat Glomerular Filtration Rate 133, BUN/Creatinine Ratio 10, Glucose Level 100, Calcium Level 7.9L, Corrected Calcium 9.1, Phosphorus Level 3.4, Magnesium Level 1.6, Total Bilirubin 0.3, Aspartate Amino Transf (AST/SGOT) 52H, Alanine Aminotransferase (ALT/SGPT) 56H, Alkaline Phosphatase 36 5H, Total Protein 4.6L, Albumin 2.5L Microbiology 07/25/21 MRSA Screen - Final, Complete MRSA not isolated 07/25/21 Blood Culture - Preliminary, Resulted No growth Meds Item Value Date Time Potassium Chloride 40 meq 07/27/21 1000 (K Dur Tablet) ONCE ONCE/PO Sertraline HCl 50 mg 07/27/21 0900 (Zoloft Tablet) DAILY/PO Pantoprazole 40 mg 07/27/21 0900 Sodium DAILY/PO (Protonix Tablet) Miscellaneous REMOVE NICOTINE PATCH 07/27/21 0859 (Patch Removal) DAILY@0859/TP Potassium Chloride 40 meq 07/27/21 0800 (K Dur Tablet) ONCE ONCE/PO Umeclidinium 1 INHALATION WITH AIRD... 07/27/21 0800 Sims DAILY@0800/IH 07/27/21 0751 (Incruse Ellipta Inhaler) Magnesium Sulfate/ 100 ml @ 100 mls/hr 07/27/21 0615 Dextrose Q1H/IV 07/27/21 0620 Salmeterol 1 INHALATION GIVE WITH... 07/26/21 2100 Xinafoate/ RTBID/IH 07/27/21 0750 Fluticasone (AIRDUO RespCLICK 232-14) Propranolol HCl 20 mg 07/26/21 2100 (Inderal Tablet) TID/PO 07/26/212004 Montelukast Sodium 10 mg 07/26/21 2100 (Singulair HS/PO 07/26/212004 Tablet) Methocarbamol 750 mg 07/26/21 2100 (Robaxin Tablet) BID/PO 07/26/212004 Gabapentin 600 mg 07/26/21 2100 (Neurontin TID/PO 07/26/212004 Capsule/Tablet) Amitriptyline HCl 50-100 07/26/212099 (Elavil Tablet) HS PRN/PO Alprazolam 1 mg 07/26/21 2100 (Xanax Tablet) TID/PO 07/26/212004 Insulin Aspart INSULIN SLIDING SCALE ... 07/26/21 1100 (NovoLOG (CHARGE ACHS/SC PER UNIT)) Nicotine 14 mg 07/26/21 0900 (Nicoderm Patch) DAILY/TD 07/25/21 214 Guaifenesin/ 10 ml 07/26/21 0845 Dextromethorphan Q4H PRN/PO 07/26/21 1829 (Robitussin Dm Syrup) Morphine Sulfate 2 mg 07/26/21 0845 (morphine Q2H PRN/IVP 07/26/212005 INJECTION) Albuterol/ 3 ml 07/26/21 0845 Ipratropium RTQ4HR PRN/INH 07/26/21 0951 (Duoneb Inhalation Solution) Potassium Chloride 50 ml @ 0 mls/hr 07/26/21 0600 Magnesium Sulfate/ 100 ml @ 0 mls/hr 07/26/21 0600 Dextrose DAILY@0600/IV Potassium Chloride 40 meq 07/26/21 0600 (K Dur Tablet) DAILY@0600/PO Vancomycin HCl 257.5 ml @ 250 mls/hr 07/26/21 0200 750 mg/Sodium Q8H/IV 07/27/21 0301 Chloride Cefepime HCl 1000 10 ml @ 200 mls/hr 07/25/21 2200 mg/Sterile Water Q6H/IV 07/27/21 0356 Vasopressin 20 101 ml @ 9.09 mls/hr 07/25/21 2145 unit/Sodium Q11H7M/IV Chloride Epinephrine HCl 4 252 ml @ 21.168 mls/hr 07/25/21 2145 mg/Sodium Chloride UD/IV Norepinephrine 250 ml @ 10.5 mls/hr 07/25/21 2145 Bitartrate [id number]/IV Lorazepam 0.5 mg 11/8/21 2145 (Ativan Q8H PRN/IV 07/26/21 0959 Injection) Acetaminophen/ 1 ea 07/25/212144 Hydrocodone Bitart Q6H PRN/PO 07/27/21 0302 (Lortab 5 Mg Tablet) Acetaminophen 650 mg 07/25/212129 (Tylenol Tablet) Q6H PRN/PO Ondansetron HCl 8 mg 07/25/212129 (Zofran Q6H PRN/IV Injection (Sdv)) Radiology [facility]. [place], [place] NAME: ANA CRISTINA CHERRY [facility] REC#: [id number] PT STATUS: ADM IN : 1970 PHYSICIAN: MAYCOL OWENS MD ADMIT DATE: 07/25/21/ICU Signed Date of Exam:07/27/21 CHEST 1 VIEW, AP/PA ONLY INDICATION: Pleural effusion. Portable AP view of chest is obtained with comparison made study of one day earlier. FINDINGS: There is continued opacification of the lower right hemithorax. There is blunting of both costophrenic sulci. Mild left basilar atelectasis and/or pneumonitis is also present. There is irregular nodule projecting over the upper lobe of the right lung without change. IMPRESSION: Basilar atelectasis and/or pneumonitis which is greater on the right. This is associated with probable mild pleural fluid. In addition, there is irregular nodule projecting over the right upper lobe. This could be infiltrate although pulmonary mass is not excluded. Continued short-term follow-up study and possible CT imaging may be of value. Dictated by: Dictated on workstation # [id number] Dict: 07/27/2118 Trans: 07/27/2134 [id number] Interpreted by: AURE AUGUST MD Electronically signed by: AURE AUGUST MD 07/27/2134 Assessment/Plan Assessment/Plan Assessment/Plan Acute on Chronic Respiratory Failure Right sided pleural effusion with complete lung atelectasis and mediastinal shift to left. Plan: Continue O2 on nasal canula, wait for culture and cytology from pleural fluid, continue fluids, breathing treatment prn, pain meds as needed. Plan to tx with antibiotics if culture positive, waiting on pleural fluid results. Possible repeat CT per radiology recommendations, XR results showed irregular nodule projecting over the right upper lobe. Radiology report stated, "This could be infiltrate although pul monary mass is not excluded." Will continue to follow. ANAYELI WRIGHT DO 07/27/21 1331: Subjective Time Seen by a Provider: 13:24 Subjective/Events-last exam Pt seen and examined, states she is breathing better and is getting sent home. Review of Systems General: No Chills, No Night Sweats; Fatigue Pulmonary: Dyspnea, Cough Cardiovascular: No: Chest Pain, Palpitations Gastrointestinal: No: Nausea, Vomiting, Abdominal Pain Objective Exam General Appearance: No Apparent Distress (No signs of respiratory distress at all), Chronically ill HEENT: PERRL/EOMI, Moist Mucous Membranes Respiratory: Crackles, Decreased Breath Sounds (Increased sounds from yesterday but still decreased overall. ), Expiration (Shortened expiration), Inspiration (Shortened inspiration length.) Cardiovascular: Regular Rate, Rhythm, No Murmur Gastrointestinal: non tender, soft, no organomegaly Assessment/Plan Assessment/Plan Assessment/Plan Acute on Chronic Respiratory Failure Right sided pleural effusion with complete lung atelectasis and mediastinal shift to left. Plan: Continue O2 on nasal canula, wait for culture and cytology from pleural fluid, continue fluids, breathing treatment prn, pain meds as needed. Supervisory-Addendum Brief Verification & Attestation Participated in pt care: history, MDM, physical Personally performed: exam, history, MDM, supervision of care Care discussed with: Medical Student Procedures: n/a Verification and Attestation of Medical Student E/M Service A medical student performed and documented this service. I then reviewed and ve rified all information documented by the medical student and made modifications to such information, when appropriate. I personally performed a physical exam, medical decision making and then discussed any differences between the notes and made revisions as necessary to create one note. Anayeli Wright , 07/27/21 , 13:31 ANA ARIAS Jul 27, 2021 07:42 ANAYELI WRIGHT DO Jul 27, 2021 13:31
[2021-07-27] MEDS: RT--FLUTICASONE/SALMETEROL 232-14 (AIRDUO RespiCLICK) IH SCH (07:50)
[2021-07-27] MEDS ORDERED: KCL 20 MEQ TAB (K-DUR) PO ONE ×2 (08:00→10:00)
[2021-07-27] MEDS ORDERED: UMECLIDINIUM BROMIDE (INCRUSE ELLIPTA) 7'S IH SCH (08:00)
[2021-07-27] MEDS ORDERED: TROUGH ORDER-PHARMACY XX ONE (08:30)
[2021-07-27] MEDS: GABAPENTIN 600 MG (NEURONTIN) TAB PO SCH ×2 (08:31→13:41)
[2021-07-27] MEDS: METHOCARBAMOL 750 MG (ROBAXIN) TAB PO SCH (08:31)
[2021-07-27] MEDS: PROPRANOLOL 20 MG (INDERAL) TABLET PO SCH ×2 (08:31→13:41)
[2021-07-27] MEDS: ALPRAZolam 1 MG (XANAX) TAB PO SCH ×2 (08:31→13:41)
[2021-07-27] MEDS: NICOTINE 14 MG (NICODERM) PATCH TD SCH (08:31)
[2021-07-27] MEDS: morphine INJ 4 MG/ML 1 ML (VIAL/SYRINGE) IVP PRN (08:50)
[2021-07-27] MEDS ORDERED: NICOTINE PATCH REMOVAL TP SCH (08:59)
[2021-07-27] MEDS ORDERED: SERTRALINE 50 MG (ZOLOFT) TABLET PO SCH (09:00)
[2021-07-27] MEDS ORDERED: PANTOPRAZOLE 40 MG (PROTONIX) TAB PO SCH (09:00)
[2021-07-27] MEDS ORDERED: VANCOMYCIN INJECTION 1,000 MG in NS (IVPB) 250 ML IV SCH (10:00)
--- NOTE | 2021-07-27 10:13 | Tele-ICU Progress Note ---
Subjective Date Seen by a Provider: Jul 27, 2021 Time Seen by a Provider: 10:13 Sepsis Event Evaluation Height, Weight, BMI Height: 5'2.00" Weight: 160lbs. oz. 72.018084jr; 22.57 BMI Method:Stated Focused Exam Lactate Level 07/25/21 20:10: Lactic Acid Level 2.14*H 07/25/21 22:25: Lactic Acid Level 1.95 Exam Exam Patient acknowledged, consented, and participated in this virtual visit which was conducted using real time audio/video Vital Signs Date Time Temp Pulse Resp B/P (MAP) Pulse Ox O2 Delivery O2 Flow Rate FiO2 07/27/21 07:51 36.4 07/27/21 07:51 94 Nasal Cannula 1.00 97 07/27/21 06:00 68 13 106/63 89 Nasal Cannula 2.00 07/27/21 05:00 77 13 111/67 96 Nasal Cannula 2.00 07/27/21 04:00 77 17 99/60 93 Nasal Cannula 2.00 07/27/21 03:56 94 Nasal Cannula 2.00 07/27/21 03:55 36.7 Nasal Cannula 2.00 07/27/21 03:00 85 18 108/63 93 Nasal Cannula 2.00 07/27/21 02:00 75 36 105/63 97 Nasal Cannula 2.00 07/27/21 01:00 83 15 102/65 96 Nasal Cannula 2.00 07/27/21 01:00 83 07/27/21 00:18 93 Nasal Cannula 2.00 07/27/21 00:00 90 23 103/62 Nasal Cannula 2.00 07/26/21 23:00 85 30 93/54 89 Nasal Cannula 2.00 07/26/21 22:46 36.4 Nasal Cannula 2.00 07/26/21 22:00 88 14 106/70 97 Nasal Cannula 2.00 07/26/21 21:00 91 16 97/63 97 Nasal Cannula 2.00 07/26/21 20:50 94 Nasal Cannula 2.00 07/26/21 20:04 95 31 111/66 95 Nasal Cannula 2.00 07/26/21 20:00 95 Nasal Cannula 2.00 07/26/21 19:02 105 07/26/21 19:00 102 22 123/93 97 Nasal Cannula 2.00 07/26/21 19:00 36.6 Nasal Cannula 2.00 07/26/21 18:34 98 18 120/89 96 Nasal Cannula 2.00 07/26/21 17:00 104 17 110/80 94 Nasal Cannula 2.00 07/26/21 16:06 36.4 07/26/21 16:05 Nasal Cannula 2.00 07/26/21 16:00 100 19 106/69 96 Nasal Cannula 2.00 07/26/21 15:53 36.6 07/26/21 15:00 101 14 128/66 95 Nasal Cannula 2.00 07/26/21 14:00 92 10 111/96 96 Nasal Cannula 2.00 07/26/21 13:00 92 20 111/85 93 Nasal Cannula 2.00 07/26/21 12:58 95 07/26/21 12:35 Nasal Cannula 2.00 07/26/21 12:30 36.4 07/26/21 12:00 99 14 116/64 94 Nasal Cannula 2.00 07/26/21 11:00 101 15 108/92 96 Nasal Cannula 2.00 I & O 07/27/21 07:00 Intake Total 2050 ml Output Total 125 ml Balance 1925 ml Height & Weight Height: 5'2.00" Weight: 160lbs. oz. 72.417435pm; 22.57 BMI Method:Stated General Appearance: Anxious, Chronically ill, Moderate Distress (shallow, labored breathing, slightly lethargic) HEENT: PERRL/EOMI, Moist Mucous Membranes; No Scleral Icterus (L), No Scleral Icterus (R) Neck: Non Tender, Supple Respiratory: Accessory Muscle Use, Crackles, Decreased Breath Sounds (Increased sounds from yesterday but still decreased overall. ), Expiration (Shortened expiration), Inspiration (Shortened inspiration length.), Respiratory Distress Cardiovascular: Regular Rate, Rhythm, No Gallop, No Murmur, Tachycardia Capillary Refill: Less Than 3 Seconds Peripheral Pulses: 2+ Dorsalis Pedis (R), 2+ Radial Pulses (R), 2+ Radial Pulses (L) Gastrointestinal: normal bowel sounds, non tender, soft, no pulsatile mass Extremity: Normal Capillary Refill, Normal Inspection, Non Tender, No Pedal Edema Neurologic/Psychiatric: Alert, Oriented x3, No Motor/Sensory Deficits, Normal Mood/Affect Skin: Warm/Dry; No Diaphoresis, No Jaundice; Pallor Lymphatic: No Adenopathy (cervical, axillary) Results Lab Laboratory Tests 07/26/21 04:45 07/27/21 04:55 Assessment/Plan Assessment/Plan (Tele-ICU Physician , Progress Note ) Available chart/ vitals / labs / Images reviewed Video assessment done using teleICU camera, rest of exam as per RN Discussed with RN , EXAM PER RN Events overnight : Afebrile FiO2 - 96% on 2 LPM NC. I/O = Drips: Pressors: , hemodynamically stable Consultants: sx Hospital course: 07/25 - to ICU with espiratory insufficiency due to large R pleural effusion , 96% on 2 LPM NC. 06/25 -s /p RIGHT Thora 3.8L yellow A/P RIGHT large pleural effusion causing complete lung atelectasis and mediastinal shift to left ( CT 07/25 - clinically High suspicion for malignancy: - s /p RIGHT Thora 3.8L yellow by Dr Tsai - - no pH and LDH available from fluid , but based on elevted protein :suspect EXUDATE - need to await for pathology - high suspicios for malignancy or atypical ( legionella ect - will need CT chest with contrast - probably in a week to better define a plan with most test results back ( might need bronch Acute respiratory insufficiency due to pleural effusion - s/p 3.8 L thora - 1l NC , feels better Possible Left PNA vs atelectasis ( covid neg 07/25 - empiric abx started 07/25 - Cefepime and vancomycin -await fo cx - low susp for empyema - treated with Augmentin APPLICATION SUPPORT - consider to add coberage for Clamidia/ mycolasma.lefionella - but will awit for path/cx now , if patient is nontoxic and doing better COPD - mild emphesema on CT - add nebs prn, meds starte Elev Glucose - ISS , hba1c pending Home meds - respiridone, xanax , neurontin - to cont Lines : (Central Line Necessity Reviewed) Centeno: OG: Nutrition: po Analgesia: Anxiety/ delirium xanax VTE Prophylaxis: SCD - lovenox Stress Ulcer Prophylaxis: po Glycemic Control: Plans in collaboration with bedside consultants and IM MDs. Discussed with RN to reach out if any questions or concerns A total of 31 minutes of critical care time was devoted to this patient today, required to treat and/or prevent further deterioration of critical care condition ( as above) . MAYCOL OWENS MD Jul 27, 2021 10:13
[2021-07-27] MEDS ORDERED: ENOXAPARIN 40 MG/0.4 ML (LOVENOX) SYR SC SCH (10:15)
[2021-07-27] MEDS ORDERED: AMOX-358 PO (10:31)
--- NOTE | 2021-07-27 10:32 | Discharge Summary ---
Diagnosis/Chief Complaint Date of Admission Jul 25, 2021 at 20:15 Date of Discharge Discharge Date: Jul 27, 2021 Discharge Diagnosis Assessment: Acute respiratory insufficiency Severe right-sided pleural effusion Bone spine lesion suspecting some sort of neoplastic process Meth use Smoker 40 pound weight loss Anxiety Reason Hospital Visit CC: SOB HPI: This is a 51yoWF who smokes and takes illicit drugs who presented to the ER with SOB found to have found to have a complete white out on her CXR. She was recommended to be admitted at [facility] yesterday but she left AMA and then returned due to SOB. She had completed Augmentin from the clinic and she has had a 40lb weight loss in the last 4 months. She had a large right sided pleural effusion, Dr. Tsai has been consulted for thorocentesis. Home meds have been reviewed and will restart those if able. She remains on 2 liters of oxygen and has conversational dyspnea. Discharge Summary Discharge Physical Examination Allergies: Coded Allergies: iodine (Verified Allergy, Unknown, 02/12/19) clindamycin (Verified Adverse Reaction, Mild, Vomiting; Dizziness, 07/26/21) diphenhydramine (Verified Adverse Reaction, Unknown, eyes water, 02/12/19) Vitals & I&Os Vital Signs Date Time Temp Pulse Resp B/P (MAP) Pulse Ox O2 Delivery O2 Flow Rate FiO2 07/27/21 15:20 07/27/21 15:00 77 20 Nasal Cannula 2.00 07/27/21 12:08 36.3 07/27/21 12:00 95 07/27/21 07:51 97 General Appearance: Alert, Oriented X3, Cooperative Respiratory: Clear to Auscultation Cardiovascular: Regular Rate Psych/Mental Status: Mental Status NL Hospital Course Was the Problem List Reviewed?: Yes Hospital Course: Pt had a brief hospital course after she was admitted after leaving AMA several times and after completing Augmentin from the clinic but she was found to have a severe right sided pleural effusion with lesion on her spine consistent with some sort of neoplastic process. She had a thorocentesis performed, removed 4800 cc and she did very well. She required one liter of oxygen on exertion at [place]. Antibiotics will be completed and she will have follow up with PCP for bone scan and further work up since she was insistent on leaving I decided it would be a safe discharge. Labs (last 24 hrs) Laboratory Tests 07/25/21 20:10: Prothrombin Time 14.7, INR Comment 1.1, Activated Partial Thromboplast Time 28, Lactic Acid Level 2.14*H 07/25/21 20:14: Blood Gas Puncture Site L RAD, Blood Gas Patient Temperature 36.9, Arterial Blood pH 7.41, Arterial Blood Partial Pressure CO2 47H, Arterial Blood Partial Pressure O2 67L, Arterial Blood HCO3 29H, Arterial Blood Total CO2 30.6, Arterial Blood Oxygen Saturation 93L, Arterial Blood Base Excess 4.7H, Chance Test YES-POS, Blood Gas Ventilator Setting NO, Blood Gas Inspired Oxygen 2L 07/25/21 20:22: SARS-CoV-2 RNA (RT-PCR) Not Detected 07/25/21 22:25: Lactic Acid Level 1.95 07/26/21 04:45: White Blood Count 11.2H, Red Blood Count 5.19H, Hemoglobin 14.9, Hematocrit 47, Mean Corpuscular Volume 91, Mean Corpuscular Hemoglobin 29, Mean Corpuscular Hemoglobin Concent 31L, Red Cell Distribution Width 12.2, Platelet Count 378, Mean Platelet Volume 10.7, Immature Granulocyte % (Auto) 1, Neutrophils (%) (Auto) 71, Lymphocytes (%) (Auto) 20, Monocytes (%) (Auto) 6, Eosinophils (%) (Auto) 1, Basophils (%) (Auto) 1, Neutrophils # (Auto) 8.0H, Lymphocytes # (Auto) 2.3, Monocytes # (Auto) 0.7, Eosinophils # (Auto) 0.1, Basophils # (Auto) 0.1, Immature Granulocyte # (Auto) 0.1, Sodium Level 139, Potassium Level 4.3, Chloride Level 100, Carbon Dioxide Level 26, Anion Gap 13, Blood Urea Nitrogen 4L, Creatinine 0.60, Estimat Glomerular Filtration Rate 105, BUN/Creatinine Ratio 7, Glucose Level 147H, Calcium Level 8.6, Corrected Calcium 9.2, Phosphorus Level 4.9H, Magnesium Level 1.5L, Total Bilirubin 0.3, Aspartate Amino Transf (AST/SGOT) 42H, Alanine Aminotransferase (ALT/SGPT) 48, Alkaline Phosphatase 388H, Total Protein 6.1L, Albumin 3.2 07/26/21 10:32: Glucometer 120H 07/26/21 12:55: Body Fluid Source PLEURAL, Body Fluid Color PALE YELLOW, Body Fluid Appearance MKD CLDY, Body Fluid WBC 400, Body Fluid RBC 48659, Body Fluid Polynuclear WBCs 1, Body Fluid Mononuclear WBCs 0, Body Fluid Lymphocytes 25, Body Fluid Eosinophils 0, Body Fluid Other Cells 74, Body Fluid Glucose 130, Body Fluid Total Protein 3.8 07/26/21 15:41: Glucometer 131H 07/26/21 19:46: Glucometer 119H 07/27/21 04:55: White Blood Count 8.4, Red Blood Count 4.45, Hemoglobin 12.8, Hematocrit 40, Mean Corpuscular Volume 90, Mean Corpuscular Hemoglobin 29, Mean Corpuscular Hemoglobin Concent 32, Red Cell Distribution Width 12.0, Platelet Count 238, Mean Platelet Volume 11.0, Immature Granulocyte % (Auto) 0, Neutrophils (%) (Auto) 69, Lymphocytes (%) (Auto) 23, Monocytes (%) (Auto) 6, Eosinophils (%) (Auto) 2, Basophils (%) (Auto) 1, Neutrophils # (Auto) 5.8, Lymphocytes # (Auto) 2.0, Monocytes # (Auto) 0.5, Eosinophils # (Auto) 0.2, Basophils # (Auto) 0.0, Immature Granulocyte # (Auto) 0.0, Sodium Level 140, Potassium Level 3.3L, Chloride Level 102, Carbon Dioxide Level 29, Anion Gap 9, Blood Urea Nitrogen 5L , Creatinine 0.49L, Estimat Glomerular Filtration Rate 133, BUN/Creatinine Ratio 10, Glucose Level 100, Mean Blood Glucose 117, Hemoglobin A1c 5.7H, Calcium Level 7.9L, Corrected Calcium 9.1, Phosphorus Level 3.4, Magnesium Level 1.6, T otal Bilirubin 0.3, Aspartate Amino Transf (AST/SGOT) 52H, Alanine Aminotransferase (ALT/SGPT) 56H, Alkaline Phosphatase 365H, Total Protein 4.6L, Albumin 2.5L 07/27/21 08:55: Vancomycin Level Trough 12.3 07/27/21 10:34: Glucometer 104 Microbiology 07/26/21 Gram Stain - Final, Resulted 07/26/21 Anaerobic Culture, Resulted Pending 07/26/21 Body Fluid Culture - Preliminary, Resulted No growth 07/26/21 Fungal Culture 1 - Preliminary, Resulted Culture In Progress 07/25/21 MRSA Screen - Final, Complete MRSA not isolated 07/25/21 Blood Culture - Preliminary, Resulted No growth Pending Labs Microbiology Date/Time Source Procedure Growth Status 07/26/21 12:55 Pleural Fluid Gram Stain - Final Resulted 07/26/21 12:55 Pleural Fluid Anaerobic Culture Pending Resulted 07/26/21 12:55 Pleural Fluid Body Fluid Culture - Preliminary No growth Resulted 07/26/21 12:55 Fungal Culture 1 - Preliminary Culture In Progress Resulted 07/25/21 21:20 Nasal MRSA Screen - Final MRSA not isolated Complete 07/25/21 20:20 Peripheral Left Wrist Blood Culture - Preliminary No growth Resulted 07/25/21 20:10 Peripheral Rt Ac Blood Culture - Preliminary No growth Resulted Laboratory Tests 07/25/21 20:10: Prothrombin Time 14.7, INR Comment 1.1, Activated Partial Thromboplast Time 28, Lactic Acid Level 2.14 07/25/21 20:14: Blood Gas Puncture Site L RAD, Blood Gas Patient Temperature 36.9, Arterial Blood pH 7.41, Arterial Blood Partial Pressure CO2 47, Arterial Blood Partial Pressure O2 67, Arterial Blood HCO3 29, Arterial Blood Total CO2 30.6, Arterial Blood Oxygen Saturation 93, Arterial Blood Base Excess 4.7, Chance Test YES-POS, Blood Gas Ventilator Setting NO, Blood Gas Inspired Oxygen 2L 07/25/21 20:22: SARS-CoV-2 RNA (RT-PCR) Not Detected 07/25/21 22:25: Lactic Acid Level 1.95 07/26/21 04:45: White Blood Count 11.2, Red Blood Count 5.19, Hemoglobin 14.9, Hematocrit 47, Mean Corpuscular Volume 91, Mean Corpuscular Hemoglobin 29, Mean Corpuscular Hemoglobin Concent 31, Red Cell Distribution Width 12.2, Platelet Count 378, Mean Platelet Volume 10.7, Immature Granulocyte % (Auto) 1, Neutrophils (%) (Auto) 71, Lymphocytes (%) (Auto) 20, Monocytes (%) (Auto) 6, Eosinophils (%) (Auto) 1, Basophils (%) (Auto) 1, Neutrophils # (Auto) 8.0, Lymphocytes # (Auto) 2.3, Monocytes # (Auto) 0.7, Eosinophils # (Auto) 0.1, Basophils # (Auto) 0.1, Immature Granulocyte # (Auto) 0.1, Sodium Level 139, Potassium Level 4.3, Chloride Level 100, Carbon Dioxide Level 26, Anion Gap 13, Blood Urea Nitrogen 4, Creatinine 0.60, Estimat Glomerular Filtration Rate 105, BUN/Creatinine Ratio 7, Glucose Level 147, Calcium Level 8.6, Corrected Calcium 9.2, Phosphorus Level 4.9, Magnesium Level 1.5, Total Bilirubin 0.3, Aspartate Amino Transf (AST/SGOT) 42, Alanine Aminotransferase (ALT/SGPT) 48, Alkaline Phosphatase 388, Total Protein 6.1, Albumin 3.2 07/26/21 10:32: Glucometer 120 07/26/21 12:55: Body Fluid Source PLEURAL, Body Fluid Color PALE YELLOW, Body Fluid Appearance MKD CLDY, Body Fluid WBC 400, Body Fluid RBC [address]69, Body Fluid Polynuclear WBCs 1, Body Fluid Mononuclear WBCs 0, Body Fluid Lymphocytes 25, Body Fluid Eosinophils 0, Body Fluid Other Cells 74, Body Fluid Glucose 130, Body Fluid Total Protein 3.8 07/26/21 15:41: Glucometer 131 07/26/21 19:46: Glucometer 119 07/27/21 04:55: White Blood Count 8.4, Red Blood Count 4.45, Hemoglobin 12.8, Hematocrit 40, Mean Corpuscular Volume 90, Mean Corpuscular Hemoglobin 29, Mean Corpuscular Hemoglobin Concent 32, Red Cell Distribution Width 12.0, Platelet Count 238, Mean Platelet Volume 11.0, Immature Granulocyte % (Auto) 0, Neutrophils (%) (Auto) 69, Lymphocytes (%) (Auto) 23, Monocytes (%) (Auto) 6, Eosinophils (%) (Auto) 2, Basophils (%) (Auto) 1, Neutrophils # (Auto) 5.8, Lymphocytes # (Auto) 2.0, Monocytes # (Auto) 0.5, Eosinophils # (Auto) 0.2, Basophils # (Auto) 0.0, Immature Granulocyte # (Auto) 0.0, Sodium Level 140, Potassium Level 3.3, Chloride Level 102, Carbon Dioxide Level 29, Anion Gap 9, Blood Urea Nitrogen 5, Creatinine 0.49, Estimat Glomerular Filtration Rate 133, BUN/Creatinine Ratio 10, Glucose Level 100, Mean Blood Glucose 117, Hemoglobin A1c 5.7, Calcium Level 7.9, Corrected Calcium 9.1, Phosphorus Level 3.4, Magnesium Level 1.6, Total Bilirubin 0.3, Aspartate Amino Transf (AST/SGOT) 52, Alanine Aminotransferase (ALT/SGPT) 56, Alkaline Phosphatase 365, Total Protein 4.6, Albumin 2.5 07/27/21 08:55: Vancomycin Level Trough 12.3 07/27/21 10:34: Glucometer 104 Discharge Home Medications: Active Scripts Active Nicoderm Cq (Nicotine) 1 Each Patch.td24 14 Mg TD DAILY 14 Days Augmentin 875-125 Tablet (Amoxicillin/Potassium Clav) 1 Each Tablet 1 Each PO BID Reported Montelukast Sodium 10 Mg Tablet 10 Mg PO DAILY Aspirin EC (Aspirin) 81 Mg Tablet.dr 81 Mg PO DAILY Amitriptyline HCl 50 Mg Tablet 50-100 Mg PO HS TAKES 1 TO 2 (50MG) TABS Proair Hfa (Albuterol Sulfate) 1 Puff Puff 2 Puff IH Q4H PRN Trelegy Ellipta 200-62.5-25 (Fluticasone/Umeclidin/Vilanter) 1 Each Blst.w.dev 1 Inh INH DAILY Sertraline HCl 50 Mg Tablet 50 Mg PO DAILY Alprazolam 1 Mg Tablet 1 Mg PO TID Pantoprazole Sodium 40 Mg Tablet.dr 40 Mg PO DAILY Gabapentin 600 Mg Tablet 600 Mg PO TID Methocarbamol 750 Mg Tablet 750 Mg PO BID Propranolol HCl 20 Mg Tablet 20 Mg PO TID Instructions to patient/family Please see electronic discharge instructions given to patient. Diagnosis/Problems Diagnosis/Problems (1) Acute respiratory failure with hypoxemia Status: Acute (2) Pleural effusion on right Status: Acute MAGGIE SANCHEZ DO Jul 27, 2021 10:32
--- NOTE | 2021-07-27 12:39 | Progress Note ---
SHIVANI GALINDO MED STUDENT 07/27/21 1239: Progress Note Hospital course: 07/25/21: Pt was admitted to ICU due to massive R pleural effusion. Started on empiric abx for pneumonia, placed on O2. CXR and CT chest shows massive R effusion with mediastinal shift R to L, spinal sclerotic lesions suspicious for metastasis. General surgery consulted and performed thoracentesis draining 3.85L of cloudy yellow fluid. VS remained stable throughout. Verbalized desire to leave hospital. Transitioned to PO Abx. Trialed for home O2 and qualified for 1L w/ exertion. Dyspnea/respiratory status improved significantly since admission. CXR improved significantly, with bibasilar atelectasis, remnant small R effusion, irregular nodule R upper lobe. Instructed to f/u with Dr. Ross, her PCP. MIRIAM SANCHEZ DO 07/28/21 0556: Supervisory-Addendum Brief Verification & Attestation Participated in pt care: history, MDM, physical Personally performed: exam, history, MDM, supervision of care Care discussed with: Medical Student Procedures: n/a Results interpretation: Verified all documentation Verification and Attestation of Medical Student E/M Service A medical student performed and documented this service in my presence. I reviewed and verified all information documented by the medical student and made modifications to such information, when appropriate. I personally performed the physical exam and medical decision making. Miriam Sanchez, Jul 28, 2021,05:56 SHIVANI GALINDO MED STUDENT Jul 27, 2021 12:39 MIRIAM SANCHEZ DO Jul 28, 2021 05:56
[2021-07-27] MEDS ORDERED: NICO1PAT38 TD (13:58)
[2021-07-27] MEDS ORDERED: CEFEPIME 1,000 MG/NS 50 ML IVPB IV SCH ×2 (16:00)
--- NOTE | 2021-07-29 12:03 | Physician Query Clarification ---
PQ-Uncertain Diagnosis Admission/Discharge Admission Date: Jul 25, 2021 at 20:15 Discharge Date: Jul 27, 2021 at 15:20 Dr. Jensen, The medical record reflects the following clinical scenario: History/Risk Factors: SOB, acute on chornic respiratory failure w/hypoxia, rt lung pleural effusion w. collapse rt lung Clinical Findings: T 36.9, Lactic acid 2.14, WBC 11.2, P 95, R 20 Treatment: IV Vancomycin, IV Cefepime Question: Is sepsis a clinically valid diagnosis? Sepsis was documented in the ER record with no further documentation in the medical record. Please document a response in Progress Note or Discharge Summary. 1. Yes, clinically valid, condition resolved. 2. No, condition ruled out. 3. Other, with explanation of clinical findings. 4. Undetermined, no explanation for clinical findings. PHYSICIAN RESPONSE Diagnosis clinically valid: Yes, Conditon resolved Please remember a lack of response to the above will prompt a phone page by CDI/Coding staff. In responding to this query, please exercise your independent professional judgment. The purpose of this communication is to more accurately reflect the complexity of your patients condition. The fact that a question is asked does not imply that any particular answer is desired or expected. Thank you for your timely response to this clarification. Requestors name: Wilfredo THIS PHYSICIAN QUERY FORM IS A PERMANENT PART OF THE MEDICAL RECORD WILFREDO REYNA Jul 29, 2021 12:03 MAGGIE JENSEN DO Jul 29, 2021 17:31
--- NOTE | 2021-07-29 12:07 | Physician Query Clarification ---
PQ-Uncertain Diagnosis Admission/Discharge Admission Date: Jul 25, 2021 at 20:15 Discharge Date: Jul 27, 2021 at 15:20 Dr. Jensen, The medical record reflects the following clinical scenario: History/Risk Factors: SOB, acute on chornic respiratory failure w/hypoxia, rt lung pleural effusion w. collapse rt lung Clinical Findings: T 36.9, Lactic acid 2.14, WBC 11.2, P 95, R 20, accessory muscle use Treatment: IV Vancomycin, IV Cefepime Question: Is pneumonia a clinically valid diagnosis? Pneumonia was documented in the ER record with no further documentation in the medical record. Please document a response in Progress Note or Discharge Summary. 1. Yes, clinically valid, condition resolved. 2. No, condition ruled out. 3. Other, with explanation of clinical findings. 4. Undetermined, no explanation for clinical findings. PHYSICIAN RESPONSE Diagnosis clinically valid: Yes, Conditon resolved Please remember a lack of response to the above will prompt a phone page by CDI/Coding staff. In responding to this query, please exercise your independent professional judgment. The purpose of this communication is to more accurately reflect the complexity of your patients condition. The fact that a question is asked does not imply that any particular answer is desired or expected. Thank you for your timely response to this clarification. Requestors name: Wilfredo THIS PHYSICIAN QUERY FORM IS A PERMANENT PART OF THE MEDICAL RECORD WILFREDO REYNA Jul 29, 2021 12:07 MAGGIE JENSEN DO Jul 29, 2021 17:31
--- NOTE | 2021-07-29 12:12 | Physician Query Clarification ---
PQ-Link Path Diagnosis Admission/Discharge Admission Date: Jul 25, 2021 at 20:15 Discharge Date: Jul 27, 2021 at 15:20 Dr. Jensen, The medical record reflects the following: rt lung pleural effusion with colla pse rt lung The pathology report findings document: from rt thoracentesis pleural effusion - metastastic adenocarcinoma pulmonary primary Question: Do you agree with the pathology report findings of lung CA with metastasis to the pleura? Please document a response in Progress Notes or Discharge Summary. 1. Agree with pathological diagnosis of lung CA with metastasis to the pleura. 2. No - Do not agree with pathology findings of lung CA with metastasis to the pleura. 3. Other, with explanation of the clinical findings. 4. Clinically undetermined, no explanation for the clinical findings. Is is appropriate for a provider to add additional documentation (addenda) to the record to explain the evaluation & care up to 30 days post-discharge. See [facility] and Patient Record Guidelines below. The [facility] Chapter Record of Care, Standard; [id number].01.03.01EP 1: "The hospital has a written policy that required timely entry of information into the medical record." According to [facility] Patient Record Guidelines, ARTICLE XXI. CORRECTIONS AND ADDENDA, Modifications (addenda amendments, corrections and retractions) should be made timely and no later than regulatory requirements for record completion (i.e. 30 days post discharge). Official coding guidelines require coders to query the physician for agreement with pathology findings that occur during the encounter. Coders are not allowed to pull information directly from the path reports. PHYSICIAN RESPONSE Pathology Report Findings: Yes,agree w/path dx as documented Please remember a lack of response to the above will prompt a phone page by CDI/Coding staff. In responding to this query, please exercise your independent professional judgment. The purpose of this communication is to more accurately reflect the complexity of your patients condition. The fact that a question is asked does not imply that any particular answer is desired or expected. Thank you for your timely response to this clarification. Requestors name: Wilfredo THIS PHYSICIAN QUERY FORM IS A PERMANENT PART OF THE MEDICAL RECORD WILFREDO REYNA Jul 29, 2021 12:12 MAGGIE JENSEN DO Jul 29, 2021 17:32
== END 2021-07-27 15:20 | disposition home or self-care (01) | DRG 871 ==
LOC: EDUNIT# 19:25 → ER 19:26 → ICU 20:15
PROVIDERS: ADMIT Internal Medicine; ATTEND Internal Medicine
PROC: 0W993ZZ Drainage of Right Pleural Cavity, Percutaneous Approach (ICD-10-PCS; principal; 2021-07-26)
DX: A41.9 Sepsis, unspecified organism (principal); J18.9 Pneumonia, unspecified organism; J96.21 Acute and chronic respiratory failure with hypoxia; J90 Pleural effusion, not elsewhere classified; J98.11 Atelectasis; J44.0 Chronic obstructive pulmonary disease with (acute) lower respiratory infection; C34.11 Malignant neoplasm of upper lobe, right bronchus or lung; C78.2 Secondary malignant neoplasm of pleura; C79.51 Secondary malignant neoplasm of bone; F17.210 Nicotine dependence, cigarettes, uncomplicated; I10 Essential (primary) hypertension; K21.9 Gastro-esophageal reflux disease without esophagitis; F32.A Depression, unspecified; F41.9 Anxiety disorder, unspecified; E78.00 Pure hypercholesterolemia, unspecified; G62.9 Polyneuropathy, unspecified; M54.9 Dorsalgia, unspecified; F15.90 Other stimulant use, unspecified, uncomplicated; Z20.822 Contact with and (suspected) exposure to COVID-19; Z79.899 Other long term (current) drug therapy; Z88.1 Allergy status to other antibiotic agents; Z88.8 Allergy status to other drugs, medicaments and biological substances; Z91.048 Other nonmedicinal substance allergy status
CPT/HCPCS: 36415; 71045; 80053; 80202; 82805; 82945; 82947; 83036; 83605; 83735; 84100; 84157; 85025; 85610; 85730; 87040; 87070; 87075; 87081; 87101; 87205; 87636; 88112; 88305; 88341; 88342; 88344; 89051; 94640; 94761; 99291

== ENCOUNTER 2021-08-07 07:23 | Emergency (ER) | payer MEDICAID ==
[~2021-08-07] VITALS: Ht 157 cm; Wt 65.0 kg
[~2021-08-07 07:23] MED LIST changes: +ALPR1TAB7 PO; +AMIT50TA3 PO; +AMOX-358 PO; +ASPI-1238 PO; +FLUT1BLS15 INH; +GBPN600T PO; +METH-732 PO; +MONT10TA32 PO; +NICO1PAT38 TD; +PANT40TA52 PO; +PROP20TA5 PO; +RISP0.5T65 PO; +RT-ALBUINH IH; +SERT-413 PO
--- NOTE | 2021-08-07 07:44 | ED Chest Pain ---
General Chief Complaint: Chest Wall Stated Complaint: LT LUNG PAIN Source: patient, family Exam Limitations: no limitations History of Present Illness Date Seen by Provider: Aug 07, 2021 Time Seen by Provider: 07:27 Initial Comments 51-year-old female with past medical history of COPD, chronic respiratory failure on 2 L oxygen baseline, tobacco use, anxiety, hypertension, and unknown metastatic cancer likely with sclerotic lesions in her spine coming in from home due to left-sided chest wall pain. Started at 1 AM and woke her up. Is severe and sharp. She says it feels like what I did 15 years ago when she broke her ribs. She says she has not had any new trauma. Denies any recent pain like this. Has been on her baseline oxygen, but has been coughing up more white sputum again similar to what she did a couple weeks ago when she had a large pleural effusion. Denies any fever, increasing shortness of breath beyond her baseline, abdominal pain, nausea, vomiting, diarrhea, weakness, numbness, rash, or any other concerns. Allergies and Home Medications Allergies Coded Allergies: iodine (Verified Allergy, Unknown, 02/12/19) clindamycin (Verified Adverse Reaction, Mild, Vomiting; Dizziness, 07/26/21) diphenhydramine (Verified Adverse Reaction, Unknown, eyes water, 02/12/19) Patient Home Medication List Home Medication List Reviewed: Yes Albuterol Sulfate (Proair Hfa) 1 Puff Puff, 2 PUFF IH Q4H PRN for SHORTNESS OF BREATH, (Reported) Entered as Reported by: MATT BUSH on 07/26/21 1044 Alprazolam (Alprazolam) 1 Mg Tablet, 1 MG PO TID, (Reported) Entered as Reported by: MARILEE KHANNA on 07/26/21 0743 Amitriptyline HCl (Amitriptyline HCl) 50 Mg Tablet, 50-100 MG PO HS, (Reported) Entered as Reported by: MATT BUSH on 07/26/21 1044 Amoxicillin/Potassium Clav (Augmentin 875-125 Tablet) 1 Each Tablet, 1 EACH PO BID Prescribed by: MAGGIE SANCHEZ on 07/27/21 1031 Aspirin (Aspirin EC) 81 Mg Tablet., 81 MG PO DAILY, (Reported) Entered as Reported by: MATT BUSH on 07/26/21 1044 Doxycycline Hyclate (Doxycycline Hyclate) 100 Mg Tablet, 100 MG PO BID Prescribed by: SEBASTIAN ELIZABETH on 08/07/21 0843 Fluticasone/Umeclidin/Vilanter (Trelegy Ellipta 200-62.5-25) 1 Each Blst.w.dev, 1 INH INH DAILY, (Reported) Entered as Reported by: MARILEE KHANNA on 07/26/21742 Gabapentin (Gabapentin) 600 Mg Tablet, 600 MG PO TID, (Reported) Entered as Reported by: MARILEE KHANNA on 07/26/21742 Methocarbamol (Methocarbamol) 750 Mg Tablet, 750 MG PO BID, (Reported) Entered as Reported by: MARILEE KHANNA on 07/26/21742 Montelukast Sodium (Montelukast Sodium) 10 Mg Tablet, 10 MG PO DAILY, (Reported) Entered as Reported by: MATT BUSH on 07/26/21 104 Nicotine (Nicoderm Cq) 1 Each Patch.td24, 14 MG TD DAILY Prescribed by: SAVANNA SANTILLAN on 07/27/21 1358 Pantoprazole Sodium (Pantoprazole Sodium) 40 Mg Tablet.dr, 40 MG PO DAILY, (Reported) Entered as Reported by: MARILEE KHANNA on 07/26/21742 Propranolol HCl (Propranolol HCl) 20 Mg Tablet, 20 MG PO TID, (Reported) Entered as Reported by: MARILEE KHANNA on 07/26/21742 Sertraline HCl (Sertraline HCl) 50 Mg Tablet, 50 MG PO DAILY, (Reported) Entered as Reported by: MARILEE KHANNA on 07/26/21742 Review of Systems Review of Systems Constitutional: No chills, No fever EENTM: No Blurred Vision Respiratory: Cough, Shortness of Air Cardiovascular: Chest Pain; Denies Palpitations, Denies Syncope Gastrointestinal: Denies Abdominal Pain, Denies Diarrhea, Denies Nausea, Denies Vomiting Genitourinary: No Symptoms Reported Musculoskeletal: no symptoms reported Skin: no symptoms reported Psychiatric/Neurological: Anxiety Endocrine: No Symptoms Reported Hematologic/Lymphatic: No Symptoms Reported All Other Systems Reviewed Negative Unless Noted: Yes Past Lrzaivx-Vdqfum-Zjxdli Hx Patient Social History Tobacco Use?: Yes Tobacco type used: Cigars Smoking Status: Heavy Tobacco Smoker Use of E-Cig and/or Vaping dev: No Substance use?: Yes Substance type: Marijuana Alcohol Use?: Yes Alcohol Frequency: Several times a month Pt feels they are or have been: No Immunizations Up To Date First/Initial COVID19 Vaccinat: 12/03/20 Second COVID19 Vaccination Delta: 01/15/21 Seasonal Allergies Seasonal Allergies: Yes Past Medical History Surgery/Hospitalization HX: COPD, Pneumonia, HTN, High Cholesterol, GERD, Depression Surgeries: Yes Section, Gallbladder, Hysterectomy Respiratory: Yes Asthma, COPD Cardiac: Yes High Cholesterol Neurological: Yes Neuropathy, Stroke Genitourinary: No Gastrointestinal: No Musculoskeletal: Yes Chronic Back Pain Endocrine: No HEENT: No Cancer: No Psychosocial: Yes Anxiety, Depression Integumentary: No Blood Disorders: No Family Medical History Cancer Physical Exam Vital Signs Vital Signs - First Documented 08/07/21 07:37 Temp 36.3 Pulse 80 Resp 20 B/P (MAP) 139/110 (120) Pulse Ox 96 O2 Delivery Nasal Cannula Capillary Refill : Height, Weight, BMI Height: 5'2.00" Weight: 160lbs. oz. 72.652449zk; 22.57 BMI Method:Stated General Appearance: No Apparent Distress, WD/WN HEENT: PERRL/EOMI, TMs Normal, Pharynx Normal Neck: Full Range of Motion, Normal Inspection, Non Tender, Supple Respiratory: No Accessory Muscle Use, No Respiratory Distress, Crackles, Wheezing, Other (chest tender to touch on left side, no rash present) Cardiovascular: Regular Rate, Rhythm, No Edema, Normal Peripheral Pulses Gastrointestinal: Normal Bowel Sounds, Non Tender, Soft; No Distended, No Guarding Extremity: Normal Capillary Refill, Normal Inspection, Normal Range of Motion, Non Tender, No Calf Tenderness, No Pedal Edema Neurologic/Psychiatric: Alert, No Motor/Sensory Deficits, Normal Mood/Affect Skin: Normal Color, Warm/Dry Lymphatic: No Adenopathy Progress/Results/Core Measures Results/Orders Lab Results Laboratory Tests Test 08/07/21 07:45 Range/Units White Blood Count 11.9 H 4.3-11.0 10^3/uL Red Blood Count 5.15 H 3.80-5.11 10^6/uL Hemoglobin 14.5 11.5-16.0 g/dL Hematocrit 45 35-52 % Mean Corpuscular Volume 87 80-99 fL Mean Corpuscular Hemoglobin 28 25-34 pg Mean Corpuscular Hemoglobin Concent 32 32-36 g/dL Red Cell Distribution Width 12.5 10.0-14.5 % Platelet Count 317 130-400 10^3/uL Mean Platelet Volume 10.6 9.0-12.2 fL Immature Granulocyte % (Auto) 0 % Neutrophils (%) (Auto) 65 42-75 % Lymphocytes (%) (Auto) 24 12-44 % Monocytes (%) (Auto) 7 0-12 % Eosinophils (%) (Auto) 3 0-10 % Basophils (%) (Auto) 1 0-10 % Neutrophils # (Auto) 7.7 1.8-7.8 X 10^3 Lymphocytes # (Auto) 2.9 1.0-4.0 X 10^3 Monocytes # (Auto) 0.9 0.0-1.0 X 10^3 Eosinophils # (Auto) 0.3 0.0-0.3 10^3/uL Basophils # (Auto) 0.1 0.0-0.1 10^3/uL Immature Granulocyte # (Auto) 0.1 0.0-0.1 10^3/uL Prothrombin Time 14.6 12.2-14.7 SEC INR Comment 1.1 0.8-1.4 Activated Partial Thromboplast Time 28 24-35 SEC Sodium Level 137 135-145 MMOL/L Potassium Level 3.7 3.6-5.0 MMOL/L Chloride Level 99 98-107 MMOL/L Carbon Dioxide Level 26 21-32 MMOL/L Anion Gap 12 5-14 MMOL/L Blood Urea Nitrogen 3 L 7-18 MG/DL Creatinine 0.44 L 0.60-1.30 MG/DL Estimat Glomerular Filtration Rate 150 BUN/Creatinine Ratio 7 Glucose Level 139 H 70-105 MG/DL Calcium Level 9.1 8.5-10.1 MG/DL Corrected Calcium 9.7 8.5-10.1 MG/DL Total Bilirubin 0.3 0.1-1.0 MG/DL Aspartate Amino Transf (AST/SGOT) 39 H 5-34 U/L Alanine Aminotransferase (ALT/SGPT) 39 0-55 U/L Alkaline Phosphatase 715 H 40-136 U/L Troponin I < 0.30 <0.30 NG/ML Pro-B-Type Natriuretic Peptide 136.9 H <75.0 PG/ML Total Protein 6.5 6.4-8.2 GM/DL Albumin 3.3 3.2-4.5 GM/DL My Orders Orders - SEBASTIAN ELIZABETH MD Cbc With Automated Diff (08/07/21 07:38) Chest 1 View Ap/Pa Only (08/07/21 07:38) Ekg Tracing (08/07/21 07:38) Comprehensive Metabolic Panel (08/07/21 07:38) Protime With Inr (08/07/21 07:38) Partial Thromboplastin Time (08/07/21 07:38) O2 (08/07/21 07:38) Monitor-Rhythm Ecg Trace Only (08/07/21 07:38) Aspirin Chewable Tablet (Baby Aspirin Ch (08/07/21 07:45) Ed Iv/Invasive Line Start (08/07/21 07:38) Troponin I Fs (08/07/21 07:38) Probnp Fs (08/07/21 07:38) Albuterol/Ipra Inhalation Soln (Duoneb I (08/07/21 07:45) Oxycodone Immediate Rel Tablet (Oxyir Ta (08/07/21 08:30) Medications Given in ED Current Medications Medications Dose Ordered Sig/Jason Route Start Time Stop Time Status Last Admin Dose Admin Albuterol/ Ipratropium 3 ml ONCE ONCE INH 08/07/21 07:45 08/07/21 07:46 DC 08/07/21 08:03 3 ML Oxycodone HCl 5 mg ONCE ONCE PO 08/07/21 08:30 08/07/21 08:31 DC 08/07/21 08:25 5 MG Vital Signs/I&O 08/07/21 07:37 Temp 36.3 Pulse 80 Resp 20 B/P (MAP) 139/110 (120) Pulse Ox 96 O2 Delivery Nasal Cannula Progress Progress Note : Progress Note 51-year-old female with above history coming in due to left-sided chest wall pain. ABCs were intact and vitals were stable on presentation. She is on her baseline 2 L oxygen with a saturation of around 96%. She does have crackles bilaterally and some wheezing bilaterally which is slightly worse on the left. She also has some chest wall pain to palpation on the left, no signs of shingles on exam. An IV was placed and basic labs including cardiac markers ordered. Also ordered a chest x-ray given her recent white out pleural effusion that she had drained on the other side. Chest x-ray with her left lung looking clear and actually improved from her p rior a couple weeks ago. Right lung with a small pleural effusion which looks pretty similar to her discharge chest x-ray couple weeks ago as well but may be slightly worse. Most importantly though she is still on her baseline oxygen and doing well. She still has interval follow-up in regards to the cause of this cancer. If this pleural effusion becomes chronic she may need to follow-up and have a long-term solution instead of getting repeat thoracenteses. However, today I do not believe she needs an emergent thoracentesis. EKG appears similar to prior with no new changes. I think unlikely this pain is related to a new PE given how focally tender she is on exam that recreates it and lack of tachycardia. No new lung finding on CXR on the left as well, and in fact left lung gilmore are improved from prior. Troponin in negative and with 7 hours of constant pain it is unlikely this is ACS. Does not look like shingles on exam but always possible it could be an early eruption. Will discuss with her the signs to look out for. Other labs significant for a BNP that is lower than her baseline, elevated alk phos likely secondary to her cancer, and WBC slightly above baseline which is nonspecific. The right lung base could be pleural effusion, but would be impossible to rule out developing pneumonia in that area. Will give a courses of doxy, especially with the increase in her productive cough. Overall I believe she is stable for discharge with close outpatient followup. She was sent home with strict return precautions. Initial ECG Impression Date: Aug 07, 2021 Initial ECG Impression Time: 07:47 Initial ECG Rate: 67 Initial ECG Rhythm: Normal Sinus Comment Narrow QRS, normal axis, T wave inversions in the high lateral and anterior leads which overall appears similar to her prior EKG from March 2020 Diagnostic Imaging Diagonstic Imaging: Xray Plain Films/CT/US/NM/MRI: chest Comments X-ray chest ordered and interpreted by me showing a small right-sided pleural effusion, left lung appears clear and improved from prior roughly 11 days ago, no pneumothorax [facility] [place] NAME: ANA CRISTINA CHERRY [facility] REC#: [id number] PT STATUS: REG ER : 1970 PHYSICIAN: SEBASTIAN ELIZABETH MD ADMIT DATE: 08/07/21/ER FS Draft Date of Exam:08/07/21 CHEST 1 VIEW AP/PA ONLY Clinical Indication: Patient with left chest wall pain. Exam: Portable chest x-ray upright view. Comparisons: Chest x-ray dated 07/27/2021. Findings: There is interval progression of consolidation in the right lung base. Stable airspace opacity in the right lung apex. A small right pleural effusion is suspected. There is improved aeration in the left lung base. The remainder of the lungs are clear. Pulmonary vasculature and cardiac silhouette are within normal limits. The remainder of this exam shows no significant interval change compared to the prior study of comparison. IMPRESSION: 1: There is slight progression of consolidation involving the right lung base. Suspected small right pleural effusion. 2: Stable airspace opacity involving the right lung apex. Dictated on workstation # [id number] Dict: 08/07/21 0803 Trans: 08/07/21 0808 [facility] [id number] Interpreted by: TASHIA MAGANA MD Electronically signed by: Departure Impression Primary Impression: Chest wall pain Additional Impression: Pleural effusion on right Disposition: 01 HOME, SELF-CARE Condition: Stable Departure-Patient Inst. Decision time for Depature: 08:45 Referrals: WILMA MUNOZ DO (PCP/Family) Primary Care Physician Patient Instructions: Pleural Effusion (DC), Chest Pain (DC) Add. Discharge Instructions: You were seen in the emergency department for left-sided chest wall pain. Your chest x-ray looks good on the left side and he did not have any fluid on that side. You do have some fluid in the base of your lung on the right side which appears similar to your chest x-ray from 11 days ago, but may be just slightly worse. The most important thing is that you are still on the 2 L oxygen and have not needed increasing amounts of this. If you begin feeling more short of breath, or you begin requiring more oxygen, than that could be a sign that your fluid is reaccumulating in your lung and you would need to come back to the hospital. Please follow-up with either the oncologist or whoever you had scheduled to figure out where this cancer is coming from that is causing this fluid in your lungs. If anything changes or you have any other concerns then please come back to the ER. Scripts Doxycycline Hyclate (Doxycycline Hyclate) 100 Mg Tablet 100 MG PO BID for 7 Days, #14 TAB 0 Refills Prov: SEBASTIAN ELIZABETH MD 08/07/21 SEBASTIAN ELIZABETH MD Aug 07, 2021 07:44
[2021-08-07] MEDS ORDERED: ACETAMINOPHEN 500 MG TAB (TYLENOL) PO ONE (07:45)
[2021-08-07] MEDS ORDERED: ASPIRIN 81 MG CHEW (CHILDREN'S ASA) PO ONE (07:45)
[2021-08-07] MEDS ORDERED: RT-ALBUTEROL/IPRATROPIUM 3 ML (DUONEB) VIAL INH ONE (07:45)
[2021-08-07 07:52] LABS: BASOPHILS # (AUTO) 0.1 10^3/uL (0.0-0.1); BASOPHILS % (AUTO) 1 % (0-10); EOSINOPHILS # (AUTO) 0.3 10^3/uL (0.0-0.3); EOSINOPHILS % (AUTO) 3 % (0-10); HEMATOCRIT 45 % (35-52); HEMOGLOBIN 14.5 g/dL (11.5-16.0); LYMPHOCYTES # (AUTO) 2.9 X 10^3 (1.0-4.0); LYMPHOCYTES % (AUTO) 24 % (12-44); MEAN CORPUSCULAR HEMOGLOBIN 28 pg (25-34); MEAN CORPUSCULAR HGB CONC 32 g/dL (32-36); MEAN CORPUSCULAR VOLUME 87 fL (80-99); MEAN PLATELET VOLUME 10.6 fL (9.0-12.2); MONOCYTES # (AUTO) 0.9 X 10^3 (0.0-1.0); MONOCYTES % (AUTO) 7 % (0-12); NEUTROPHILS # (AUTO) 7.7 X 10^3 (1.8-7.8); NEUTROPHILS % (AUTO) 65 % (42-75); PLATELET COUNT 317 10^3/uL (130-400); WHITE BLOOD COUNT 11.9 10^3/uL (4.3-11.0)
--- NOTE | 2021-08-07 08:08 | Diagnostic Imaging Report ---
Clinical Indication: Patient with left chest wall pain. Exam: Portable chest x-ray upright view. Comparisons: Chest x-ray dated 07/27/2021. Findings: There is interval progression of consolidation in the right lung base. Stable airspace opacity in the right lung apex. A small right pleural effusion is suspected. There is improved aeration in the left lung base. The remainder of the lungs are clear. Pulmonary vasculature and cardiac silhouette are within normal limits. The remainder of this exam shows no significant interval change compared to the prior study of comparison. IMPRESSION: 1: There is slight progression of consolidation involving the right lung base. Suspected small right pleural effusion. 2: Stable airspace opacity involving the right lung apex. Dictated by: Dictated on workstation # [id number]
[2021-08-07 08:18] LABS: INR 1.1 (0.8-1.4); PROTHROMBIN TIME PATIENT 14.6 SEC (12.2-14.7)
[2021-08-07 08:30] LABS: ALBUMIN 3.3 GM/DL (3.2-4.5); BILIRUBIN,TOTAL 0.3 MG/DL (0.1-1.0); CALCIUM 9.1 MG/DL (8.5-10.1); CREATININE SERUM 0.44 MG/DL (0.60-1.30); POTASSIUM 3.7 MMOL/L (3.6-5.0); TOTAL PROTEIN 6.5 GM/DL (6.4-8.2)
[2021-08-07] MEDS ORDERED: DOXY100T2 PO (08:43)
[2021-08-07 09:04] VITALS: BP 129/82
== END 2021-08-07 09:04 | disposition home or self-care (01) ==
LOC: EDUNIT# 07:23 → ER FS 07:25
DX: R07.89 Other chest pain (principal); J90 Pleural effusion, not elsewhere classified; J44.9 Chronic obstructive pulmonary disease, unspecified; I10 Essential (primary) hypertension; F41.9 Anxiety disorder, unspecified; F32.9 Major depressive disorder, single episode, unspecified; K21.9 Gastro-esophageal reflux disease without esophagitis; F17.290 Nicotine dependence, other tobacco product, uncomplicated; Z86.73 Personal history of transient ischemic attack (TIA), and cerebral infarction without residual deficits; Z79.899 Other long term (current) drug therapy; Z79.82 Long term (current) use of aspirin
CPT/HCPCS: 36415; 71045; 80053; 83880; 84484; 85025; 85610; 85730; 93005; 93041

== ENCOUNTER 2021-08-18 17:46 | Emergency (ER) | payer MEDICAID ==
[~2021-08-18] VITALS: Ht 180 cm; Wt 100.0 kg
[~2021-08-18 17:46] MED LIST changes: +DOXY100T2 PO; +MONT-40 PO; -MONT10TA32 PO; +POTA-179 PO; -POTA20TA15 PO
--- OUTSIDE RECORDS SUMMARY | 2021-08-18 17:50 | XMS REPORT | Clinical Summary ---
Author Author [facility] Organization [facility] Address Unknown Phone Unavailable Care Team Providers Care Senior Oracle Pl Sql Developer Name Role Phone Raúl Ross DO PCP Source Comments Some departments are not documenting in the electronic medical record. If you d o not see the information that you expected, contact Release of Information in [facility] Information Management department at [phone] for further assistan ce in locating additional records.[facility] Allergies Comments Active Allergy Reactions Severity Noted Date Varenicline AGITATION Low 08/18/2021 Medications Not on file Active Problems Not on file Encounters Care Team Description Date Type Specialty Rolando Torres MD Navigation Assessment 08/18/2021 Telephone Oncology Joleen Barfield 08/15/2021 Documentation Oncology 08/07/2021 Hospital Radiology Encounter 07/27/2021 Hospital Radiology Encounter 07/26/2021 Hospital Radiology Encounter 07/26/2021 Hospital Radiology Encounter 07/25/2021 Hospital Radiology Encounter 07/25/2021 Hospital Radiology Encounter from Last 3 Months Social History Date Tobacco Use Types Packs/Day Years Used Never Assessed Sex Assigned at Date Recorded Not on file Last Filed Vital Signs Not on file Plan of Treatment Health Maintenance Due Date Last Done Comments HIV SCREENING 1984 DTAP/TDAP VACCINES (1 - 1987 Tdap) HEPATITIS C SCREENING 1987 PHYSICAL (COMPREHENSIVE) 1987 EXAM CERVICAL CANCER SCREENING 1990 BREAST CANCER SCREENING 2009 COLORECTAL CANCER 2019 SCREENING SHINGLES RECOMBINANT 2019 VACCINE (1 of 2) INFLUENZA VACCINE 04/17/2021 Procedures Comments Procedure Name Priority Date/Time Associated Diag nosis GENERAL RAD CHEST Routine 08/07/2021 EXTERNAL IMAGING 12:00 AM CHIPPER FEEDER GENERAL RAD CHEST Routine 07/27/2021 EXTERNAL IMAGING 12:00 AM CHIPPER FEEDER GENERAL RAD CHEST Routine 07/26/2021 EXTERNAL IMAGING 12:05 AM CHIPPER FEEDER GENERAL RAD CHEST Routine 07/26/2021 EXTERNAL IMAGING 12:[address] CHEST EXTERNAL IMAGING Routine 07/25/2021 12:05 AM CHIPPER FEEDER GENERAL RAD CHEST Routine 07/25/2021 EXTERNAL IMAGING 12:00 AM CHIPPER FEEDER from Last 3 Months Results * GENERAL RAD CHEST EXTERNAL IMAGING (08/07/2021 12:00 AM CHIPPER FEEDER) Only the most recent of 5 results within the time period is included. Modality Anatomical Region Laterality Computed Radiography Specimen Narrative Scheduling, Silent - 08/17/2021 9:05 AM CHIPPER FEEDER This order has been auto finalized and does not contain a result. * CT CHEST EXTERNAL IMAGING (07/25/2021 12:05 AM CHIPPER FEEDER) Modality Anatomical Region Laterality Computed Radiography Specimen Narrative Scheduling, Silent - 08/17/2021 9:06 AM CHIPPER FEEDER This order has been auto finalized and does not contain a result. from Last 3 Months Insurance Type Payer Benefit Subscriber ID Effective Phone Address Plan / Dates Group Medicaid [facility] MEDICAID [facility] [id number] 2020-P [address] [facility] [address] [place] [address]96 Advance Directives Patient Environmental Solutions Engineer Explanation Type Date Recorded Advance Directive/DPOA Care Teams Start Date End Date Senior Oracle Pl Sql Developer Relationship Specialty 08/15/21 Raúl Ross DO PCP - General [place] [address] [place] [address]
--- OUTSIDE RECORDS SUMMARY | 2021-08-18 17:50 | XMS REPORT | Encounter Summary ---
Author Author [facility] Organization [facility] Address Unknown Phone Unavailable Care Team Providers Care Lapeler Name Role Phone Raúl Ross DO PCP Reason for Visit * Reason Onset Date Comments Navigation Assessment 08/18/2021 Encounter Details Care Team Description Date Type Department Rolando Torres MD [address] [place] [address] Navigation Assessment 08/18/2021 Telephone Oncology: [address] [place] [address] Social History Date Tobacco Use Types Packs/Day Years Used Never Assessed Sex Assigned at Date Recorded Not on file documented as of this encounter Plan of Treatment Not on filedocumented as of this encounter Visit Diagnoses Not on filedocumented in this encounter Care Teams Start Date End Date Lapeler Relationship Specialty 08/15/21 Raúl Ross DO PCP - [address] [address] documented as of this encounter
--- OUTSIDE RECORDS SUMMARY | 2021-08-18 17:50 | XMS REPORT | Encounter Summary ---
Author Author [facility] Organization [facility] Address Unknown Phone Unavailable Care Team Providers Care High [employer] Art Teacher Name Role Phone PCP Unavailable Encounter Details Care Team Description Date Type Department 07/26/2021 Hospital Imaging: [facility] Encounter [facility] [address] [place] [address] Social History Date Tobacco Use Types Packs/Day Years Used Never Assessed Sex Assigned at Date Recorded Not on file documented as of this encounter Discharge Disposition Code Departure Means Destination Disposition Home Home or Self Care documented in this encounter Plan of Treatment Not on filedocumented as of this encounter Procedures Comments Procedure Name Priority Date/Time Associated Diag nosis GENERAL RAD CHEST Routine 07/26/2021 EXTERNAL IMAGING 12:05 AM DRYING MACHINE BACK TENDER documented in this encounter Results * GENERAL RAD CHEST EXTERNAL IMAGING (07/26/2021 12:05 AM DRYING MACHINE BACK TENDER) Modality Anatomical Region Laterality Computed Radiography Specimen Narrative Scheduling, Silent - 08/17/2021 9:03 AM DRYING MACHINE BACK TENDER This order has been auto finalized and does not contain a result. documented in this encounter Visit Diagnoses Not on filedocumented in this encounter
--- OUTSIDE RECORDS SUMMARY | 2021-08-18 17:50 | XMS REPORT | Encounter Summary ---
Author Author [facility] Organization [facility] Address Unknown Phone Unavailable Care Team Providers Care Wire Border Assembler Name Role Phone PCP Unavailable Encounter Details Care Team Description Date Type Department 07/25/2021 Hospital Imaging: [facility], Encounter [facility] [address] [place] [address] Social History Date Tobacco Use Types Packs/Day Years Used Never Assessed Sex Assigned at Date Recorded Not on file documented as of this encounter Discharge Disposition Code Departure Means Destination Disposition Home Home or Self Care documented in this encounter Plan of Treatment Not on filedocumented as of this encounter Procedures Comments Procedure Name Priority Date/Time Associated Diag nosis CT CHEST EXTERNAL IMAGING Routine 07/25/2021 12:05 AM AUTOMOTIVE SERVICE MANAGEMENT TEACHER documented in this encounter Results * CT CHEST EXTERNAL IMAGING (07/25/2021 12:05 AM AUTOMOTIVE SERVICE MANAGEMENT TEACHER) Modality Anatomical Region Laterality Computed Radiography Specimen Narrative Scheduling, Silent - 08/17/2021 9:06 AM AUTOMOTIVE SERVICE MANAGEMENT TEACHER This order has been auto finalized and does not contain a result. documented in this encounter Visit Diagnoses Not on filedocumented in this encounter
--- OUTSIDE RECORDS SUMMARY | 2021-08-18 17:50 | XMS REPORT | Encounter Summary ---
Author Author [facility] Organization [facility] Address Unknown Phone Unavailable Care Team Providers Care Entry Level Account Manager Name Role Phone PCP Unavailable Encounter Details Care Team Description Date Type Department 08/07/2021 Hospital Imaging: [facility], Encounter [facility] [address] [place] [address] Social History Date Tobacco Use [...] CHEST Routine 08/07/2021 EXTERNAL IMAGING 12:00 AM BRIDGE BUILDER documented in this encounter Results * GENERAL RAD CHEST EXTERNAL IMAGING (08/07/2021 12:00 AM BRIDGE BUILDER) Modality Anatomical Region Laterality Computed Radiography Specimen Narrative Scheduling, Silent - 08/17/2021 9:05 AM BRIDGE BUILDER This order has been auto finalized and does not contain a result. documented in this encounter Visit Diagnoses Not on filedocumented in this encounter
--- OUTSIDE RECORDS SUMMARY | 2021-08-18 17:50 | XMS REPORT | Encounter Summary ---
Author Author [facility] Organization [facility] Address Unknown Phone Unavailable Care Team Providers Care Lining Layer Name Role Phone Raúl Ross DO PCP Encounter Details Care Team Description Date Type Department Joleen Barfield 08/15/2021 Documentation Oncology: [facility] Cancer [address] [place] [address] Social History Date Tobacco Use Types Packs/Day Years Used Never Assessed Sex Assigned at Date Recorded Not on file documented as of this encounter Plan of Treatment Not on filedocumented as of this encounter Visit Diagnoses Not on filedocumented in this encounter Care Teams Start Date End Date Lining Layer Relationship Specialty 08/15/21 Raúl Ross DO PCP - [address] [address] documented as of this encounter
--- OUTSIDE RECORDS SUMMARY | 2021-08-18 17:50 | XMS REPORT | Encounter Summary ---
Author Author [facility] Organization [facility] Address Unknown Phone Unavailable Care Team Providers Care Contract Runner Name Role Phone PCP Unavailable Encounter Details Care Team Description Date Type Department 07/25/2021 Hospital Imaging: [facility], Encounter Main [facility] [address] [place] [address] Social History Date Tobacco Use [...] Associated Diag nosis GENERAL RAD CHEST Routine 07/25/2021 EXTERNAL IMAGING 12:00 AM REMOTE MEDICAL CODER documented in this encounter Results * GENERAL RAD CHEST EXTERNAL IMAGING (07/25/2021 12:00 AM REMOTE MEDICAL CODER) Modality Anatomical Region Laterality Computed Radiography Specimen Narrative Scheduling, Silent - 08/17/2021 9:05 AM REMOTE MEDICAL CODER This order has been auto finalized and does not contain a result. documented in this encounter Visit Diagnoses Not on filedocumented in this encounter
--- OUTSIDE RECORDS SUMMARY | 2021-08-18 17:50 | XMS REPORT | Encounter Summary ---
Author Author [facility] Organization [facility] Address Unknown Phone Unavailable Care Team Providers Care Proteomics Scientist Name Role Phone PCP Unavailable Encounter Details Care Team Description Date Type Department 07/27/2021 Hospital Imaging: Main [facility], Encounter Main Hospital 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 documented in this encounter Visit Diagnoses Not on filedocumented in this encounter
--- OUTSIDE RECORDS SUMMARY | 2021-08-18 17:50 | XMS REPORT | Encounter Summary ---
Author Author [facility] Organization [facility] Address Unknown Phone Unavailable Care Team Providers Care Digital Media Associate Name Role Phone PCP Unavailable Encounter Details Care Team Description Date Type Department 07/26/2021 Hospital Imaging: Main [facility], Encounter Main Hospital [address] [facility] [place] [address] Social History Date Tobacco Use [...] CHEST Routine 07/26/2021 EXTERNAL IMAGING 12:00 AM CHART CHANGER documented in this encounter Results * GENERAL RAD CHEST EXTERNAL IMAGING (07/26/2021 12:00 AM CHART CHANGER) Modality Anatomical Region Laterality Computed Radiography Specimen Narrative Scheduling, Silent - 08/17/2021 9:03 AM CHART CHANGER This order has been auto finalized and does not contain a result. documented in this encounter Visit Diagnoses Not on filedocumented in this encounter
[2021-08-18] MEDS ORDERED: RT-ALBUTEROL/IPRATROPIUM 3 ML (DUONEB) VIAL INH ONE (18:15)
[2021-08-18] MEDS ORDERED: methylPREDNISolone 125 MG (Solu-MEDROL) VIAL IVP ONE (18:15)
--- NOTE | 2021-08-18 18:29 | Diagnostic Imaging Report ---
INDICATION: Hypoxemia, shortness of breath Portable chest 6:20 PM There is elevation of the right hemidiaphragm that appears to be at least partially due to subpulmonic effusion. There is pulmonary vascular congestion with interstitial edema. IMPRESSION: Pulmonary venous congestion with increasing right pleural effusion compared to 08/07/2021. Dictated by: Dictated on workstation # [id number]
[2021-08-18 18:32] LABS: HEMATOCRIT 52 % (35-52); HEMOGLOBIN 17.1 g/dL (11.5-16.0); WHITE BLOOD COUNT 11.8 10^3/uL (4.3-11.0)
[2021-08-18 18:33] LABS: BASOPHILS % (AUTO) 1 % (0-10); EOSINOPHILS # (AUTO) 0.3 10^3/uL (0.0-0.3); EOSINOPHILS % (AUTO) 2 % (0-10); LYMPHOCYTES # (AUTO) 3.7 X 10^3 (1.0-4.0); LYMPHOCYTES % (AUTO) 31 % (12-44); MEAN CORPUSCULAR HEMOGLOBIN 28 pg (25-34); MEAN CORPUSCULAR HGB CONC 33 g/dL (32-36); MEAN CORPUSCULAR VOLUME 86 fL (80-99); MEAN PLATELET VOLUME 11.1 fL (9.0-12.2); MONOCYTES # (AUTO) 0.8 X 10^3 (0.0-1.0); MONOCYTES % (AUTO) 7 % (0-12); NEUTROPHILS % (AUTO) 59 % (42-75); PLATELET COUNT 365 10^3/uL (130-400)
[2021-08-18 18:34] LABS: BASOPHILS # (AUTO) 0.1 10^3/uL (0.0-0.1)
[2021-08-18 18:49] LABS: INR 1.1 (0.8-1.4); PROTHROMBIN TIME PATIENT 14.1 SEC (12.2-14.7)
--- NOTE | 2021-08-18 18:54 | ED General ---
General Chief Complaint: Abdominal/GI Problems Stated Complaint: SOB Nursing Triage Note: Patient has presented to ER with upper abd pain, vomiting, diarrhea earlier today, feels short of breath, and very dizzy. Patient reports became very sick while sitting in a deer stand. History of Present Illness Date Seen by Provider: Aug 18, 2021 Time Seen by Provider: 18:47 Initial Comments Patient presenting to the emergency department for evaluation of shortness of breath in the setting of being diagnosed with lung cancer. She is going to see for her cancer care for a second opinion. She also has COPD and wears 2 L of oxygen at baseline but they have been increasing her oxygen to 3 L at home to give her more comfort. Patient says that she had a large effusion that was drained when she was in the hospital last time. She says that she is very scared currently. She denied any pain to me and she is in no acute distress with normal vital signs other than slight tachycardia noted. Allergies and Home Medications Allergies Coded Allergies: iodine (Verified Allergy, Unknown, 02/12/19) clindamycin (Verified Adverse Reaction, Mild, Vomiting; Dizziness, 07/26/21) diphenhydramine (Verified Adverse Reaction, Unknown, eyes water, 02/12/19) Patient Home Medication List Home Medication List Reviewed: Yes Albuterol Sulfate (Proair Hfa) 1 Puff Puff, 2 PUFF IH Q4H PRN for SHORTNESS OF BREATH, (Reported) Entered as Reported by: MATT BUSH on 07/26/21 1044 Alprazolam (Alprazolam) 1 Mg Tablet, 1 MG PO TID, (Reported) Entered as Reported by: MARILEE KHANNA on 07/26/21 0743 Amitriptyline HCl (Amitriptyline HCl) 50 Mg Tablet, 50-100 MG PO HS, (Reported) Entered as Reported by: MATT BUSH on 07/26/21 1044 Amoxicillin/Potassium Clav (Augmentin 875-125 Tablet) 1 Each Tablet, 1 EACH PO BID Prescribed by: MAGGIE SANCHEZ on 07/27/21 1031 Aspirin (Aspirin EC) 81 Mg Tablet.dr, 81 MG PO DAILY, (Reported) Entered as Reported by: MATT BUSH on 07/26/21 1044 Doxycycline Hyclate (Doxycycline Hyclate) 100 Mg Tablet, 100 MG PO BID Prescribed by: SEBASTIAN ELIZABETH on 08/07/21 0843 Fluticasone/Umeclidin/Vilanter (Trelegy Ellipta 200-62.5-25) 1 Each Blst.w.dev, 1 INH INH DAILY, (Reported) Entered as Reported by: MARILEE KHANNA on 07/26/21 07 Gabapentin (Gabapentin) 600 Mg Tablet, 600 MG PO TID, (Reported) Entered as Reported by: MARILEE KHANNA on 07/26/21 07 Methocarbamol (Methocarbamol) 750 Mg Tablet, 750 MG PO BID, (Reported) Entered as Reported by: MARILEE KHANNA on 07/26/21 07 Montelukast Sodium (Montelukast Sodium) 10 Mg Tablet, 10 MG PO DAILY, (Reported) Entered as Reported by: MATT BUSH on 07/26/21 1044 Nicotine (Nicoderm Cq) 1 Each Patch.td24, 14 MG TD DAILY Prescribed by: SAVANNA SANTILLAN on 07/27/21 1358 Pantoprazole Sodium (Pantoprazole Sodium) 40 Mg Tablet.dr, 40 MG PO DAILY, (Reported) Entered as Reported by: MARILEE KHANNA on 07/26/21 07 Propranolol HCl (Propranolol HCl) 20 Mg Tablet, 20 MG PO TID, (Reported) Entered as Reported by: MARILEE KHANNA on 07/26/21742 Sertraline HCl (Sertraline HCl) 50 Mg Tablet, 50 MG PO DAILY, (Reported) Entered as Reported by: MARILEE KHANNA on 07/26/21742 Review of Systems Review of Systems Constitutional: no symptoms reported EENTM: no symptoms reported Respiratory: cough, short of breath Cardiovascular: no symptoms reported Gastrointestinal: no symptoms reported Musculoskeletal: no symptoms reported Skin: no symptoms reported Psychiatric/Neurological: No Symptoms Reported All Other Systems Reviewed Negative Unless Noted: Yes Past Qwrscpa-Ceesfl-Izzmay Hx Patient Social History Tobacco Use?: No Use of E-Cig and/or Vaping dev: No Substance use?: No Alcohol Use?: No Pt feels they are or have been: No Immunizations Up To Date First/Initial COVID19 Vaccinat: 12/03/20 Second COVID19 Vaccination Delta: 01/15/21 Seasonal Allergies Seasonal Allergies: Yes Past Medical History Surgery/Hospitalization HX: COPD, Pneumonia, HTN, High Cholesterol, GERD, Depression Surgeries: Yes Section, Gallbladder, Hysterectomy Respiratory: Yes Asthma, COPD Cardiac: Yes High Cholesterol Neurological: Yes Neuropathy, Stroke Genitourinary: No Gastrointestinal: No Musculoskeletal: Yes Chronic Back Pain Endocrine: No HEENT: No Cancer: No Psychosocial: Yes Anxiety, Depression Integumentary: No Blood Disorders: No Family Medical History Cancer Physical Exam Vital Signs Vital Signs - First Documented 08/18/21 18:29 Temp 36.5 Pulse 105 Resp 22 B/P (MAP) 116/67 (83) Capillary Refill : Height, Weight, BMI Height: 5'2.00" Weight: 160lbs. oz. 72.914539tg; 30.00 BMI Method:Stated General Appearance: Chronically ill, Mild Distress HEENT: PERRL/EOMI Neck: Supple Respiratory: Crackles, Decreased Breath Sounds, Expiration, Inspiration, Wheezing Cardiovascular: Regular Rate, Rhythm Gastrointestinal: Non Tender, Soft Extremity: Normal Capillary Refill, No Pedal Edema Neurologic/Psychiatric: Alert, Oriented x3 Skin: Warm/Dry Progress/Results/Core Measures Suspected Sepsis SIRS Temperature: Pulse: 105 Respiratory Rate: 22 Laboratory Tests 08/18/21 18:19: White Blood Count 11.8H Blood Pressure 116 /67 Mean: 83 Laboratory Tests 08/18/21 18:19: Creatinine 0.41L, INR Comment 1.1, Platelet Count 365, Total Bilirubin 0.4 Results/Orders Lab Results Laboratory Tests Test 08/18/21 18:19 Range/Units White Blood Count 11.8 H 4.3-11.0 10^3/uL Red Blood Count 6.10 H 3.80-5.11 10^6/uL Hemoglobin 17.1 H 11.5-16.0 g/dL Hematocrit 52 35-52 % Mean Corpuscular Volume 86 80-99 fL Mean Corpuscular Hemoglobin 28 25-34 pg Mean Corpuscular Hemoglobin Concent 33 32-36 g/dL Red Cell Distribution Width 12.9 10.0-14.5 % Platelet Count 365 130-400 10^3/uL Mean Platelet Volume 11.1 9.0-12.2 fL Immature Granulocyte % (Auto) 0 % Neutrophils (%) (Auto) 59 42-75 % Lymphocytes (%) (Auto) 31 12-44 % Monocytes (%) (Auto) 7 0-12 % Eosinophils (%) (Auto) 2 0-10 % Basophils (%) (Auto) 1 0-10 % Neutrophils # (Auto) 7.0 1.8-7.8 X 10^3 Lymphocytes # (Auto) 3.7 1.0-4.0 X 10^3 Monocytes # (Auto) 0.8 0.0-1.0 X 10^3 Eosinophils # (Auto) 0.3 0.0-0.3 10^3/uL Basophils # (Auto) 0.1 0.0-0.1 10^3/uL Immature Granulocyte # (Auto) 0.0 0.0-0.1 10^3/uL Prothrombin Time 14.1 12.2-14.7 SEC INR Comment 1.1 0.8-1.4 Activated Partial Thromboplast Time 27 24-35 SEC Sodium Level 137 135-145 MMOL/L Potassium Level 3.8 3.6-5.0 MMOL/L Chloride Level 100 98-107 MMOL/L Carbon Dioxide Level 24 21-32 MMOL/L Anion Gap 13 5-14 MMOL/L Blood Urea Nitrogen 3 L 7-18 MG/DL Creatinine 0.41 L 0.60-1.30 MG/DL Estimat Glomerular Filtration Rate 163 BUN/Creatinine Ratio 7 Glucose Level 132 H 70-105 MG/DL Calcium Level 9.1 8.5-10.1 MG/DL Corrected Calcium 9.9 8.5-10.1 MG/DL Total Bilirubin 0.4 0.1-1.0 MG/DL Aspartate Amino Transf (AST/SGOT) 49 H 5-34 U/L Alanine Aminotransferase (ALT/SGPT) 41 0-55 U/L Alkaline Phosphatase 811 H 40-136 U/L Troponin I < 0.30 <0.30 NG/ML Pro-B-Type Natriuretic Peptide 298.3 H <75.0 PG/ML Total Protein 6.7 6.4-8.2 GM/DL Albumin 3.0 L 3.2-4.5 GM/DL My Orders Orders - ELIZABETH ROTH DO Iv/Invasive Line Insertion .IV start (08/18/21 18:07) Cbc With Automated Diff (08/18/21 18:07) Comprehensive Metabolic Panel (08/18/21 18:07) Chest 1 View Ap/Pa Only (08/18/21 18:07) Partial Thromboplastin Time (12/2/21 18:07) Probnp Fs (08/18/21 18:07) Protime With Inr (08/18/21 18:07) Troponin I Fs (08/18/21 18:07) Methylprednisolone Sod Succ (Solu-Medrol (08/18/21 18:15) Albuterol/Ipra Inhalation Soln (Duoneb I (08/18/21 18:15) Svn Small Volume Nebulizer (08/18/21 18:07) Medications Given in ED Current Medications Medications Dose Ordered Sig/Jason Route Start Time Stop Time Status Last Admin Dose Admin Albuterol/ Ipratropium 3 ml ONCE ONCE INH 08/18/21 18:15 08/18/21 18:16 DC 08/18/21 19:09 3 ML Methylprednisolone Sodium Succinate 125 mg ONCE ONCE IVP 08/18/21 18:15 08/18/21 18:16 DC 08/18/21 19:09 125 MG Vital Signs/I&O 08/18/21 18:29 Temp 36.5 Pulse 105 Resp 22 B/P (MAP) 116/67 (83) Capillary Refill : Blood Pressure Mean: 83 Progress Note : Progress Note Patient did improve in the emergency department as her oxygen saturation stayed in the mid to low 90s at least above 93% on her baseline 2 L. Patient has findings of a small pleural effusion on the right with pulmonary venous congestion. She does have a history of COPD and I do think she would benefit from the steroids. I had extensive discussion with patient regarding disposition planning and she says she feels much better and would like to go home. Patient says she is not on any diuretics at this time so I told her we could try and start her on diuretics to see if this would help her breathing and I recommended doing her nebulizer every 4 hours in addition to Zithromax and steroids. I did not order a D-dimer given her contrast allergy and we do not have a VQ scan available here and given how abnormal her breath sounds are I felt pulmonary embolism was less likely. I told patient to keep her follow-up appoint with [facility] on Sunday and come back to the emergency department in the interim with any new or worsening pain shortness of breath or other general concerns. Patient and family aware and agreeable with plan and verbalized understanding of the above instructions. Departure Impression Primary Impression: Pleural effusion on right Additional Impression: COPD with exacerbation Disposition: 01 HOME, SELF-CARE Condition: Stable Departure-Patient Inst. Referrals: WILMA MUNOZ DO (PCP/Family) Primary Care Physician Patient Instructions: Chronic Obstructive Pulmonary Disease (COPD) (DC), Pleural Effusion (DC) Scripts Prednisone (Prednisone) 20 Mg Tab 40 MG PO DAILY, #8 TAB 0 Refills Prov: ELIZABETH ROTH DO 08/18/21 Azithromycin (Zithromax) 250 Mg Tablet 250 MG PO UD, #6 TAB TAKE 2 TABLETS TODAY, THEN TAKE 1 TABLET DAILY FOR 4 MORE DAYS Prov: ELIZABETH ROTH DO 08/18/21 Furosemide (Lasix) 20 Mg Tablet 20 MG PO DAILY, #10 TAB Prov: ELIZABETH ROTH DO 08/18/21 ELIZABETH ROTH DO Aug 18, 2021 18:54
[2021-08-18 19:08] LABS: POTASSIUM 3.8 MMOL/L (3.6-5.0); SODIUM 137 MMOL/L (135-145)
[2021-08-18 19:09] LABS: ALANINE AMINOTRANSFERASE 41 U/L (0-55); ALKALINE PHOSPHATASE 811 U/L (40-136); BILIRUBIN,TOTAL 0.4 MG/DL (0.1-1.0); BUN/CREATININE RATIO 7; CALCIUM 9.1 MG/DL (8.5-10.1); CARBON DIOXIDE 24 MMOL/L (21-32); CHLORIDE 100 MMOL/L (98-107); CREATININE SERUM 0.41 MG/DL (0.60-1.30); GFR ESTIMATED 163; GLUCOSE 132 MG/DL (70-105); TOTAL PROTEIN 6.7 GM/DL (6.4-8.2)
[2021-08-18] MEDS ORDERED: FUROSEMIDE 40 MG/4 ML INJ (LASIX) IVP ONE (20:00)
[2021-08-18] MEDS ORDERED: FURO-125 PO (20:03)
[2021-08-18] MEDS ORDERED: PRD20T PO (20:03)
[2021-08-18] MEDS ORDERED: AZIT250T PO (20:03)
[2021-08-18 20:15] VITALS: BP 147/106
== END 2021-08-18 20:24 | disposition home or self-care (01) ==
LOC: EDUNIT# 17:46 → ER FS 17:47
DX: J90 Pleural effusion, not elsewhere classified (principal); J44.1 Chronic obstructive pulmonary disease with (acute) exacerbation; I10 Essential (primary) hypertension; F32.9 Major depressive disorder, single episode, unspecified; F41.9 Anxiety disorder, unspecified; R00.0 Tachycardia, unspecified; Z86.73 Personal history of transient ischemic attack (TIA), and cerebral infarction without residual deficits; Z79.82 Long term (current) use of aspirin; Z79.899 Other long term (current) drug therapy
CPT/HCPCS: 36415; 71045; 80053; 83880; 84484; 85025; 85610; 85730

== ENCOUNTER 2021-08-23 09:33 | Emergency (ER) | payer MEDICAID ==
[~2021-08-23] VITALS: Ht 157.4 cm; Wt 52.1 kg
[~2021-08-23 09:33] MED LIST changes: +AZIT250T PO; +FURO-125 PO; +PRD20T PO
--- OUTSIDE RECORDS SUMMARY | 2021-08-23 09:41 | XMS REPORT | Clinical Summary ---
Author Author [facility] Organization [facility] Address Unknown Phone Unavailable Care Team Providers Care Pellet Press Operator Name Role Phone Raúl Ross DO PCP Source Comments Some departments are not documenting in the electronic medical record. If you d o not see the information that you expected, contact Release of Information in [facility] [employer] Information Management department at [phone] for further assistan ce in locating additional records.[facility] Allergies Comments Active Allergy Reactions Severity Noted Date Varenicline AGITATION Low 08/18/2021 Iodine HIVES Medium 08/22/2021 Medications End Date Status Medication Sig Dispensed Refills Start Date Active albuterol 0.083% 0 (PROVENTIL) 2.5 mg /3 mL 1 (0.083 %) nebulizer solution Active ALPRAZolam (XANAX) 1 mg Take 1 mg by 0 tablet mouth every 8 8 hours as needed. Active clindamycin (CLEOCIN) 300 0 mg capsule 1 Active propranoloL (INDERAL) 20 Take 20 mg by 0 07/19 mg tablet mouth three 1 times daily. Active atorvastatin (LIPITOR) 40 Take 40 mg by 0 07/18 mg tablet mouth at 1 bedtime daily. Active azithromycin (ZITHROMAX) 0 250 mg tablet 1 Active fluconazole (DIFLUCAN) TAKE 1 TABLET 0 02 200 mg tablet BY MOUTH 3 1 TIMES WEEKLY Active furosemide (LASIX) 20 mg Take 20 mg by 0 08/19 tablet mouth daily. 1 Active montelukast (SINGULAIR) Take 10 mg by 0 10 mg tablet mouth daily. 1 Active nicotine (NICODERM CQ 0 STEP 2) 14 mg/day patch 1 Active predniSONE (DELTASONE) 20 Take 40 mg by 0 mg tablet mouth daily. 1 Active INCRUSE ELLIPTA 62.5 INHALE 1 PUFF 0 mcg/actuation inhalation BY MOUTH 1 disk DAILY Active oxyCODONE (ROXICODONE) 5 Take one 100 tablet 0 1 mg tablet tablet by 1 mouth every 6 hours as needed for Pain 08/22/2021 Discontinued (Removed from [facility] Med List) clonazePAM (KLONOPIN) 1 Take 1 mg by 0 mg tablet mouth three 1 times daily. 08/22/2021 Discontinued (Removed from [facility] Med List) HYDROcodone/acetaminophen TAKE 1 TABLET 0 07/19 (NORCO) 5/325 mg tablet BY MOUTH FOUR 1 TIMES DAILY NEEDED 08/22/2021 Discontinued (Removed from P [facility] Med List) zolpidem (AMBIEN) 10 mg Take 10 mg by 0 tablet mouth daily 8 as needed. Active Problems Problem Noted Date Adenocarcinoma of right lung 08/22/2021 Primary adenocarcinoma of right lung 08/22/2021 Encounters Care Team Description Date Type Specialty Gurwinder Oliver RN 08/23/2021 Telephone Radiology Rolando Torres MD Barlow, Molly, RN Hazel Back, RT(R)(),LRT Claus Ordoñez MD Primary adenocarcinoma of right lung (HC C) 08/22/2021 Hospital Radiology Encounter Rolando Torres MD Davis, Tawnya Arrived 08/22/2021 Clinical Oncology Support Rolando Torres MD Primary adenocarcinoma of right lung (HC C) (Primary Dx); Adenocarcinoma of right lung (HCC) 08/22/2021 Office Visit Oncology Manisha Duckworth 08/22/2021 Clinical Oncology Support 08/22/2021 Travel Rolando Torres MD Navigation Assessment 08/18/2021 Telephone Oncology Joleen Barfield 08/15/2021 Documentation Oncology 08/07/2021 Hospital Radiology Encounter 07/27/2021 Hospital Radiology Encounter 07/26/2021 Hospital Radiology Encounter 07/26/2021 Hospital Radiology Encounter 07/25/2021 Hospital Radiology Encounter 07/25/2021 Hospital Radiology Encounter from Last 3 Months Medical History Medical History Date Comments Unspecified cerebral artery occlusion with cerebral infarction (HCC) On supplemental oxygen therapy Hypertension Back pain Other malignant neoplasm without specification of site (HCC) Social History Date Tobacco Use Types Packs/Day Years Used Current Every Day Smoker Cigarettes 0.5 Smokeless Tobacco: Never Used Tobacco Cessation: Ready to Quit: No Comments Alcohol Use Standard Drinks/Week Yes 5 (1 standard drink = 0.6 o z pure alcohol) Sex Assigned at Date Recorded Not on file Date Recorded COVID-19 Exposure Response 08/22/2021 10:05 AM METAL CASTER In the last month, have you been in contact with No / Unsure someone who was confirmed or suspected to have Coronavirus / COVID-19? Last Filed Vital Signs Reading Time Taken Comments Vital Sign 187/105 08/22/2021 4:45 PM METAL CASTER Blood Pressure 93 08/22/2021 4:45 PM METAL CASTER Pulse 36.9 C (98.4 F) 08/22/2021 3:50 PM METAL CASTER Temperature - - Respiratory Rate 97% 08/22/2021 4:45 PM METAL CASTER Oxygen Saturation - - Inhaled Oxygen Concentration 52.5 kg (115 lb 12.8 oz) 08/22/2021 10:32 AM METAL CASTER Weight 157.5 cm (5' 2") 08/22/2021 10:32 AM METAL CASTER Height 21.18 08/22/2021 10:32 AM METAL CASTER Body Mass Index Plan of Treatment Health Maintenance Due Date Last Done Comments HIV SCREENING 1984 DTAP/TDAP VACCINES ( - 1987 Tdap) HEPATITIS C SCREENING 1987 PHYSICAL (COMPREHENSIVE) 1987 EXAM CERVICAL CANCER SCREENING 1990 BREAST CANCER SCREENING 2009 COLORECTAL CANCER 2019 SCREENING SHINGLES RECOMBINANT 2019 VACCINE (1 of 2) INFLUENZA VACCINE 04/17/2021 Procedures Comments Procedure Name Priority Date/Time Associated Diag nosis CHEST IMMEDIATE POST BELKIS 08/22/2021 PROCEDURE INSP/EXP 4:13 PM METAL CASTER IR THORACENTESIS STAT 08/22/2021 Primary adeno carcinoma of THERAPEUTIC 3:15 PM METAL CASTER right lung (HCC) HC CBC,AUTOMATED Routine 08/22/2021 Primary adeno carcinoma of 1:08 PM METAL CASTER right lung (HCC) HC COMPREHENSIVE Routine 08/22/2021 Primary adeno carcinoma of METABOLIC PANEL 1:08 PM METAL CASTER right lung (HCC) GENERAL RAD CHEST Routine 08/07/2021 EXTERNAL IMAGING 12:00 AM METAL CASTER GENERAL RAD CHEST Routine 07/27/2021 EXTERNAL IMAGING 12:00 AM METAL CASTER GENERAL RAD CHEST Routine 07/26/2021 EXTERNAL IMAGING 12:05 AM METAL CASTER GENERAL RAD CHEST Routine 07/26/2021 EXTERNAL IMAGING 12:[address] CHEST EXTERNAL IMAGING Routine 07/25/2021 12:05 AM METAL CASTER GENERAL RAD CHEST Routine 07/25/2021 EXTERNAL IMAGING 12:00 AM METAL CASTER from Last 3 Months Results * CHEST IMMEDIATE POST PROCEDURE INSP/EXP (08/22/2021 4:13 PM METAL CASTER) Modality Anatomical Region Laterality Computed Radiography Chest Specimen Impressions [facility] - 08/22/2021 5:42 PM METAL CASTER Slightly smaller right pleural effusion. No pneumothorax. Irregular right upper lobe opacity, likely corresponding to reported neoplasm. Finalized by Jennifer Iniguez M.D. on 08/22/2021 5:42 PM. Dictated by Jennifer Iniguez M.D. on 08/22/2021 5:38 PM. Narrative [facility] - 08/22/2021 5:42 PM METAL CASTER CHEST IMMEDIATE POST PROCEDURE INSP/EXP INDICATION: immediate post R thoracentesis COMPARISON STUDY: 08/07/2021 FINDINGS: Lungs/Pleura: Small left pleural effusion. Slightly smaller right pleural effusion following thoracentesis with right basal consolidation. Similar right upper lobe irregular opacity. Heart and Mediastinum: Stable mediastinal contours and heart size. Procedure Note Jennifer Iniguez MD - 08/22/2021 CHEST IMMEDIATE POST PROCEDURE INSP/EXP INDICATION: immediate post R thoracentesis COMPARISON STUDY: 08/07/2021 FINDINGS: Lungs/Pleura: Small left pleural effusion. Slightly smaller right pleural effusion following thoracentesis with right basal consolidation. Similar right upper lobe irregular opacity. Heart and Mediastinum: Stable mediastinal contours and heart size. IMPRESSION Slightly smaller right pleural effusion. No pneumothorax. Irregular right upper lobe opacity, likely corresponding to reported neoplasm. Finalized by Jennifer Iniguez M.D. on 08/22/2021 5:42 PM. Dictated by Jennifer Iniguez M.D. on 08/22/2021 5:38 PM. Performing Organization Address City/State/ZIP Code [place] Number [facility] * IR THORACENTESIS THERAPEUTIC (08/22/2021 3:15 PM METAL CASTER) Modality Anatomical Region Laterality Ultrasound Specimen Impressions [facility] - 08/22/2021 4:17 PM METAL CASTER Successful ultrasound guided right sided thoracentesis with removal of 1650 mL fluid. I, Claus Ordoñez M.D, the attending radiologist, was present for the critical and abreu portions of the procedure with an advanced practice provider, resident, and/or fellow participating. Overlapping portions were non abreu and I was immediately available. I interpret the critical and abreu portion of this procedure to have been the procedural time out and needle access. @TT Approved by Chava Preciado M.D. on 08/22/2021 4:13 PM By my electronic signature, I attest that I have personally reviewed the images for this examination and formulated the interpretations and opinions expressed in this report Finalized by Claus Ordoñez M.D. on 08/22/2021 4:17 PM. Dictated by Chava Preciado M.D. on 08/22/2021 4:13 PM. Narrative [facility] - 08/22/2021 4:17 PM METAL CASTER Ultrasound-guided Right therapeutic Thoracentesis CLINICAL INDICATION: Right pleural effusion SCREEN PRINTING MACHINE OPERATOR: Chava Preciado M.D. and Claus Ordoñez M.D. Sedation Medication: Subcutaneous lidocaine. The risks, benefits, and alternatives to the procedure and sedation were explained, and written informed consent obtained. Ultrasound was used to locate the largest pocket of intrapleural fluid in the right hemithorax. The skin overlying the site was marked, and then prepped and draped in sterile fashion. The site was anesthetized with local injection of 2% lidocaine. A small bore thoracentesis needle and catheter were inserted into the posterior chest at the marked site, and after several mL of pleural fluid were withdrawn, the catheter was inserted and needle withdrawn. A total of 1650 mL of clear, rust colored pleural fluid were drained. The catheter was removed and an occlusive, sterile dressing was applied. The patient tolerated the procedure well and there were no immediate complications. Patient was discharged to the recovery area in stable condition. Immediate and 1 hour follow up chest radiographs were ordered. FINDINGS: Moderate volume free intrathoracic fluid demonstrated on ultrasound. Procedure Note Claus Ordoñez MD - 08/22/2021 Ultrasound-guided Right therapeutic Thoracentesis CLINICAL INDICATION: Right pleural effusion SCREEN PRINTING MACHINE OPERATOR: Chava Preciado M.D. and Claus Ordoñez M.D. Sedation Medication: Subcutaneous lidocaine. The risks, benefits, and alternatives to the procedure and sedation were explained, and written informed consent obtained. Ultrasound was used to locate the largest pocket of intrapleural fluid in the right hemithorax. The skin overlying the site was marked, and then prepped and draped in sterile fashion. The site was anesthetized with local injection of 2% lidocaine. A small bore thoracentesis needle and catheter were inserted into the posterior chest at the marked site, and after several mL of pleural fluid were withdrawn, the catheter was inserted and needle withdrawn. A total of 1650 mL of clear, rust colored pleural fluid were drained. The catheter was removed and an occlusive, sterile dressing was applied. The patient tolerated the procedure well and there were no immediate complications. Patient was discharged to the recovery area in stable condition. Immediate and 1 hour follow up chest radiographs were ordered. FINDINGS: Moderate volume free intrathoracic fluid demonstrated on ultrasound. IMPRESSION Successful ultrasound guided right sided thoracentesis with removal of 1650 mL fluid. I, Claus Ordoñez M.D, the attending radiologist, was present for the critical and abreu portions of the procedure with an advanced practice provider, resident, and/or fellow participating. Overlapping portions were non abreu and I was immediately available. I interpret the critical and abreu portion of this procedure to have been the procedural time out and needle access. @TT Approved by Chava Preciado M.D. on 08/22/2021 4:13 PM By my electronic signature, I attest that I have personally reviewed the images for this examination and formulated the interpretations and opinions expressed in this report Finalized by Claus Ordoñez M.D. on 08/22/2021 4:17 PM. Dictated by Chava Preciado M.D. on 08/22/2021 4:13 PM. Performing Organization Address City/State/ZIP Code [place] Number [facility] * CBC (08/22/2021 1:08 PM METAL CASTER) Pathologist [facility] White Blood 15.2 (H) 4.5 - 11.0 K/UL [facility] Cells RBC 6.27 (H) 4.0 - 5.0 M/UL [facility] Hemoglobin 17.0 (H) 12.0 - 15.0 GM/DL [facility] Hematocrit 52.0 (H) 36 - 45 % [facility] MCV 83.0 80 - 100 FL [facility] MCH 27.1 26 - 34 PG [facility] MCHC 32.7 32.0 - 36.0 G/DL [facility] RDW 13.3 11 - 15 % [facility] Platelet Count 323 150 - 400 K/UL [facility] MPV 9.5 7 - 11 FL [facility] Specimen Blood (substance) Performing Organization Address City/[facility]/ZIP Code P hum[place] Number [facility] [address] [place] [address] * COMPREHENSIVE METABOLIC PANEL (08/22/2021 1:08 PM METAL CASTER) Pathologist [facility] Sodium 137 137 - 147 MMOL/L [facility] Potassium 3.6 3.5 - 5.1 MMOL/L [facility] Chloride 94 (L) 98 - 110 MMOL/L [facility] Glucose 128 (H) 70 - 100 MG/DL [facility] Blood Urea 6 (L) 7 - 25 MG/DL [facility] Nitrogen Creatinine 0.45 0.4 - 1.00 MG/DL [facility] Calcium 9.2 8.5 - 10.6 MG/DL [facility] Total Protein 6.6 6.0 - 8.0 G/DL [facility] Total Bilirubin 0.6 0.3 - 1.2 MG/DL [facility] Albumin 3.6 3.5 - 5.0 G/DL [facility] Alk Phosphatase 1,116 (H) 25 - 110 U/L [facility] AST (SGOT) 126 (H) 7 - 40 U/L [facility] CO2 33 (H) 21 - 30 MMOL/L [facility] ALT (SGPT) 129 (H) 7 - 56 U/L [facility] Anion Gap 10 3 - 12 [facility] eGFR Non >60 >60 mL/min [facility] Comment: [place] The eGFR is not validated f or use in drug dosing adjustments. Continue to use estimated creatinine clearance per dosing reference text. Please contact the Clinical Pharmacist for questions. eGFR >60 >60 mL/min [facility] [place] Comment: The eGFR is not validated for use in drug dosing adjustments. Continue to use estimated creatinine clearance per dosing reference text. Please contact the Clinical Pharmacist for questions. Specimen Blood (substance) Performing Organization Address City/State/ZIP Code [place] Number [facility] [address] [place] [address] * GENERAL RAD CHEST EXTERNAL IMAGING (08/07/2021 12:00 AM METAL CASTER) Only the most recent of 5 results within the time period is included. Modality Anatomical Region Laterality Computed Radiography Specimen Narrative Scheduling, Silent - 08/17/2021 9:05 AM METAL CASTER This order has been auto finalized and does not contain a result. * CT CHEST EXTERNAL IMAGING (07/25/2021 12:05 AM METAL CASTER) Modality Anatomical Region Laterality Computed Radiography Specimen Narrative Scheduling, Silent - 08/17/2021 9:06 AM METAL CASTER This order has been auto finalized and does not contain a result. from Last 3 Months Insurance Type Payer Benefit Subscriber ID Effective Phone Address Plan / Dates Group Medicaid [facility] MEDICAID [facility] [id number] 2020-P [address] [facility] [address] [place] [phone] Advance Directives Patient Steam Fitter Helper Explanation Type Date Recorded Advance Directive/DPOA Date Inactivated Comments Code Status Date Activated 08/22/2021 7:22 PM Full Code 08/22/2021 2:45 PM Provider has discussed Code Status No, discussion no t w/Patient or Family? necessary based on Dx Care Teams Start Date End Date Pellet Press Operator Relationship Specialty 08/15/21 Raúl Ross, PCP - General [place] [address] [place] [address]
--- OUTSIDE RECORDS SUMMARY | 2021-08-23 09:41 | XMS REPORT | Encounter Summary ---
Author Author [facility] Organization [facility] Address Unknown Phone Unavailable Care Team Providers Care Prep Room Supervisor Name Role Phone Raúl Ross DO PCP Encounter Details Care Team Description Date Type Department Gurwinder Oliver RN 08/23/2021 Telephone Interventional Radi ology: [facility], [address], [address] [place] [id number] Social History Date Tobacco Use Types Packs/Day Years Used Current Every Day Smoker Cigarettes 0.5 Smokeless Tobacco: Never Used Comments Alcohol Use Standard Drinks/Week Yes 5 (1 standard drink = 0.6 o z pure alcohol) Sex Assigned at Date Recorded Not on file Date Recorded COVID-19 Exposure Response 08/22/2021 10:05 AM SHEAR OPERATOR HELPER In the last month, have you been in contact with No / Unsure someone who was confirmed or suspected to have Coronavirus / COVID-19? documented as of this encounter Functional Status Date of Assessment Functional Status Response 08/22/2021 Does the patient have a hearing impairment: No 08/22/2021 Does the patient have a visual impairment: Yes 08/22/2021 Does the patient have impaired ambulation: No 08/22/2021 Does the patient have an activity of daily living No (ADL) impairment: 08/22/2021 Does the patient have an instrumental activity of No daily living (IADL) impairment: Date of Assessment Cognitive Status Response 08/22/2021 Does the patient have a cognitive impairment: No documented as of this encounter Miscellaneous Notes * Telephone Encounter - Gurwinder Oliver RN - 08/23/2021 7:37 AM SHEAR OPERATOR HELPER Daughter called to report patient has increased bloody drainage from insertion s ite of Thoracentesis that was completed 08/22/2021 [facility] as well as having some hemoptysis this morning. Recommendation is to go to ER of choice for further evaluation. Daughter agree with plan. R OPERATOR HELPER documented in this encounter Plan of Treatment Not on filedocumented as of this encounter Visit Diagnoses Not on filedocumented in this encounter Additional Health Concerns Noted Time Assessment 08/22/2021 2:15 PM SHEAR OPERATOR HELPER A fall risk assessment has been complet ed for the patient documented as of this encounter Care Teams Start Date End Date Prep Room Supervisor Relationship Specialty 08/15/21 Raúl Ross DO PCP - [place] [phone] documented as of this encounter
--- OUTSIDE RECORDS SUMMARY | 2021-08-23 09:41 | XMS REPORT | Encounter Summary ---
Author Author [facility] Organization [facility] Address Unknown Phone Unavailable Care Team Providers Care Laryngologist Name Role Phone Raúl Ross DO PCP Reason for Referral * Radiology Services (Urgent) - Authorized Diagnoses / Procedures Referred By Contact Referred To Conta ct Specialty Diagnoses Primary adenocarcinoma of right lung (HCC) Procedures IR THORACENTESIS THERAPEUTIC Rolando Torres MD [address] [place] [address] [address] [facility] [address], [address] [place] [address] Radiology Referral ID Status Reason Start Date Expiration Visits Vi sits Date Requested Authorized [id number] Authorized 08/22/2021 08/22/2022 1 1 OGRAPHY AND PRINTS CURATOR Reason for Visit * Radiology Services (Urgent) - Authorized Diagnoses / Procedures Referred By Contact Referred To Conta ct Specialty Diagnoses Primary adenocarcinoma of right lung (HCC) Procedures IR THORACENTESIS THERAPEUTIC Rolando Torres MD [address] [place] [address] [address] [facility] [address], [address] [place] [address] Radiology Referral ID Status Reason Start Date Expiration Visits Vi sits Date Requested Authorized [id number] Authorized 08/22/2021 08/22/2022 1 1 Encounter Details Care Team Description Date Type Department Rolando Torres MD [address] [place] [address] Ofelia Tabares, Hazel Garcia, RT(R)(),LRT Claus Ordoñez MD [address] [facility] [address] [place] [address] Primary adenocarcinoma of right lung (HC C) 08/22/2021 Hospital Interventional Radi ology: Encounter Main [place], [facility] [address] [facility] [address] [place] [address] Social History Date Tobacco Use Types Packs/Day Years Used Current Every Day Smoker Cigarettes 0.5 Smokeless Tobacco: Never Used Comments Alcohol Use Standard Drinks/Week Yes 5 (1 standard drink = 0.6 o z pure alcohol) Sex Assigned at Date Recorded Not on file Date Recorded COVID-19 Exposure Response 08/22/2021 10:05 AM PHOTOGRAPHY AND PRINTS CURATOR In the last month, have you been in contact with No / Unsure someone who was confirmed or suspected to have Coronavirus / COVID-19? documented as of this encounter Last Filed Vital Signs Reading Time Taken Comments Vital Sign 187/105 08/22/2021 4:45 PM PHOTOGRAPHY AND PRINTS CURATOR Blood Pressure 93 08/22/2021 4:45 PM PHOTOGRAPHY AND PRINTS CURATOR Pulse 36.9 C (98.4 F) 08/22/2021 3:50 PM PHOTOGRAPHY AND PRINTS CURATOR Temperature - - Respiratory Rate 97% 08/22/2021 4:45 PM PHOTOGRAPHY AND PRINTS CURATOR Oxygen Saturation - - Inhaled Oxygen Concentration - - Weight - - Height - - Body Mass Index documented in this encounter Functional Status Date of Assessment [...] impairment: No documented as of this encounter Medications at Time of Discharge Start Date End Date Medication Sig Dispensed Refills 07/29/2021 albuterol 0.083% 0 (PROVENTIL) 2.5 mg /3 mL (0.083 %) nebulizer solution 06/06/2018 ALPRAZolam (XANAX) 1 mg Take 1 mg by 0 tablet mouth every 8 hours as needed. 08/04/2021 atorvastatin (LIPITOR) 40 Take 40 mg by 0 mg tablet mouth at bedtime daily. 08/19/2021 azithromycin (ZITHROMAX) 0 250 mg tablet 07/11/2021 clindamycin (CLEOCIN) 300 0 mg capsule 08/05/2021 fluconazole (DIFLUCAN) TAKE 1 TABLET 0 200 mg tablet BY MOUTH 3 TIMES WEEKLY 08/19/2021 furosemide (LASIX) 20 mg Take 20 mg by 0 tablet mouth daily. 08/05/2021 INCRUSE ELLIPTA 62.5 INHALE 1 PUFF 0 mcg/actuation inhalation BY MOUTH disk DAILY 08/01/2021 montelukast (SINGULAIR) Take 10 mg by 0 10 mg tablet mouth daily. 07/30/2021 nicotine (NICODERM CQ 0 STEP 2) 14 mg/day patch 08/22/2021 oxyCODONE (ROXICODONE) 5 Take one 100 tablet 0 mg tablet tablet by mouth every 6 hours as needed for Pain 08/19/2021 predniSONE (DELTASONE) 20 Take 40 mg by 0 mg tablet mouth daily. 07/19/2021 propranoloL (INDERAL) 20 Take 20 mg by 0 mg tablet mouth three times daily. documented as of this encounter Discharge Disposition Code Departure Means Destination Disposition Wheelchair Home or Self Care documented in this encounter Progress Notes * Leola Frederick RN - 08/22/2021 4:30 PM PHOTOGRAPHY AND PRINTS CURATOR No improvement seen with Bp after Metoprolol administration. Pt states she has R x Propranolol in vehicle. Per POLICE STENOGRAPHER pt should take her scheduled dose after dischar ge. 1645 Discharge instructions reviewed and pt verbalizes understaning. Pt ready fo r d/c at this time. Denies pain, sob or cp. Pt is able to ambulate to transfer s elf to w/c. Pt taken to exit in w/c with all belongings and printed AVS. NAD VSS . Discharge instructions discussed with daughter in vehicle. Pt on home O2 which and tank is low during discharge. Daughter states her baseline is 91% on RA and will be stable until they arrive home. OGRAPHY AND PRINTS CURATOR * Leola Frederick RN - 08/22/2021 4:15 PM PHOTOGRAPHY AND PRINTS CURATOR POLICE STENOGRAPHER made aware of bp being elevated. Metoprolol ordered and administered. Post pr ocedure CXR performed and checked with Ozzy WALSH, no pneumothorax. Pt provided P O water. OGRAPHY AND PRINTS CURATOR * Ofelia Tabares RN - 08/22/2021 3:24 PM PHOTOGRAPHY AND PRINTS CURATOR Sedation physician present in room. Recent vitals and patient condition reviewed between sedating physician and nurse. Reassessment completed. Determination made to proceed with planned sedation. OGRAPHY AND PRINTS CURATOR documented in this encounter H&P Notes * Tati Llamas APRN-NP - 08/22/2021 2:41 PM PHOTOGRAPHY AND PRINTS CURATOR Pre Procedure History and Physical/Sedation Plan Procedure Date: 08/22/2021 Planned Procedure(s): U/S guided diagnostic/therapeutic right-sided thoracentes is Indication: Pleural Effusion Chief Complaint: Pleural effusion History of Present Illness: Trixie Zapata is a 51 y.o. female. Pt presents to IR f or thoracentesis. Patient Active Problem List Diagnosis Date Noted Adenocarcinoma of right lung (HCC) 08/22/2021 Primary adenocarcinoma of right lung (HCC) 08/22/2021 Medical History: Diagnosis Date Back pain Hypertension On supplemental oxygen therapy Other malignant neoplasm without specification of site (HCC) Unspecified cerebral artery occlusion with cerebral infarction (HCC) No past surgical history on file. Medications Prior to Admission Medication Sig Dispense Refill Last Dose albuterol 0.083% (PROVENTIL) 2.5 mg /3 mL (0.083 %) nebulizer solution ALPRAZolam (XANAX) 1 mg tablet Take 1 mg by mouth every 8 hours as needed. 08/22/2021 atorvastatin (LIPITOR) 40 mg tablet Take 40 mg by mouth at bedtime daily. 08/21/2021 azithromycin (ZITHROMAX) 250 mg tablet 08/22/2021 clindamycin (CLEOCIN) 300 mg capsule Past Week fluconazole (DIFLUCAN) 200 mg tablet TAKE 1 TABLET BY MOUTH 3 TIMES WEEKLY Past Week furosemide (LASIX) 20 mg tablet Take 20 mg by mouth daily. 08/22/2021 INCRUSE ELLIPTA 62.5 mcg/actuation inhalation disk INHALE 1 PUFF BY MOUTH DA ERICA 08/22/2021 montelukast (SINGULAIR) 10 mg tablet Take 10 mg by mouth daily. 08/22/2021 nicotine (NICODERM CQ STEP 2) 14 mg/day patch Past Week predniSONE (DELTASONE) 20 mg tablet Take 40 mg by mouth daily. 08/22/2021 propranoloL (INDERAL) 20 mg tablet Take 20 mg by mouth three times daily. 08/21/2021 Allergies Allergen Reactions Iodine HIVES Chantix [Varenicline] AGITATION Social History: Social History Tobacco Use Smoking status: Current Every Day Smoker Packs/day: 0.50 Types: Cigarettes Smokeless tobacco: Never Used Substance Use Topics Alcohol use: Yes Alcohol/week: 5.0 standard drinks Types: 2 Shots of liquor, 3 Cans of beer per week No family history on file. Review of Systems Positive for increased work of breathing Previous Anesthetic/Sedation History: N/A-procedure done with local anesthetic Physical Exam: Vital Signs: Last Filed In 24 Hours Vital Signs: 24 Hour Range BP: 155/97 (08/22 1032) Temp: 36.5 C (97.7 F) (12/06 1032) Pulse: 117 (08/22 1032) SpO2: 89 % (08/22 1032) Height: 157.5 cm (62") (08/22 1032) BP: (155)/(97) Temp: [36.5 C (97.7 F)] Pulse: [117] SpO2: [89 %] General appearance: alert Neurologic: Grossly normal Lungs: nonlabored Heart: regular rate and rhythm Anesthesia Classification: ASA III (A patient with a severe systemic disease th at limits activity, but is not incapacitating) Sedation/Medication Plan: Fentanyl Medications for Reversal: Narcan Discussion/Reviews: Physician has discussed risks and alternatives of this type of sedation and above planned procedures with patient NPO Status: N/A Local anesthetic Lab/Radiology/Other Diagnostic Tests: Labs: Pertinent labs reviewed Tati Llamas APRN-POLICE STENOGRAPHER Pager [phone] OGRAPHY AND PRINTS CURATOR documented in this encounter Procedure Notes * Chava Preciado MD - 08/22/2021 3:29 PM PHOTOGRAPHY AND PRINTS CURATOR Immediate Post Procedure Note Date: 08/22/2021 Attending Physician: Dr. Ordoñez Performing Provider: Chava Preciado MD Consent: Consent obtained from patient. Time out performed: Consent obtained, correct patient verified, correct procedur e verified, correct site verified, patient marked as necessary. Pre/Post Procedure Diagnosis: Right pleural effusion Indications: Above Procedure(s): US guided thoracentesis Findings: Successful right sided thoracentesis. Kenny colored clear fluid retur alicia. Estimated Blood Loss: None/Negligible Specimen(s) Removed/Disposition: None Complications: None Patient Tolerated Procedure: Well Post-Procedure Condition: stable Chava Preciado MD Pager [phone] OGRAPHY AND PRINTS CURATOR documented in this encounter Miscellaneous Notes * Patient Instructions - Leola Frederick RN - 08/22/2021 4:55 PM PHOTOGRAPHY AND PRINTS CURATOR Images from the original note were not included. INTERVENTIONAL RADIOLOGY DISCHARGE INSTRUCTIONS THORACENTESIS A thoracentesis is a procedure to remove excess fluid from the space between the chest wall and the lining of the outside of the lungs. A buildup of too much fluid in this space is called a pleural effusion. This procedure may be done t o help with shortness of breath or pain associated with this fluid buildup. Yo ur doctor may order lab tests on the fluid removed if medically indicated. Thi s procedure may also be referred to as a chest tap, pleural tap or pleural fluid aspiration. A thoracentesis is usually done using ultrasoun d guidance. It is uncommon but possible for the lung to collapse during or aft er this procedure. A post-procedure chest x-ray is necessary to confirm that t his has not happened. POST-PROCEDURE ACTIVITY: A responsible adult must drive you home. If you received sedation, you shou ld not drive or operate heavy machinery or do anything that requires concentrati on for at least 24 hours after the procedure. It is recommended that a responsible adult be with you until morning. Avoid strenuous activity and do not lift more than 10 lbs. for one week after the procedure. POST-PROCEDURE SITE CARE: Keep the bandage dry. You may remove it after 24 hours. You may shower in 24 hours, after the bandage is removed. Do not submerge the site underwater for 1 week (no swimming/hot tub, etc.) Be sure your hands are clean when touching near the site. Do not use ointments, creams or powders on the puncture site. DIET/MEDICATIONS: You may resume your previous diet after the radiologist has determined that y ou do not have a pneumothorax (collapsed lung) and you are ready to be discharge d. If you received sedation or narcotic pain medications, avoid any foods or mark erages containing alcohol for at least 24 hours after the procedure. Please see the Medication Reconciliation sheet for instructions regarding res uming you home medications. WHEN TO CALL THE DOCTOR: Call 911 if you develop severe shortness of breath or chest pain. This may indicate a collapsed lung has occurred. Otherwise, call the numbers below if you have the following: Bright red blood has soaked the bandage over your puncture site. You have signs of infection: ? Chills, fever greater than 101?F ? Redness, swelling or warmth at the puncture site ? Pus draining from the puncture site. For any of the above symptoms or for problems or concerns related to the procedu re, call for Sunday-Sunday 7-5. After-hours and weekends, ple ase call [phone] and ask for the Interventional Study Manager on-ariella l. OGRAPHY AND PRINTS CURATOR documented in this encounter Plan of Treatment Date/Time Name Type Priority Associated Diag noses 08/22/2021 3:30 PM PHOTOGRAPHY AND PRINTS CURATOR CYTOLOGY SPECIMEN LABEL Pathology Routine Primar y adenocarcinoma of right lung (HCC) Order Schedule Name Type Priority Associated Diag noses ONE TIME for 1 Occurrences starting 02/2021 until 08/22/2021 CYTOLOGY SPECIMEN LABEL Pathology Routine Primar y adenocarcinoma of right lung (HCC) documented as of this encounter Procedures Comments Procedure Name Priority Date/Time Associated Diag nosis CHEST IMMEDIATE POST BELKIS 08/22/2021 PROCEDURE INSP/EXP 4:13 PM PHOTOGRAPHY AND PRINTS CURATOR IR THORACENTESIS STAT 08/22/2021 Primary adeno carcinoma of THERAPEUTIC 3:15 PM PHOTOGRAPHY AND PRINTS CURATOR right lung (HCC) documented in this encounter Results * CHEST IMMEDIATE POST PROCEDURE INSP/EXP (08/22/2021 4:13 PM PHOTOGRAPHY AND PRINTS CURATOR) Modality Anatomical Region Laterality Computed Radiography Chest Specimen Impressions [facility] RESULTS - 08/22/2021 5:42 PM PHOTOGRAPHY AND PRINTS CURATOR Slightly smaller right pleural effusion. No pneumothorax. Irregular right upper lobe opacity, likely corresponding to reported neoplasm. Finalized by Jennifer Iniguez M.D. on 08/22/2021 5:42 PM. Dictated by Jennifer Iniguez M.D. on 08/22/2021 5:38 PM. Narrative [facility] RAD RESULTS - 08/22/2021 5:42 PM PHOTOGRAPHY AND PRINTS CURATOR CHEST IMMEDIATE POST PROCEDURE INSP/EXP INDICATION: immediate [...] * IR THORACENTESIS THERAPEUTIC (08/22/2021 3:15 PM PHOTOGRAPHY AND PRINTS CURATOR) Modality Anatomical Region Laterality Ultrasound Specimen Impressions [facility] RESULTS - 08/22/2021 4:17 PM PHOTOGRAPHY AND PRINTS CURATOR Successful ultrasound guided right sided thoracentesis with [...] [facility] RESULTS - 08/22/2021 4:17 PM PHOTOGRAPHY AND PRINTS CURATOR Ultrasound-guided Right therapeutic Thoracentesis CLINICAL INDICATION: Right pleural effusion PAYMENT COLLECTOR: Chava Preciado M.D. and Claus Ordoñez M.D. [...] therapeutic Thoracentesis CLINICAL INDICATION: Right pleural effusion PAYMENT COLLECTOR: Chava Preciado M.D. and Claus Ordoñez M.D. [...] thoracentesis with removal of 1650 mL fluid. IClaus M.D, the attending radiologist, was present for [...] Code P huma Number [facility] RESULTS documented in this encounter Visit Diagnoses Diagnosis Primary adenocarcinoma of right lung (H CC) documented in this encounter Administered Medications Action Date Dose Rate Site Medication Order MAR Action 08/22/2021 3:22 PM PHOTOGRAPHY AND PRINTS CURATOR 25 mcg fentaNYL citrate PF (SUBLIMAZE) Given injection 25 mcg 25 mcg, Intravenous, SEE ADMIN INSTRUCTIONS, Starting on Sun08/22/21 a t 1444, Until Sun08/22/21 at 1922, May repeat dose x1 if pain remains >6/10 during procedure. Please separate doses by at least 5 minutes. 08/22/2021 3:26 PM PHOTOGRAPHY AND PRINTS CURATOR 25 mcg fentaNYL citrate PF (SUBLIMAZE) Given injection INTRA-PROCEDURE MED, Starting on Sun08/22/21 at 1524, Until Sun08/22/21 at 1526 08/22/2021 4:07 PM PHOTOGRAPHY AND PRINTS CURATOR 5 mg metoprolol (LOPRESSOR) injection 5 mg Given 5 mg, Intravenous, ONCE, 1 dose, On Sun08/22/21 at 1645, Hold for heart rate < 60 bpm PROTECT FROM LIGHT documented in this encounter Discontinued Medications Start Date End Date Medication Sig Discontinue Reason 08/08/2021 08/22/2021 clonazePAM (KLONOPIN) 1 Take 1 mg by Removed from mg tablet mouth three CAMPAIGN ANALYST Med List times daily. 08/08/2021 08/22/2021 HYDROcodone/acetaminophen TAKE 1 Removed from (NORCO) 5/325 mg tablet TABLET BY CAMPAIGN ANALYST Med List MOUTH FOUR TIMES DAILY NEEDED 05/07/2018 08/22/2021 zolpidem (AMBIEN) 10 mg Take 10 mg Removed from tablet by mouth CAMPAIGN ANALYST Med List daily as needed. documented as of this encounter Active and Recently Administered Medications Times are shown in PHOTOGRAPHY AND PRINTS CURATOR. 08/21/2021 08/22/2021 Medication Order 08/20/2021 1522 (Given - Provider: Ofelia Tabares RN ) fentaNYL citrate PF (SUBLIMAZE) injection 25 mcg 25 mcg, Intravenous, SEE ADMIN INSTRUCTIONS, Starting on Sun08/22/21 a t 1444, Until Sun08/22/21 at 1922, May repeat dose x1 if pain remains >6/10 during procedure. Please separate doses by at least 5 minutes. 1607 (Given - Provider: Leola barton, RN) metoprolol (LOPRESSOR) injection 5 mg (COMPLETED) 5 mg, Intravenous, ONCE, 1 dose, On Sun08/22/21 at 1645, Hold for heart rate < 60 bpm PROTECT FROM LIGHT 08/21/2021 08/22/2021 Medication Order 08/20/2021 1526 (Given - Provider: Ofelia Tabares RN ) fentaNYL citrate PF (SUBLIMAZE) injection (COMPLETED) INTRA-PROCEDURE MED, Starting on Sun08/22/21 at 1524, Until Sun08/22/21 at 1526 documented in this encounter Orders First Ordered Date Lab Orders Without Results Count Last Ordere d Date CYTOLOGY FLUIDS 1 08/22/2021 documented in this encounter Additional Health Concerns Noted Time Assessment 08/22/2021 2:15 PM PHOTOGRAPHY AND PRINTS CURATOR A fall risk assessment has been complet ed for the patient documented as of this encounter Care Teams Start Date End Date Laryngologist Relationship Specialty 08/15/21 Raúl Ross DO PCP - General [address] [address] documented as of this encounter
--- OUTSIDE RECORDS SUMMARY | 2021-08-23 09:42 | XMS REPORT | Encounter Summary ---
Author Author [facility] Organization [facility] Address Unknown Phone Unavailable Care Team Providers Care Tie Worker Name Role Phone PCP Unavailable Encounter Details Care Team Description Date Type Department 08/07/2021 Hospital Imaging: [facility] [address] [place] [address] Social History Date Tobacco Use Types Packs/Day Years Used Never Assessed Sex Assigned at Date Recorded Not on file documented as of this encounter Medications at Time of Discharge Start Date End Date Medication Sig Dispensed Refills 07/29/2021 albuterol 0.083% 0 (PROVENTIL) 2.5 mg /3 mL (0.083 %) nebulizer solution 06/06/2018 ALPRAZolam (XANAX) 1 mg Take 1 mg by 0 tablet mouth every 8 hours as needed. 08/04/2021 atorvastatin (LIPITOR) 40 Take 40 mg by 0 mg tablet mouth at bedtime daily. 07/11/2021 clindamycin (CLEOCIN) 300 0 mg capsule 08/05/2021 fluconazole (DIFLUCAN) TAKE 1 TABLET 0 200 mg tablet BY MOUTH 3 TIMES WEEKLY 08/05/2021 INCRUSE ELLIPTA 62.5 INHALE 1 PUFF 0 mcg/actuation inhalation BY MOUTH disk DAILY 08/01/2021 montelukast (SINGULAIR) Take 10 mg by 0 10 mg tablet mouth daily. 07/30/2021 nicotine (NICODERM CQ 0 STEP 2) 14 mg/day patch 07/19/2021 propranoloL (INDERAL) 20 Take 20 mg by 0 mg tablet mouth three times daily. 05/07/2018 08/22/2021 zolpidem (AMBIEN) 10 mg Take 10 mg by 0 tablet mouth daily as needed. documented as of this encounter Discharge Disposition Code Departure Means Destination Disposition Home Home or Self Care documented in this encounter Plan of Treatment Not on filedocumented as of this encounter Procedures Comments Procedure Name Priority Date/Time Associated Diag nosis GENERAL RAD CHEST Routine 08/07/2021 EXTERNAL IMAGING 12:00 AM TRAFFIC MANAGER documented in this encounter Results * GENERAL RAD CHEST EXTERNAL IMAGING (08/07/2021 12:00 AM TRAFFIC MANAGER) Modality Anatomical Region Laterality Computed Radiography Specimen Narrative Scheduling, Silent - 08/17/2021 9:05 AM TRAFFIC MANAGER This order has been auto finalized and does not contain a result. documented in this encounter Visit Diagnoses Not on filedocumented in this encounter
--- OUTSIDE RECORDS SUMMARY | 2021-08-23 09:42 | XMS REPORT | Encounter Summary ---
Author Author [facility] Organization [facility] Address Unknown Phone Unavailable Care Team Providers Care Pre School Teacher Name Role Phone Raúl Ross DO PCP Encounter Details Care Team Description Date Type Department 08/22/2021 Travel Social History Date Tobacco Use Types Packs/Day Years Used Current Every Day Smoker Cigarettes 0.5 Smokeless Tobacco: Never Used Comments Alcohol Use Standard Drinks/Week Yes 5 (1 standard drink = 0.6 o z pure alcohol) Sex Assigned at Date Recorded Not on file Date Recorded COVID-19 Exposure Response 08/22/2021 10:05 AM BLACK POWDER GLAZING OPERATOR In the last month, have you been [...] impairment: No documented as of this encounter Plan of Treatment Not on filedocumented as of this encounter Visit Diagnoses Not on filedocumented in this encounter Additional Health Concerns Noted Time Assessment 08/22/2021 2:15 PM BLACK POWDER GLAZING OPERATOR A fall risk assessment has been complet ed for the patient documented as of this encounter Care Teams Start Date End Date Pre School Teacher Relationship Specialty 08/15/21 Raúl Ross DO PCP - [address] [address] documented as of this encounter
--- OUTSIDE RECORDS SUMMARY | 2021-08-23 09:42 | XMS REPORT | Encounter Summary ---
Author Author [facility] Organization [facility] Address Unknown Phone Unavailable Care Team Providers Care Delivery Driver Name Role Phone Raúl Ross DO PCP Reason for Visit * Reason Comments Cancer Encounter Details Care Team Description Date Type Department Manisha Duckworth 08/22/2021 Clinical Oncology: [facility] [address] [place] [address] Social History Date Tobacco Use Types Packs/Day Years Used Current Every Day Smoker Cigarettes 0.5 Smokeless Tobacco: Never Used Comments Alcohol Use Standard Drinks/Week Yes 5 (1 standard drink = 0.6 o z pure alcohol) Sex Assigned at Date Recorded Not on file Date Recorded COVID-19 Exposure Response 08/22/2021 10:05 AM CLEANING AND WASHING EQUIPMENT OPERATOR In the last month, have you [...] Concerns Noted Time Assessment 08/22/2021 2:15 PM CLEANING AND WASHING EQUIPMENT OPERATOR A fall risk assessment has been complet ed for the patient documented as of this encounter Care Teams Start Date End Date Delivery Driver Relationship Specialty 08/15/21 Raúl Ross DO PCP - [address] [address] documented as of this encounter
--- OUTSIDE RECORDS SUMMARY | 2021-08-23 09:42 | XMS REPORT | Encounter Summary ---
Author Author [facility] Organization [facility] Address Unknown Phone Unavailable Care Team Providers Care Blunger Machine Operator Name Role Phone Raúl Ross DO PCP Encounter Details Care Team Description Date Type Department Joleen Barfield 08/15/2021 Documentation Oncology: [facility] [address] [place] [address] Social History Date Tobacco Use Types Packs/Day Years Used Never Assessed Sex Assigned at Date Recorded Not on file documented as of this encounter Plan of Treatment Not on filedocumented as of this encounter Visit Diagnoses Not on filedocumented in this encounter Care Teams Start Date End Date Blunger Machine Operator Relationship Specialty 08/15/21 Raúl Ross DO PCP - [address] [address] documented as of this encounter
--- OUTSIDE RECORDS SUMMARY | 2021-08-23 09:42 | XMS REPORT | Encounter Summary ---
Author Author [facility] Organization [facility] Address Unknown Phone Unavailable Care Team Providers Care Tub Puller Name Role Phone Raúl Ross DO PCP Reason for Referral * Radiology Services (Routine) - Authorized Diagnoses / Procedures Referred By Contact [facility] Primary adenocarcinoma of right lung (HCC) Procedures CT NECK WO CONTRAST Rolando Torres MD [address] [place] [address] [address] [place] [address] [place] [phone] Radiology Referral ID Status Reason Start Date Expiration Visits Vi sits Date Requested Authorized [id number] Authorized 08/22/2021 08/22/2022 1 1 HEDEMA THERAPIST * Radiology Services (Routine) - New Request Diagnoses / Procedures Referred By Contact [facility] Diagn[facility] Primary adenocarcinoma of right lung (HCC) Procedures CT ABD/PELV WO CONTRAST Rolando Torres MD [address] [place] [address] Radiology Referral ID Status Reason Start Date Expiration Visits Vi sits Date Requested Authorized [id number] New Request 08/22/2021 08/22/2022 1 1 HEDEMA THERAPIST * Test (Routine) - New Request Diagnoses / Procedures Referred By Contact [facility] Diagn[facility] Primary adenocarcinoma of right lung (HCC) Procedures PDL1 IHC Rolando Torres MD [address] [place] [address] [facility] [address] [facility] [address], [address] [place] [address] Lab Referral ID Status Reason Start Date Expiration Visits Vi sits Date Requested Authorized [id number] New Request 08/22/2021 08/22/2022 1 1 HEDEMA THERAPIST * Radiology Services (Urgent) - Authorized Diagnoses / Procedures Referred By Contact [facility] Special[facility] Diagnoses Primary adenocarcinoma of right lung (HCC) Procedures IR THORACENTESIS THERAPEUTIC Rolando Torres MD [address] [place] [address] [facility] [address] [facility] [address], [address] [place] [address] Radiology Referral ID Status Reason Start Date Expiration Visits Vi sits Date Requested Authorized [id number] Authorized 08/22/2021 08/22/2022 1 1 HEDEMA THERAPIST Reason for Visit * Reason Comments New Patient * Consult, Test & Treat (Routine) - Pending Review Diagnoses / Procedures Referred By Contact Referred To [facility] ct Specialty Self, Referral Referral ID Status Reason Start Date Expiration Visits Vi sits Date Requested Authorized [id number] Pending 08/15/2021 08/15/2022 1 1 Review Encounter Details Care Team Description Date Type Department Rolando Torres MD [address] [place] [address] Primary adenocarcinoma of right lung (HC C) (Primary Dx); Adenocarcinoma of right lung (HCC) 08/22/2021 Office Visit Oncology: [facility] [address] [place] [address] Social History Date Tobacco Use Types Packs/Day Years Used Current Every Day Smoker Cigarettes 0.5 Smokeless Tobacco: Never Used Tobacco Cessation: Ready to Quit: No Comments Alcohol Use Standard Drinks/Week Yes 5 (1 standard drink = 0.6 o z pure alcohol) Sex Assigned at Date Recorded Not on file Date Recorded COVID-19 Exposure Response 08/22/2021 10:05 AM LYMPHEDEMA THERAPIST In the last month, have you been in contact with No / Unsure someone who was confirmed or suspected to have Coronavirus / COVID-19? documented as of this encounter Last Filed Vital Signs Reading Time Taken Comments Vital Sign 155/97 08/22/2021 10:32 AM LYMPHEDEMA THERAPIST Blood Pressure 117 08/22/2021 10:32 AM LYMPHEDEMA THERAPIST Pulse 36.5 C (97.7 F) 08/22/2021 10:32 AM LYMPHEDEMA THERAPIST Temperature - - Respiratory Rate 89% 08/22/2021 10:32 AM LYMPHEDEMA THERAPIST Oxygen Saturation - - Inhaled Oxygen Concentration 52.5 kg (115 lb 12.8 oz) 08/22/2021 10:32 AM LYMPHEDEMA THERAPIST Weight 157.5 cm (5' 2") 08/22/2021 10:32 AM LYMPHEDEMA THERAPIST Height 21.18 08/22/2021 10:32 AM LYMPHEDEMA THERAPIST Body Mass Index documented in this encounter [...] impairment: No documented as of this encounter Ordered Prescriptions Start Date End Date Prescription Sig Dispensed Refills 08/22/2021 oxyCODONE (ROXICODONE) 5 Take one 100 tablet 0 mg tablet tablet by mouth every 6 hours as needed for Pain documented in this encounter Progress Notes * Myesha Donaldson MA - 08/22/2021 10:36 AM LYMPHEDEMA THERAPIST Fell off the bed 3x HEDEMA THERAPIST documented in this encounter Plan of Treatment Order Schedule Name Type Priority Associated Diag noses Expected: 08/23/2021, Expires: 2 PDL1 IHC Pathology Routine Primary adenoca rcinoma of right lung (HCC) Expected: 08/29/2021 (Approximate), Expi res: 08/22/2022 CT ABD/PELV WO CONTRAST Imaging Routine Primar y adenocarcinoma of right lung (HCC) Expected: 08/23/2021 (Approximate), Expi res: 08/22/2022 CT NECK WO CONTRAST Imaging Routine Primary ad enocarcinoma of right lung (HCC) documented as of this encounter Results * IR THORACENTESIS THERAPEUTIC (08/22/2021 3:15 PM LYMPHEDEMA THERAPIST) Modality Anatomical Region Laterality Ultrasound Specimen Impressions [facility] RESULTS - 08/22/2021 4:17 PM LYMPHEDEMA THERAPIST Successful ultrasound guided right sided thoracentesis with [...] [facility] RESULTS - 08/22/2021 4:17 PM LYMPHEDEMA THERAPIST Ultrasound-guided Right therapeutic Thoracentesis CLINICAL INDICATION: Right pleural effusion XRAY TECH: Chava Preciado M.D. and Claus Ordoñez M.D. [...] therapeutic Thoracentesis CLINICAL INDICATION: Right pleural effusion XRAY TECH: Chava Preciado M.D. and Claus Ordoñez M.D. [...] thoracentesis with removal of 1650 mL fluid. Claus Jean M.D, the attending radiologist, was present for [...] P huma Number [facility] * COMPREHENSIVE METABOLIC PANEL (08/22/2021 1:08 PM LYMPHEDEMA THERAPIST) Sodium 137 137 - 147 MMOL/L [facility] [...] Non >60 >60 mL/min [facility] Comment: [place] Citizen The eGFR is not validated f or use in drug dosing adjustments. Continue to use estimated creatinine clearance per dosing reference text. Please contact the Clinical Pharmacist for questions. eGFR >60 >60 mL/min [facility] [place] Citizen Comment: The eGFR is not validated for use in drug dosing adjustments. Continue to use estimated creatinine clearance per dosing reference text. Please contact the Clinical Pharmacist for questions. Specimen Blood (substance) Performing Organization Address City/State/ZIP Code P huma Number [facility] [address] [place] [address] * CBC (08/22/2021 1:08 PM LYMPHEDEMA THERAPIST) White Blood 15.2 (H) 4.5 - 11.0 [...] LAB Specimen Blood (substance) Performing Organization Address City/State/ZIP Code P huma Number [facility] [address] [place] [address] documented in this encounter Visit Diagnoses Diagnosis Primary adenocarcinoma of right lung (H CC) - Primary Adenocarcinoma of right lung (HCC) Primary adenocarcinoma of right lung (H CC) documented in this encounter Historical Medications * This list may reflect changes made after this encounter. Start Date End Date Medication Sig Dispensed Refills 08/05/2021 INCRUSE ELLIPTA 62.5 INHALE 1 PUFF 0 mcg/actuation inhalation BY MOUTH disk DAILY 08/19/2021 predniSONE (DELTASONE) 20 Take 40 mg by 0 mg tablet mouth daily. 07/30/2021 nicotine (NICODERM CQ 0 STEP 2) 14 mg/day patch 08/01/2021 montelukast (SINGULAIR) Take 10 mg by 0 10 mg tablet mouth daily. 08/19/2021 furosemide (LASIX) 20 mg Take 20 mg by 0 tablet mouth daily. 08/05/2021 fluconazole (DIFLUCAN) TAKE 1 TABLET 0 200 mg tablet BY MOUTH 3 TIMES WEEKLY 08/19/2021 azithromycin (ZITHROMAX) 0 250 mg tablet 08/04/2021 atorvastatin (LIPITOR) 40 Take 40 mg by 0 mg tablet mouth at bedtime daily. 07/19/2021 propranoloL (INDERAL) 20 Take 20 mg by 0 mg tablet mouth three times daily. 07/11/2021 clindamycin (CLEOCIN) 300 0 mg capsule 06/06/2018 ALPRAZolam (XANAX) 1 mg Take 1 mg by 0 tablet mouth every 8 hours as needed. 07/29/2021 albuterol 0.083% 0 (PROVENTIL) 2.5 mg /3 mL (0.083 %) nebulizer solution 05/07/2018 08/22/2021 zolpidem (AMBIEN) 10 mg Take 10 mg by 0 tablet mouth daily as needed. 08/08/2021 08/22/2021 HYDROcodone/acetaminophen TAKE 1 TABLET 0 (NORCO) 5/325 mg tablet BY MOUTH FOUR TIMES DAILY NEEDED 08/08/2021 08/22/2021 clonazePAM (KLONOPIN) 1 Take 1 mg by 0 mg tablet mouth three times daily. added in this encounter Additional Health Concerns Noted Time Assessment 08/22/2021 2:15 PM LYMPHEDEMA THERAPIST A fall risk assessment has been complet ed for the patient documented as of this encounter Care Teams Start Date End Date Tub Puller Relationship Specialty 08/15/21 Raúl Ross DO PCP - General [address] [address] documented as of this encounter
--- OUTSIDE RECORDS SUMMARY | 2021-08-23 09:42 | XMS REPORT | Encounter Summary ---
Author Author [facility] Organization [facility] Address Unknown Phone Unavailable Care Team Providers Care Engineering Faculty Member Name Role Phone PCP Unavailable Encounter Details Care Team Description Date Type Department 07/27/2021 Hospital Imaging: [facility] [address], [address] [place] [address] Social History Date Tobacco Use Types Packs/Day Years Used Never Assessed Sex Assigned at Date Recorded Not on file documented as of this encounter Medications at Time of Discharge Start Date End Date Medication Sig Dispensed Refills 06/06/2018 ALPRAZolam (XANAX) 1 mg Take 1 mg by 0 tablet mouth every 8 hours as needed. 07/11/2021 clindamycin (CLEOCIN) 300 0 mg capsule 07/19/2021 propranoloL (INDERAL) 20 Take 20 mg [...] CHEST Routine 07/27/2021 EXTERNAL IMAGING 12:00 AM STREETCAR CONDUCTOR documented in this encounter Results * GENERAL RAD CHEST EXTERNAL IMAGING (07/27/2021 12:00 AM STREETCAR CONDUCTOR) Modality Anatomical Region Laterality Computed Radiography Specimen Narrative Scheduling, Silent - 08/17/2021 9:04 AM STREETCAR CONDUCTOR This order has been auto finalized and does not contain a result. documented in this encounter Visit Diagnoses Not on filedocumented in this encounter
--- OUTSIDE RECORDS SUMMARY | 2021-08-23 09:42 | XMS REPORT | Encounter Summary ---
Author Author [facility] Organization [facility] Address Unknown Phone Unavailable Care Team Providers Care Development Mgr Name Role Phone Raúl Ross DO PCP Encounter Details Care Team Description Date Type Department Rolando Torres MD [address] [place] [address] Yoly Peetrs Arrived 08/22/2021 Clinical Oncology: [address] [place] [address] Social History Date Tobacco Use Types Packs/Day Years Used Current Every Day Smoker Cigarettes 0.5 Smokeless Tobacco: Never Used Comments Alcohol Use Standard Drinks/Week Yes 5 (1 standard drink = 0.6 o z pure alcohol) Sex Assigned at Date Recorded Not on file Date Recorded COVID-19 Exposure Response 08/22/2021 10:05 AM BASKET WEAVER In the last month, have you been [...] impairment: No documented as of this encounter Progress Notes * Yoly Peters - 08/22/2021 12:30 PM BASKET WEAVER Plan: Support. Interaction: SERGEI met with pt and her dgt Luli. Pt lives in [place], [place] with her mother. Pt has three children: two sons and her dgt Luli. Pt has 4 grand children. Pt stated her children/grandchildren all live in [place]. She has g reat family support. Pt has [facility] Medicaid. SW went over Medicaid mileage reimbursement. Pts dgt Mendoza carrion will provide transportation to all medical apts. Pt has had home 02 thorugh [employer] out of [place]. Pt stated she has a h ome concentrator and small e-tanks. Pt stated she has had the home 02 for 2 brayden hs but is needing a little more education on how to use the DME. Luli stated she will call [employer] to ask them to come back out to the home for further education. Luli purchased a 02 finger monitor to keep an eye on pts 02 satura tion. Pt is interested in completing a Medical DPOA and would like to have an outside DNR. SERGEI assisted with completed MDPOA: pt is A & O x4. Pt selected her dgt Luli Su [phone] as her medical decision maker. SERGEI notarized form. SERGEI provided pt with the original document and three copies. SERGEI scanned a copy to [facility] document management to add to pts EMR, with pts permission. SERGEI provided pt/dgt with primary SW, Vicky Beverly, business card. SERGEI added Ching vitale on pts schedule on 09/07 for follow up and continued support. Yoly Peters LMSW ET WEAVER documented in this encounter Plan of Treatment Not on filedocumented as of this encounter Visit Diagnoses Not on filedocumented in this encounter Additional Health Concerns Noted Time Assessment 08/22/2021 2:15 PM BASKET WEAVER A fall risk assessment has been complet ed for the patient documented as of this encounter Care Teams Start Date End Date Development Mgr Relationship Specialty 08/15/21 Raúl Ross DO PCP - [place] [address] [place] [address] documented as of this encounter
--- OUTSIDE RECORDS SUMMARY | 2021-08-23 09:42 | XMS REPORT | Encounter Summary ---
Author Author [facility] Organization [facility] Address Unknown Phone Unavailable Care Team Providers Care Hadoop Java Developer Name Role Phone Yann Rossjhon ARSHAD PCP Reason for Visit * Reason Onset Date Comments Navigation Assessment 08/18/2021 Encounter Details Care Team Description Date Type Department Rolando Torres MD [address] [place] [address] Navigation Assessment 08/18/2021 Telephone Oncology: [address] [place] [address] Social History Date Tobacco Use Types Packs/Day Years Used Never Assessed Sex Assigned at Date Recorded Not on file documented as of this encounter Miscellaneous Notes * Telephone Encounter - Jaqueline Tyler RN - 08/18/2021 2:42 PM DIAL LATHE OPERATOR Navigation Intake Assessment Document Patient Name: Trixie Zapata : 1970 Insurance: Medicaid [place] Appointment Info: to see Dr Kaia Torres on 08/22/21 Diagnosis & Reason for Visit: Lung cancer Physician Info: Referring Physician: Dr Burak Ross, PCP Contact Name & Number: Family Practice in [place], [place] Surgeon: Medical Oncologist: Radiation Oncologist: PCP: Dr Burak Ross Other: Location of Films: PACS Location of Pathology: [facility] in [place], [place] History of Present Illness: Pt had workup at [facility] in [place], [place]. Outside records scanned in O2. Pt evaluated in ED for dyspnea 07/25/21 - CXR, CT chest, R pleural effusion 07/26/21 - Thoracentesis, fluid positive for mets [place] CA, c/w pulmonary primary Referred to [facility] Prior Treatment (XRT, Surgery, Chemotherapy): None Allergies reviewed and verified with the patient, and documented in Epic: Yes Comments: Spoke to patient's daughterLuli, about appt. Informed of one vis itor restriction due to Covid. Appt guide sent. NEEDS Assessment: Genetic Counseling: Genetic Assessment: No identified risk factors Nutrition: Additional Nutrition Assessment: No concerns identified Social & Financial: Social and Financial Assessment: Reports adequate support system;No needs identi fied (Spoke with pt's daughterLuli) Tobacco assessment last 30 days: Not assessed at this time Spiritual & Emotional: Spiritual and Emotional Assessment: Reports feeling and/or sounds anxious, worri ed or irritable Spiritual and Emotional Intervention: Provided information about available servi su;Emotional Support provided Physical: Fall Risk: None identified Communication: Communication Barrier: No Onc Fertility: Onc Fertility Assessment: Unable to assess at this time LATHE OPERATOR documented in this encounter Plan of Treatment Not on filedocumented as of this encounter Visit Diagnoses Not on filedocumented in this encounter Additional Health Concerns Noted Time Assessment 08/19/2021 10:00 AM DIAL LATHE OPERATOR A fall risk assessment has been complet ed for the patient documented as of this encounter Care Teams Start Date End Date Hadoop Java Developer Relationship Specialty 08/15/21 Raúl Ross DO PCP - General [address] [address] documented as of this encounter
--- OUTSIDE RECORDS SUMMARY | 2021-08-23 09:43 | XMS REPORT | Encounter Summary ---
Author Author [facility] Organization [facility] Address Unknown Phone Unavailable Care Team Providers Care Clinical Consultant Name Role Phone PCP Unavailable Encounter Details Care Team Description Date Type Department 07/26/2021 Hospital Imaging: [facility], Encounter [facility] [address], [address] [place] [address] Social History Date Tobacco [...] CHEST Routine 07/26/2021 EXTERNAL IMAGING 12:00 AM HOB MILL OPERATOR documented in this encounter Results * GENERAL RAD CHEST EXTERNAL IMAGING (07/26/2021 12:00 AM HOB MILL OPERATOR) Modality Anatomical Region Laterality Computed Radiography Specimen Narrative Scheduling, Silent - 08/17/2021 9:03 AM HOB MILL OPERATOR This order has been auto finalized and does not contain a result. documented in this encounter Visit Diagnoses Not on filedocumented in this encounter
--- OUTSIDE RECORDS SUMMARY | 2021-08-23 09:43 | XMS REPORT | Encounter Summary ---
Author Author [facility] Organization [facility] Address Unknown Phone Unavailable Care Team Providers Care Occupational Therapist Assistants Name Role Phone PCP Unavailable Encounter Details Care Team Description Date Type Department 07/25/2021 Hospital Imaging: [facility], Encounter [facility] [address], [address] [place] [address] Social History Date Tobacco Use [...] CHEST EXTERNAL IMAGING Routine 07/25/2021 12:05 AM PATIENT CASE COORDINATOR documented in this encounter Results * CT CHEST EXTERNAL IMAGING (07/25/2021 12:05 AM PATIENT CASE COORDINATOR) Modality Anatomical Region Laterality Computed Radiography Specimen Narrative Scheduling, Silent - 08/17/2021 9:06 AM PATIENT CASE COORDINATOR This order has been auto finalized and does not contain a result. documented in this encounter Visit Diagnoses Not on filedocumented in this encounter
--- OUTSIDE RECORDS SUMMARY | 2021-08-23 09:43 | XMS REPORT | Encounter Summary ---
Author Author [facility] Organization [facility] Address Unknown Phone Unavailable Care Team Providers Care Chief Medical Officer Name Role Phone PCP Unavailable Encounter Details Care Team Description Date Type Department 07/25/2021 Hospital Imaging: [facility], Encounter [facility] [address], [address] [place] [address] Social History Date Tobacco Use [...] CHEST Routine 07/25/2021 EXTERNAL IMAGING 12:00 AM SAFETY PHYSICIAN documented in this encounter Results * GENERAL RAD CHEST EXTERNAL IMAGING (07/25/2021 12:00 AM SAFETY PHYSICIAN) Modality Anatomical Region Laterality Computed Radiography Specimen Narrative Scheduling, Silent - 08/17/2021 9:05 AM SAFETY PHYSICIAN This order has been auto finalized and does not contain a result. documented in this encounter Visit Diagnoses Not on filedocumented in this encounter
--- OUTSIDE RECORDS SUMMARY | 2021-08-23 09:43 | XMS REPORT | Encounter Summary ---
Author Author [facility] Organization [facility] Address Unknown Phone Unavailable Care Team Providers Care Commercial Diver Name Role Phone PCP Unavailable Encounter Details Care Team Description Date Type Department 07/26/2021 Hospital Imaging: Main [facility], Encounter [facility] [address], [address] [place] [address] Social History Date Tobacco Use [...] CHEST Routine 07/26/2021 EXTERNAL IMAGING 12:05 AM BLEACHING SUPERVISOR documented in this encounter Results * GENERAL RAD CHEST EXTERNAL IMAGING (07/26/2021 12:05 AM BLEACHING SUPERVISOR) Modality Anatomical Region Laterality Computed Radiography Specimen Narrative Scheduling, Silent - 08/17/2021 9:03 AM BLEACHING SUPERVISOR This order has been auto finalized and does not contain a result. documented in this encounter Visit Diagnoses Not on filedocumented in this encounter
[2021-08-23 10:16] LABS: BASOPHILS # (AUTO) 0.1 10^3/uL (0.0-0.1); BASOPHILS % (AUTO) 0 % (0-10); EOSINOPHILS # (AUTO) 0.1 10^3/uL (0.0-0.3); EOSINOPHILS % (AUTO) 1 % (0-10); HEMATOCRIT 55 % (35-52); HEMOGLOBIN 17.9 g/dL (11.5-16.0); LYMPHOCYTES # (AUTO) 1.9 10^3/uL (1.0-4.0); LYMPHOCYTES % (AUTO) 13 % (12-44); MEAN CORPUSCULAR HEMOGLOBIN 28 pg (25-34); MEAN CORPUSCULAR HGB CONC 33 g/dL (32-36); MEAN CORPUSCULAR VOLUME 86 fL (80-99); MEAN PLATELET VOLUME 11.7 fL (9.0-12.2); MONOCYTES # (AUTO) 0.7 10^3/uL (0.0-1.0); MONOCYTES % (AUTO) 5 % (0-12); NEUTROPHILS % (AUTO) 81 % (42-75); PLATELET COUNT 295 10^3/uL (130-400); WHITE BLOOD COUNT 14.9 10^3/uL (4.3-11.0)
[2021-08-23 10:26] LABS: ALBUMIN 3.3 GM/DL (3.2-4.5); INR 1.1 (0.8-1.4); PROTHROMBIN TIME PATIENT 14.8 SEC (12.2-14.7)
[2021-08-23 10:28] LABS: TOTAL PROTEIN 6.5 GM/DL (6.4-8.2)
[2021-08-23 10:30] LABS: BILIRUBIN,TOTAL 0.6 MG/DL (0.1-1.0)
[2021-08-23 10:32] LABS: CREATININE SERUM 0.63 MG/DL (0.60-1.30)
[2021-08-23 10:36] LABS: BAND NEUTROPHILS 0 %; BASOPHILS % (MANUAL) 0 %; EOSINOPHILS % (MANUAL) 1 %; LYMPHOCYTES % (MANUAL) 11 %; MONOCYTES % (MANUAL) 6 %; NEUTROPHILS % (MANUAL) 77 %; RBC MORPH NORMAL; REACTIVE LYMPHOCYTES 5 %
--- NOTE | 2021-08-23 11:08 | Diagnostic Imaging Report ---
INDICATION: Hemoptysis. FINDINGS: Two views of the chest show the heart size and vascularity to be within normal limits. There are small bilateral effusions present, slightly greater on the right than the left, but there has been marked reduction in the amount of effusion compared to the 07/25/2021 study with re-expansion of the right lung. There is now seen 2 cm abnormal density in the right upper lobe which represents bronchogenic carcinoma until proven otherwise. There is no pneumothorax. IMPRESSION: Marked improved aeration of the right lung with a decrease in the right-sided effusion. There is a right upper lung mass seen. This could be evaluated further with PET scan, if felt indicated. This could be evaluated further with CT and biopsied using CT guidance, if felt indicated. Dictated by: Dictated on workstation # [id number]
[2021-08-23] MEDS ORDERED: KCL 10 MEQ TAB (MICRO K) PO ONE (11:45)
[2021-08-23] MEDS ORDERED: LEVO750T39 PO (11:59)
[2021-08-23] MEDS ORDERED: POTA10CA43 PO (11:59)
--- NOTE | 2021-08-23 12:01 | ED General ---
General Chief Complaint: Oral/Throat Problems Stated Complaint: COUGHING UP BLOOD, FLUID DRAINED OFF LUNGS 08/22 Nursing Triage Note: STITTING UP BLOOD THIS AM , PATIETN DAUGHTER SHOWS THIS RN A TISSUE WITH A PEA SIZED AMOUNT OF BRIGHT RED BLOOD ON IT. PATIENT REPORTED THIS FINDING TO [facility], WHERE SHE WAS TREATED YESTERDAY FOR "REMOVAL OF FLUID ON THE LUNGS", AND THEY TOLD HER TO COME TOT EMERGENCY ROOM TO BE EVALUATED. Source of Information: Patient, Family, Old Records Exam Limitations: No Limitations History of Present Illness Date Seen by Provider: Aug 23, 2021 Time Seen by Provider: 09:38 Initial Comments This 51-year-old woman with metastatic adenocarcinoma presents to the emergency room with concerns about coughing up blood multiple times over the past 24 hours. She had a thoracentesis performed at [facility] yesterday for drainage of pleural effusion. She had adenocarcinoma diagnosed by body fluid pathology on a prior thoracentesis. She is scheduled to have chemotherapy started on August 31. She has a PET scan pending on the . Patient denies any increase in pain, cough, or fever. The first episode of hemoptysis was noted at 0130. She takes aspirin 81 mg but otherwise takes no blood thinning medications. Denies fever. Her primary care provider is Dr. MUNOZ. Her oncologist is Dr. Torres at [facility]. Allergies and Home Medications Allergies Coded Allergies: iodine (Verified Allergy, Unknown, 02/12/19) clindamycin (Verified Adverse Reaction, Mild, Vomiting; Dizziness, 07/26/21) diphenhydramine (Verified Adverse Reaction, Unknown, eyes water, 02/12/19) Patient Home Medication List Home Medication List Reviewed: Yes Albuterol Sulfate (Proair Hfa) 1 Puff Puff, 2 PUFF IH Q4H PRN for SHORTNESS OF BREATH, (Reported) Entered as Reported by: MATT BUSH on 07/26/21 1044 Alprazolam (Alprazolam) 1 Mg Tablet, 1 MG PO TID, (Reported) Entered as Reported by: MARILEE KHANNA on 07/26/21 0743 Amitriptyline HCl (Amitriptyline HCl) 50 Mg Tablet, 50-100 MG PO HS, (Reported) Entered as Reported by: MATT BUSH on 07/26/21 1044 Amoxicillin/Potassium Clav (Augmentin 875-125 Tablet) 1 Each Tablet, 1 EACH PO BID Prescribed by: MAGGIE SANCHEZ on 07/27/21 1031 Aspirin (Aspirin EC) 81 Mg Tablet.dr, 81 MG PO DAILY, (Reported) Entered as Reported by: MATT BUSH on 07/26/21 1044 Azithromycin (Zithromax) 250 Mg Tablet, 250 MG PO UD Prescribed by: ELIZABETH ROTH on 08/18/212002 Doxycycline Hyclate (Doxycycline Hyclate) 100 Mg Tablet, 100 MG PO BID Prescribed by: SEBASTIAN ELIZABETH on 08/07/21 0843 Fluticasone/Umeclidin/Vilanter (Trelegy Ellipta 200-62.5-25) 1 Each Blst.w.dev, 1 INH INH DAILY, (Reported) Entered as Reported by: MARILEE KHANNA on 07/26/21 07 Furosemide (Lasix) 20 Mg Tablet, 20 MG PO DAILY Prescribed by: ELIZABETH ROTH on 08/18/212002 Gabapentin (Gabapentin) 600 Mg Tablet, 600 MG PO TID, (Reported) Entered as Reported by: MARILEE KHANNA on 07/26/21 07 Levofloxacin (Levofloxacin) 750 Mg Tablet, 750 MG PO DAILY Prescribed by: LAZARO ALTAMIRANO on 08/23/21 115 Methocarbamol (Methocarbamol) 750 Mg Tablet, 750 MG PO BID, (Reported) Entered as Reported by: MARILEE KHANNA on 07/26/21 0743 Montelukast Sodium (Montelukast Sodium) 10 Mg Tablet, 10 MG PO DAILY, (Reported) Entered as Reported by: MATT BUSH on 07/26/21 104 Nicotine (Nicoderm Cq) 1 Each Patch.td24, 14 MG TD DAILY Prescribed by: SAVANNA SANTILLAN on 07/27/21 1358 Pantoprazole Sodium (Pantoprazole Sodium) 40 Mg Tablet.dr, 40 MG PO DAILY, (Reported) Entered as Reported by: MARILEE KHANNA on 07/26/21 07 Potassium Chloride (Potassium Chloride) 10 Meq Capsule.er, 10 MEQ PO DAILY Prescribed by: LAZARO ALTAMIRANO on 08/23/21 115 Prednisone (Prednisone) 20 Mg Tab, 40 MG PO DAILY Prescribed by: ELIZABETH ROTH on 08/18/212002 Propranolol HCl (Propranolol HCl) 20 Mg Tablet, 20 MG PO TID, (Reported) Entered as Reported by: MARILEE KHANNA on 07/26/21742 Sertraline HCl (Sertraline HCl) 50 Mg Tablet, 50 MG PO DAILY, (Reported) Entered as Reported by: MARILEE KHANNA on 07/26/21742 Review of Systems Review of Systems Constitutional: no symptoms reported EENTM: no symptoms reported Respiratory: see HPI Cardiovascular: no symptoms reported Gastrointestinal: no symptoms reported Genitourinary: no symptoms reported : No Musculoskeletal: no symptoms reported Skin: no symptoms reported Psychiatric/Neurological: No Symptoms Reported Hematologic/Lymphatic: No Symptoms Reported Immunological/Allergic: no symptoms reported Past Svyhgck-Lcpfes-Xyiuva Hx Patient Social History Tobacco Use?: Yes Tobacco type used: Cigarettes Smoking Status: Current Everyday Smoker Use of E-Cig and/or Vaping dev: No Substance use?: Yes Substance type: Marijuana Substance frequency: Once in a while (Heavy daily drinker until summer 2020) Alcohol Use?: No Pt feels they are or have been: No Immunizations Up To Date Influenza Vaccine Up-to-Date: Yes; Up-to-Date First/Initial COVID19 Vaccinat: 12/03/20 Second COVID19 Vaccination Delta: 01/15/21 COVID19 Vaccine 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 [employer] Seasonal Allergies Seasonal Allergies: Yes Past Medical History Surgery/Hospitalization HX: COPD, Pneumonia, HTN, High Cholesterol, GERD, Depression, STAGE 4 LUNG CA Surgeries: Yes Section, Gallbladder, Hysterectomy Respiratory: Yes Asthma, COPD Cardiac: Yes High Cholesterol, Hypertension Neurological: Yes Neuropathy, Stroke Genitourinary: No Gastrointestinal: No Musculoskeletal: Yes Chronic Back Pain Endocrine: No HEENT: No Cancer: No Psychosocial: Yes Anxiety, Depression Integumentary: No Blood Disorders: No Family Medical History Cancer Physical Exam Vital Signs Vital Signs - First Documented 08/23/21 10:05 Temp 36.1 Pulse 92 Resp 18 B/P (MAP) 141/117 (125) Pulse Ox 96 O2 Delivery Nasal Cannula Capillary Refill : Height, Weight, BMI Height: 5'2.00" Weight: 160lbs. oz. 72.279389zy; 21.00 BMI Method:Stated General Appearance: No Apparent Distress, WD/WN, Thin HEENT: PERRL/EOMI, TMs Normal, Normal ENT Inspection, Pharynx Normal Neck: Normal Inspection Respiratory: Lungs Clear, Normal Breath Sounds, No Accessory Muscle Use, No Respiratory Distress Cardiovascular: Regular Rate, Rhythm, No Edema, No Murmur Gastrointestinal: Non Tender, Soft; No Distended Extremity: Normal Inspection, No Pedal Edema Neurologic/Psychiatric: Alert, Oriented x3, No Motor/Sensory Deficits, Normal Mood/Affect, patient manager II-XII Norm as Tested Skin: Normal Color, Warm/Dry, Other (OpSite dressing over the puncture site of thoracentesis. Small amount of blood on the dressing. No localized inflammatory changes.) Progress/Results/Core Measures Suspected Sepsis SIRS Temperature: Pulse: 92 Respiratory Rate: 18 Laboratory Tests 08/23/21 10:05: White Blood Count 14.9H Blood Pressure 141 /117 Mean: 125 Laboratory Tests 08/23/21 10:05: Creatinine 0.63, INR Comment 1.1, Platelet Count 295, Total Bilirubin 0.6 Results/Orders Lab Results Laboratory Tests Test 08/23/21 10:05 Range/Units White Blood Count 14.9 H 4.3-11.0 10^3/uL Red Blood Count 6.36 H 3.80-5.11 10^6/uL Hemoglobin 17.9 H 11.5-16.0 g/dL Hematocrit 55 H 35-52 % Mean Corpuscular Volume 86 80-99 fL Mean Corpuscular Hemoglobin 28 25-34 pg Mean Corpuscular Hemoglobin Concent 33 32-36 g/dL Red Cell Distribution Width 12.5 10.0-14.5 % Platelet Count 295 130-400 10^3/uL Mean Platelet Volume 11.7 9.0-12.2 fL Immature Granulocyte % (Auto) 1 % Neutrophils (%) (Auto) 81 H 42-75 % Lymphocytes (%) (Auto) 13 12-44 % Monocytes (%) (Auto) 5 0-12 % Eosinophils (%) (Auto) 1 0-10 % Basophils (%) (Auto) 0 0-10 % Neutrophils # (Auto) 12.0 H 1.8-7.8 10^3/uL Lymphocytes # (Auto) 1.9 1.0-4.0 10^3/uL Monocytes # (Auto) 0.7 0.0-1.0 10^3/uL Eosinophils # (Auto) 0.1 0.0-0.3 10^3/uL Basophils # (Auto) 0.1 0.0-0.1 10^3/uL Immature Granulocyte # (Auto) 0.1 0.0-0.1 10^3/uL Neutrophils % (Manual) 77 % Lymphocytes % (Manual) 11 % Monocytes % (Manual) 6 % Eosinophils % (Manual) 1 % Basophils % (Manual) 0 % Band Neutrophils 0 % Reactive Lymphocytes 5 % Blood Morphology Comment NORMAL Prothrombin Time 14.8 H 12.2-14.7 SEC INR Comment 1.1 0.8-1.4 Activated Partial Thromboplast Time 24 24-35 SEC Sodium Level 136 135-145 MMOL/L Potassium Level 3.0 L 3.6-5.0 MMOL/L Chloride Level 94 L 98-107 MMOL/L Carbon Dioxide Level 29 21-32 MMOL/L Anion Gap 13 5-14 MMOL/L Blood Urea Nitrogen 7 7-18 MG/DL Creatinine 0.63 0.60-1.30 MG/DL Estimat Glomerular Filtration Rate 99 BUN/Creatinine Ratio 11 Glucose Level 164 H 70-105 MG/DL Calcium Level 9.0 8.5-10.1 MG/DL Corrected Calcium 9.6 8.5-10.1 MG/DL Total Bilirubin 0.6 0.1-1.0 MG/DL Aspartate Amino Transf (AST/SGOT) 125 H 5-34 U/L Alanine Aminotransferase (ALT/SGPT) 170 H 0-55 U/L Alkaline Phosphatase 1092 H 40-136 U/L C-Reactive Protein High Sensitivity 1.94 H 0.00-0.50 MG/DL Total Protein 6.5 6.4-8.2 GM/DL Albumin 3.3 3.2-4.5 GM/DL My Orders Orders - LAZARO OLIVEIRA MD Cbc With Automated Diff (08/23/21 09:38) Comprehensive Metabolic Panel (08/23/21 09:38) Protime With Inr (08/23/21 09:38) Partial Thromboplastin Time (08/23/21 09:38) Ed Iv/Invasive Line Start (08/23/21 09:38) Chest Pa/Lat (2 View) (08/23/21 09:38) Manual Differential (08/23/21 10:05) Hs C Reactive Protein (08/23/21 11:09) Potassium Chloride (Tablet) (Klor Con Ta (08/23/21 11:45) Medications Given in ED Current Medications Medications Dose Ordered Sig/Jason Route Start Time Stop Time Status Last Admin Dose Admin Potassium Chloride 40 meq ONCE ONCE PO 08/23/21 11:45 08/23/21 11:46 DC 08/23/21 11:57 40 MEQ Vital Signs/I&O 08/23/21 08/23/21 10:05 12:10 Temp 36.1 Pulse 92 97 Resp 18 18 B/P (MAP) 141/117 (125) 145/131 Pulse Ox 96 98 O2 Delivery Nasal Cannula Room Air Capillary Refill : Blood Pressure Mean: 125 Progress Note : Progress Note Basic labs were assessed along with a chest x-ray. There is density in the right upper lung consistent with neoplastic mass. There is additional concern for possible pneumonia, especially given the elevation in WBC. No pneumothorax was seen. Antibiotics were prescribed. Hypokalemia was noted and potassium was provided. There was some concern for the possibility of pneumonia contributing to the hemoptysis. Levaquin was prescribed. I discussed hemoptysis with Dr. Tsai. There is no concern for need for surgical intervention or trauma from the procedure. Diagnostic Imaging Diagonstic Imaging: Xray Plain Films/CT/US/NM/MRI: chest Comments NAME: ANA CRISTINA CHERRY [facility] REC#: [id number] PT STATUS: REG ER : 1970 PHYSICIAN: LAZARO OLIVEIRA MD ADMIT DATE: 08/23/21/ER Signed Date of Exam:08/23/21 CHEST PA/LAT (2 VIEW) INDICATION: Hemoptysis. FINDINGS: Two views of the chest show the heart size and vascularity to be within normal limits. There are small bilateral effusions present, slightly greater on the right than the left, but there has been marked reduction in the amount of effusion compared to the 07/25/2021 study with re-expansion of the right lung. There is now seen 2 cm abnormal density in the right upper lobe which represents bronchogenic carcinoma until proven otherwise. There is no pneumothorax. IMPRESSION: Marked improved aeration of the right lung with a decrease in the right-sided effusion. There is a right upper lung mass seen. This could be evaluated further with PET scan, if felt indicated. This could be evaluated further with CT and biopsied using CT guidance, if felt indicated. Dictated by: Dictated on workstation # [id number] Dict: 08/23/21 1101 Trans: 08/23/21 1115 [id number] Interpreted by: MARCO PERALTA MD Electronically signed by: MARCO PERALTA MD 08/23/21 1115 Departure Impression Primary Impression: Hemoptysis Additional Impressions: Hypokalemia Metastatic adenocarcinoma Elevated transaminase level Disposition: HOME, SELF-CARE Condition: Improved Departure-Patient Inst. Decision time for Depature: 11:45 Referrals: WILMA MUNOZ DO (PCP/Family) Primary Care Physician Patient Instructions: Coughing up Blood Add. Discharge Instructions: Your episodes of coughing up blood may be related to your cancer or infection such as pneumonia. It is less likely related to your procedure. Complete your antibiotics as prescribed. Return to the ER promptly if you develop worsening symptoms including escalating bleeding, shortness of breath, fever, worsening cough, lightheadedness, etc. Follow-up with your primary care doctor as soon as possible. Call with any questions or concerns. All discharge instructions reviewed with patient and/or family. Voiced understanding. Scripts Potassium Chloride (Potassium Chloride) 10 Meq Capsule.er 10 MEQ PO DAILY, #15 CAP Prov: LAZARO OLIVEIRA MD 08/23/21 Levofloxacin (Levofloxacin) 750 Mg Tablet 750 MG PO DAILY, #5 TAB Prov: LAZARO OLIVEIRA MD 08/23/21 Copy Copies To 1: WILMA MUNOZ JOSHUA T MD Aug 23, 2021 12:00
[2021-08-23 12:10] VITALS: BP 145/131
== END 2021-08-23 12:10 | disposition home or self-care (01) ==
LOC: EDUNIT# 09:33 → ER 09:35
DX: C79.9 Secondary malignant neoplasm of unspecified site (principal); R04.2 Hemoptysis; E87.6 Hypokalemia; R74.01 Elevation of levels of liver transaminase levels; J44.9 Chronic obstructive pulmonary disease, unspecified; I10 Essential (primary) hypertension; F41.9 Anxiety disorder, unspecified; F32.9 Major depressive disorder, single episode, unspecified; F17.210 Nicotine dependence, cigarettes, uncomplicated; Z86.73 Personal history of transient ischemic attack (TIA), and cerebral infarction without residual deficits; Z79.899 Other long term (current) drug therapy; Z79.82 Long term (current) use of aspirin
CPT/HCPCS: 36415; 71046; 80053; 85007; 85027; 85610; 85730; 86141